=== PATIENT | female | born 1965 | race Caucasian/White ===

== ENCOUNTER 2020-03-16 15:10 | Outpatient (REF) | payer OTHER, SELFPAY ==
--- NOTE | 2020-03-16 | CT_ITS ---
EXAMINATION: CT ABDOMEN AND PELVIS WITH CONTRAST CLINICAL INFORMATION: Lower abdominal pain COMPARISON: 12/16/2018 TECHNIQUE: Multidetector volumetric images were obtained from the superior aspect of the liver through the pubic symphysis following administration 85 mL of Omnipaque 350 intravenous contrast. Sagittal and coronal reformatted images were obtained on the technologist's workstation. Oral contrast: Oral contrast was administered This CT examination was performed using dose optimization techniques as appropriate, variously including the following: *Automated exposure control *Adjustment of mA and/or kV according to patient size (this includes techniques or standardized protocols for targeted exams where dose is matched to indication/reason for exam; i.e. extremities or head) *Use of iterative reconstruction technique DLP: 530 mGy-cm FINDINGS: LUNG BASES: The visualized lung bases are unremarkable. LIVER, GALLBLADDER, AND BILIARY TREE: Diffuse fatty infiltration of the liver. The gallbladder is unremarkable with no evidence of radiopaque gallstones, gallbladder wall thickening, or obvious pericholecystic inflammatory changes. PANCREAS: Unremarkable. SPLEEN: Unremarkable. ADRENAL GLANDS: Unremarkable. KIDNEYS AND URETERS: Redemonstration of the predominantly fatty exophytic mass at the inferior pole of the left kidney likely representing an angiomyolipoma with maximal transverse measurement of 2.4 cm, unchanged. Otherwise unremarkable with no hydronephrosis. Nephrograms are symmetric. BLADDER: Unremarkable. GASTROINTESTINAL TRACT: Small and large bowel loops are unremarkable with no focal inflammatory process or obstruction. ABDOMINAL WALL: No significant hernia is appreciated. LYMPH NODES: Normal. VASCULAR: Unremarkable. PELVIC VISCERA: The uterus is absent. OSSEOUS STRUCTURES: Unremarkable. IMPRESSION: Stable predominantly fatty exophytic lesion at the inferior pole of the left kidney, likely an angiomyolipoma, measuring 2 cm. No focal inflammatory process or obstruction. Diffuse fatty infiltration of the liver.
[2020-03-16] MEDS: iohexoL 350 MG/ML 100 ML INFUS..BTL IV (16:31)
[2020-03-16] MEDS: Barium Sulfate Oral (Berry) 450 ML ORAL.SUSP PO ×2 (16:32→16:33)
== END 2020-03-16 15:11 | disposition home or self-care (01) ==
LOC: HO.CT 15:10
PROVIDERS: PCP Internal Medicine; Visit Provider Nurse Practitioner
DX: R10.30 Lower abdominal pain, unspecified (principal); K70.31 Alcoholic cirrhosis of liver with ascites
CPT/HCPCS: 74177

== ENCOUNTER 2020-03-23 10:48 | Day surgery (SDC) | payer OTHER, SELFPAY ==
[2020-03-23 10:51] VITALS: BP 142/85; PULSE 66; RESP 16; TEMP 36.2; O2SAT 99
--- NOTE | 2020-03-23 10:59 | P.CONAN_ITS ---
[facility] Past Medical History Medical History Dyspepsia Fibromyalgia Normal colonoscopy SVT (supraventricular tachycardia) Tachycardia Vomiting and diarrhea Surgical History Surgical History History of breast biopsy History of esophagogastroduodenoscopy (EGD) History of hysterectomy Tubal ligation status Social History Social History Smoking Status: Never smoker Use of substances other than those prescribed or required for medical reasons: No Advance Directives: No Meds Allergies Allergy/AdvReac Type Severity Reaction Status Date / Time No Known Allergies Allergy Verified 03/19/20 13:06 Home Medications Medication Instructions Recorded Confirmed Type Cymbalta 30 mg PO DAILY 03/19/20 03/19/20 History cyclobenzaprine 10 mg PO PRN 03/19/20 History gabapentin 1 cap PO DAILY 03/19/20 03/19/20 History lubiprostone [Amitiza] 24 mcg PO BID 03/19/20 03/19/20 History metoclopramide HCl [Reglan] 5 mg PO DAILY 03/19/20 03/19/20 History metoprolol succinate 1 tab PO DAILY 03/19/20 03/19/20 History promethazine 25 mg MN Q12H PRN 03/19/20 03/19/20 History tramadol 1 tab PO DAILY PRN 03/19/20 03/19/20 History Exam Exam Date and Time: March 23, 2020 1059 Height,Weight and Vital Signs: Height 5 ft 6 in Weight 84.395 kg Last Vital Signs Temp 97.1 F 03/23/20 10:51 Pulse 66 03/23/20 10:51 Resp 16 03/23/20 10:51 BP 142/85 H 03/23/20 10:51 Pulse Ox 99 03/23/20 10:51 Airway Mallampati Class: I TM Dist: >3cm Neck ROM: Full Heart: RRR Lungs: CTA Assessment and Plan Assessment Anesthesia Assessment: Anesthesia Plan Discussed and Chart Reviewed Final Anesthetic Review NPO: Yes ASA Class: II Patient Risk: Low Procedure Risk: Intermediate Anesthetic Plan Anesthetic Plan: MAC: Disposition: Standard PACU
--- NOTE | 2020-03-23 11:00 | MHC.SHP ---
Pre-Procedural Eval Section A Changes since office visit: No Cold of Flu in the past 2 weeks The History & Physical has been completed within 30 days and I have reviewed it.: No Section B Chief Complaint: Lower Abd pain, Nausea and Vomiting, constipation Details of Present Illness: Nausea and vomiting, epigastric and lower abdominal pain, abdominal bloating. Relevant Family History (Specify if Yes): No Relevant Social History: None Present Medications: see Short Stay Collaborative assessment Medical History: Significant History ( Dyspepsia. Fibromyalgia. Tachycardia. SVT. ) History of Previous Operations: No relevant previous surgery (hyst - ovaries remain tubal ligation right breast biopsy 2005 EGD-[place] 2018 colonoscopy-[place] 2010 ) Allergies: Allergies Allergy/AdvReac Type Severity Reaction Status Date / Time No Known Allergies Allergy Verified 03/19/20 13:06 Review of Systems Sugical H&P ROS: Negative: Constitution, Respiratory and Musculoskeletal and Yes, Specify: Cardiovascular (Palpitations) and Gastrointestinal (abdoiminal pain, constipation) Exam Surgical H&P Exam: Normal: Heart, Normal: Lungs, Normal: Extremities and Normal: Abdomen Plan Diagnosis/Plan: Unchanged Patient has been examined and remains a candidate for the planned procedure
--- NOTE | 2020-03-23 11:21 | P.BOP_ITS ---
Brief Operative Note Date of procedure: 03/23/20 Pre-op diagnosis: nausea and vomiting, abdominal pain and bloating, chronic c onstipation. Post-op diagnosis: other ( Gastritis, colon polyps, diverticulosis, hemorrhoids) Procedure: FLEXIBLE TRANSORAL UPPER GASTROINTESTINAL ENDOSCOPY AND COLONOSCOPY PROCEDURE NOTE UPPER ENDOSCOPY WITH BIOPSIES Consent: Indications for the procedure and potential complications of bleeding, perforation, reaction to medications and missed diagnosis were discussed with the patient with the help of a mixer operator hot metal and informed consent was obtained. Instrument: Olympus GIF H 190 mid size upper endoscope Monitoring: Vital signs and clinical assessment, continuous EKG monitoring, Pulse oximetry, Carbon Dioxide monitoring and blood pressure monitoring were done throughout the procedure. Procedure: The patient was placed in the left lateral decubitis position and pre-procedure medications were administered and a bite block was placed. The endoscope was inserted into the mouth and advanced under direct vision to the third part of duodenum. A careful inspection was made as the upper endoscope was withdrawn including a retroflexed examination of the proximal stomach; Findings and interventions are described below. Findings: Larynx: Normal Esophagus: Tortuous esophagus with increased tertiary contractions without stricture or ring. GE junction at 35 cms. No esophagitis or Barretts. Stomach: Moderate diffuse gastric erythema with nodular appearing gastric mucosa and some scarring along the lesser curvature -suggestive of past PUD. Biopsies were obtained from the antrum and body of the stomach. Grade 2 flap valve on retroflexed examination of the cardia. Duodenum: Normal bulb and descending duodenum. Biopsies were obtained from her part duodenum to check celiac sprue Intervention: Biopsies as noted above COLONOSCOPY TILL CECUM WITH BIOPSIES Consent: Indications for the procedure and potential complications of bleeding, perforation, reaction to medications and missed diagnosis were discussed with the patient and informed consent was obtained. Instrument: Olympus PCF H 190 L variable stiffness pediatric colonoscope Monitoring: Vital signs and clinical assessment, intermittent blood pressure monitoring, continuous EKG monitoring, Pulse oximetry and Carbon Dioxide monitoring were done throughout the procedure. Colon withdrawl time was 28 minutes. Procedure: The patient was placed in the left lateral decubitis position and pre-procedure medications were administered. After a digital rectal examination of the ano-rectum, the video colonoscope was inserted into the rectum and advanced through the colon to the cecum. The colonoscope was slowly withdrawn in a retrograde panoramic fashion and the colon mucosa was carefully examined including a retroflexed view of the rectum. Findings and interventions are described below. Procedure Difficulty: Without difficulty Findings: Terminal Ileum: Distal 2-3 cms was examined and appeared normal - random biopsies were obtained. Cecum: A 4-5 mm sessile polyp overlying the ICV - removed with a cold biopsy. Ascending Colon: Two 4-5 mm sessile polyps removed with cold biopsy. Transverse Colon: Normal Descending Colon: Normal Sigmoid Colon: Moderate diverticulosis Rectum: Normal Ano-rectum: Moderate internal hemorrhoids Colon preparation:Good Impression and Post Procedure Diagnosis: Endoscopy Findings: STOMACH: Moderate diffuse gastric erythema with nodular appearing gastric mucosa.. Biopsies were obtained from the antrum and body of the stomach. DUODENUM: Normal - biopsied to check for celiac sprue. Colonoscopy Findings: Three small polyps removed Random biopsies were obtained from the colon. Moderate diverticulosis seen in the sigmoid colon Moderate hemorrhoids on retroflexed exam - likely source of rectal bleeding Plan: Await pathology results Patient to schedule a FU appointment in the GI Clinic with Marah Pacheco NP. Repeat Colonoscopy interval based on path results - in 3-5 years if polyps are adenomatous and 10 years if polyps are hyperplastic. Above findings were reviewed with the patient and colon polyps, Gastritis and hemorrhoids handouts were given in the discharge area Surgeon: Vicki Mejia MD Anesthesia: MAC (Dr Barragan & Rylee Tatum CRNA) Dev Technical Mgr: Tabitha Smiley Pathology: other (A. small-bowel, B. gastric antrum, C. gastric body, D. ascending colon polyps x 2, E. terminal ileum, F. polyp ileocecal valve, G. random colon biopsies. ) Condition: stable Disposition: PACU
[2020-03-23 12:24] VITALS: BP 128/72; PULSE 69; RESP 18; TEMP 36.1; O2SAT 98
[2020-03-23 12:39] VITALS: BP 145/88; PULSE 62; RESP 18; TEMP 36.1; O2SAT 99
--- NOTE | 2020-03-23 13:07 | HO.POSTANES ---
Post Anesthesia Evaluation Post Anesthesia Evaluation Vital Signs: Vital Signs Temp Pulse Resp BP Pulse Ox 03/23/20 12:39 97 F 62 18 145/88 H 99 03/23/20 12:24 97 F 69 18 128/72 98 03/23/20 10:51 97.1 F 66 16 142/85 H 99 Anesthesia: Monitored Mental Status: Awake Pain Control: Satisfactory Nausea/Vomiting: None Hydration: Adequate Anesthesia-Related Issues: No Anes. Related Issues
--- NOTE | 2020-04-18 15:04 | P.OP_ITS ---
Operative Note Operative Note Narrative: Date of procedure: 03/23/20 Pre-op diagnosis: nausea and vomiting, abdominal pain and bloating, chronic constipation. Post-op diagnosis: other ( Gastritis, colon polyps, diverticulosis, hemorrhoids) Procedure: FLEXIBLE TRANSORAL UPPER GASTROINTESTINAL ENDOSCOPY WITH BIOPSIES AND COLONOSCOPY TO CECUM WITH BIOPSIES UPPER ENDOSCOPY WITH BIOPSIES Consent: Indications for the procedure and potential complications of bleeding, perforation, reaction to medications and missed diagnosis were discussed with the patient with the help of a floor supervisor and informed consent was obtained. Instrument: Olympus GIF H 190 mid size upper endoscope Monitoring: Vital signs and clinical assessment, continuous EKG monitoring, Pulse oximetry, Carbon Dioxide monitoring and blood pressure monitoring were done throughout the procedure. Procedure: The patient was placed in the left lateral decubitis position and pre-procedure medications were administered and a bite block was placed. The endoscope was inserted into the mouth and advanced under direct vision to the third part of duodenum. A careful inspection was made as the upper endoscope was withdrawn including a retroflexed examination of the proximal stomach; Findings and interventions are described below. Findings: Larynx: Normal Esophagus: Tortuous esophagus with increased tertiary contractions without stricture or ring. GE junction at 35 cms. No esophagitis or Barretts. Stomach: Moderate diffuse gastric erythema with nodular appearing gastric mucosa and some scarring along the lesser curvature -suggestive of past PUD. Biopsies were obtained from the antrum and body of the stomach. Grade 2 flap valve on retroflexed examination of the cardia. Duodenum: Normal bulb and descending duodenum. Biopsies were obtained from her part duodenum to check celiac sprue Intervention: Biopsies as noted above COLONOSCOPY TILL CECUM WITH BIOPSIES Consent: Indications for the procedure and potential complications of bleeding, perforation, reaction to medications and missed diagnosis were discussed with the patient and informed consent was obtained. Instrument: Olympus PCF H 190 L variable stiffness pediatric colonoscope Monitoring: Vital signs and clinical assessment, intermittent blood pressure monitoring, continuous EKG monitoring, Pulse oximetry and Carbon Dioxide monitoring were done throughout the procedure. Colon withdrawl time was 28 minutes. Procedure: The patient was placed in the left lateral decubitis position and pre-procedure medications were administered. After a digital rectal examination of the ano-rectum, the video colonoscope was inserted into the rectum and advanced through the colon to the cecum. The colonoscope was slowly withdrawn in a retrograde panoramic fashion and the colon mucosa was carefully examined including a retroflexed view of the rectum. Findings and interventions are described below. Procedure Difficulty: Without difficulty Findings: Terminal Ileum: Distal 2-3 cms was examined and appeared normal - random biopsies were obtained. Cecum: A 4-5 mm sessile polyp overlying the ICV - removed with a cold biopsy. Ascending Colon: Two 4-5 mm sessile polyps removed with cold biopsy. Transverse Colon: Normal Descending Colon: Normal Sigmoid Colon: Moderate diverticulosis Rectum: Normal Ano-rectum: Moderate internal hemorrhoids Colon preparation:Good Impression and Post Procedure Diagnosis: Endoscopy Findings: STOMACH: Moderate diffuse gastric erythema with nodular appearing gastric mucosa.. Biopsies were obtained from the antrum and body of the stomach. DUODENUM: Normal - biopsied to check for celiac sprue. Colonoscopy Findings: Three small polyps removed Random biopsies were obtained from the colon. Moderate diverticulosis seen in the sigmoid colon Moderate hemorrhoids on retroflexed exam - likely source of rectal bleeding Plan: Await pathology results Patient to schedule a FU appointment in the GI Clinic with Marah Pacheco NP. Repeat Colonoscopy interval based on path results - in 3-5 years if polyps are adenomatous and 10 years if polyps are hyperplastic. Above findings were reviewed with the patient and colon polyps, Gastritis and hemorrhoids handouts were given in the discharge area Surgeon: Vicki Mejia MD Anesthesia: MAC (Dr Barragan & Rylee Tatum CRNA) Vending Attendant: Tabitha Smiley Pathology: other (A. small-bowel, B. gastric antrum, C. gastric body, D. ascending colon polyps x 2, E. terminal ileum, F. polyp ileocecal valve, G. random colon biopsies. ) Condition: stable Disposition: PACU
== END 2020-03-23 13:20 | disposition home or self-care (01) ==
PROVIDERS: PCP Internal Medicine; Visit Provider Internal Medicine Gastroenterology
PROC: (CPT 45380; principal; 2020-03-23 13:30)
DX: R10.30 Lower abdominal pain, unspecified (principal); D12.0 Benign neoplasm of cecum; D12.2 Benign neoplasm of ascending colon; K57.30 Diverticulosis of large intestine without perforation or abscess without bleeding; K64.8 Other hemorrhoids; K29.50 Unspecified chronic gastritis without bleeding; B96.81 Helicobacter pylori [H. pylori] as the cause of diseases classified elsewhere; Z79.899 Other long term (current) drug therapy
CPT/HCPCS: 45380; 43239; 88305; 88342

== ENCOUNTER → 2020-03-30 12:55 | Outpatient (BNVA) | payer OTHER, SELFPAY | PROVIDERS: PCP Internal Medicine; Visit Provider Nurse Practitioner | DX: K27.9 Peptic ulcer, site unspecified, unspecified as acute or chronic, without hemorrhage or perforation (principal); B96.81 Helicobacter pylori [H. pylori] as the cause of diseases classified elsewhere; K64.9 Unspecified hemorrhoids; D12.6 Benign neoplasm of colon, unspecified | CPT/HCPCS: 99214 ==

== ENCOUNTER → 2020-05-11 12:43 | Outpatient (BNVA) | payer OTHER, SELFPAY | PROVIDERS: PCP Internal Medicine; Visit Provider Nurse Practitioner | DX: Z76.89 Persons encountering health services in other specified circumstances (principal) ==

== ENCOUNTER 2020-08-13 12:41 | Outpatient (REF) | payer OTHER, SELFPAY ==
--- NOTE | ~2020-08-13 | MM_ITS ---
EXAMINATION: MM SCREENING DIGITAL BREAST TOMOSYNTHESIS, BILATERAL CLINICAL INFORMATION: Screening. Asymptomatic. The lifetime risk of breast cancer based on the Tyrer-Cuzick Model is 12%. COMPARISON: Mammography: 08/06/2019, 10/08/2018, 02/12/2018 TECHNIQUE: Digital breast tomosynthesis is performed in both the craniocaudal and mediolateral oblique views along with computer-aided detection (CAD). Synthesized 2D images are generated from the tomosynthesis. FINDINGS: There are scattered areas of fibroglandular density (ACR BI-RADS breast composition Category b). There are no significant masses, abnormal calcifications, or other abnormalities. Parenchymal pattern is similar to prior studies. No significant change. Again, there is dermal lesion overlying the lower left breast. There are 3 biopsy clip markers again seen on the left upper outer quadrant. MM/MM tomosynthesis screening BI IMPRESSION: No significant changes from prior exams. ASSESSMENT: BI-RADS 2: Benign RECOMMENDATION: Routine annual mammography screening. This patient's information was entered into a reminder system with a target due date for their next mammogram.
== END 2020-08-13 12:42 | disposition home or self-care (01) ==
LOC: HO.MAMMO 12:41
PROVIDERS: PCP Internal Medicine; Visit Provider Internal Medicine
DX: Z12.31 Encounter for screening mammogram for malignant neoplasm of breast (principal)
CPT/HCPCS: 77063; 77067

== ENCOUNTER → 2020-09-02 13:38 | Outpatient (BNVA) | payer OTHER, SELFPAY | PROVIDERS: PCP Internal Medicine; Visit Provider Internal Medicine Cardiovascular Disease | DX: R00.2 Palpitations (principal) | CPT/HCPCS: 93005; 99202 ==

== ENCOUNTER → 2020-10-12 13:38 | Outpatient (BNVA) | payer OTHER, SELFPAY | PROVIDERS: PCP Internal Medicine; Visit Provider Nurse Practitioner ==

== ENCOUNTER → 2020-10-15 09:29 | Outpatient (REF) | payer OTHER, SELFPAY ==
--- NOTE | 2020-10-15 09:32 | CA_ITS ---
Transthoracic Echocardiogram Patient (Last, First, Middle): Melanie Villarreal, Gender: Female Date of : 1965 Age: 55 Procedure Date: 10/15/2020 Procedure Type: Transthoracic Echocardiogram Location: OP Height: 167.64 cm Weight: 83.92 kg BSA: 1.93 m2 Heart Rate: bpm BP: 145 / 89 mmHg [employer] Technician: DSG Referring MD: Lenny Barrientos MD Symptoms: R00.2 - Palpitations Study Quality: Good ECG Rhythm: Sinus Conclusions: - The left ventricular systolic function is normal. The visually estimated ejection fraction is between 65-70%. - No obvious valvular pathology seen on this study. - There is an interatrial septal aneurysm seen bowing to the right. Interatrial shunt cannot be excluded. - Recommend contrast study to evaluate intracardiac shunting (bubble study). Findings Left Ventricle Normal left ventricular cavity size. There is normal left ventricular wall thickness. The left ventricular systolic function is normal. The visually estimated ejection fraction is between 65-70%. There is no evidence of regional wall motion abnormalities. Diastolic function is normal for age. Right Ventricle Normal right ventricular cavity size and systolic function. Atria The left atrium is normal in size. There is an interatrial septal aneurysm seen bowing to the right. Interatrial shunt cannot be excluded. The right atrium is normal in size. Aortic Valve There is a normal trileaflet aortic valve. There is no aortic valve stenosis. There is no aortic valve regurgitation. Mitral Valve The mitral valve appears normal. There is trace mitral valve regurgitation. There is no mitral valve stenosis. Pulmonic Valve The pulmonic valve was not well visualized. Tricuspid Valve Normal tricuspid valve structure. There is mild tricuspid valve regurgitation. The pulmonary artery systolic pressure is normal. Great Vessels The aortic annulus, sinuses of valsalva, asc aorta, and aortic arch are normal in size. Venous The inferior vena cava is normal in size and collapses greater than 50% with inspiration. Pericardium/Pleural There is no evidence of pericardial effusion. Prior Study Comparison No prior study available for comparison. Recommendations, Care & Conclusions No obvious valvular pathology seen on this study. Recommend contrast study to evaluate intracardiac shunting. Measurements 2D Linear Measurements IVSd: 1.02 0.6-0.9/0.6-1.0 cm LVIDd: 4.32 3.9-5.3/4.2-5.9 cm LVIDd Index: 2.24 2.4-3.2/2.2-3.1 cm/m2 LVIDs: 3.11 2.0-3.6 cm LVPWd: 0.95 0.7-1.1 cm Ao Root: 2.80 2.1-3.5 cm LA Diam: 3.80 2.7-3.8/3.0-4.0 cm LAIDs Index: 1.97 1.5-2.3 cm/m2 LV Mass: 174.97 67-162/88-224 g LV Mass Index: 90.66 43-95/49-115 g/m2 LVOT Diam: 1.90 3.0+(-)1.3 cm 2D Systolic Function EF 4C: 68.80 >55% EF 2C: 61.60 >55% EF BiP: 64.80 >55% Mitral Valve MV Pk E: 0.66 MV PK A: 0.83 MV Decel Time: 223.00 E/A: 0.80 E'Lateral: 8.90 E'Medial: 6.19 E/E' Med: 10.70 E/E' Lat: 7.40 PHT: 66.00 MVA PHT: 3.33 Decel Laurel: 3.08 Aortic Valve AoV Pk Maykel: 1.26 AoV Pk Grad: 6.00 LVOT LVOT Pk Maykel: 1.09 LVOT Mn Maykel: 0.71 LVOT VTI: 0.26 LVOT Pk Grad: 5.00 LVOT Mn Grad: 2.00 LVOT Diam: 1.90 LVOT Area: 2.84 Diastolic Function MV Pk E: 0.66 MV Pk A: 0.83 E/A: 0.80 E'Medial: 6.19 E/E' Med: 10.70 E' Laterial: 8.90 E/E' Lat: 7.40 Tricuspid Valve TR Pk Maykel: 1.91 TR Pk Grad: 15.00 RA Press: 3.00 RVSP: 18.00 Great Vessels Aorta Ao Root-2D: 2.80 2.0-3.7 cm Ao Asc: 3.00 2.1-3.4 cm Ao Arch: 2.80 Updated in Other Vendor System with Status of Final Alexander Mas MD electronically signed on 10/16/2020 4:05:38 PM with status of Final
--- NOTE | 2020-10-15 10:00 | ECG_ITS ---
Hook-up date: 2020-10-15 10:40:00 Duration: 47:59:00 Test Indications: PALPITATIONS Medications: [id number] QRS complexes 3 Ventricular ectopics which represent <1 % of total QRS comp. 2 Supraventricular ectopics which represent <1 % of total QRS comp. * Paced QRS complexs which represent % of total QRS comp. VENTRICULAR ECTOPY 3 Isolated 0 Bigeminal Cycles 0 Couplets 0 Runs 0 Beats in Runs * Beats LONGEST at * BPM at :: -- * Beats FASTEST at * BPM at :: -- SUPRAVENTRICULAR ECTOPY 2 Isolated 0 Couplets 0 Runs 0 Beats in Runs * Beats LONGEST at * BPM at :: -- * Beats FASTEST at * BPM at :: -- HEART RATES 52 MIN at 05:15:32 2020-10-17 82 AVG 131 MAX at 12:34:33 2020-10-16 LONGEST RR 1.2320 secs at 02:25:24 2020-10-16 S-T LEVELS Channel 1 - 128 mm at 10:40:00 2020-10-15 - 128 mm at 10:40:00 2020-10-15 Channel 2 - 128 mm at 10:40:00 2020-10-15 - 128 mm at 10:40:00 2020-10-15 Channel 3 - 128 mm at 02:95:91 -- - 128 mm at 02:95:91 Basic rhythm Normal sinus rhythm No long pause or profound bradycardia No dangerous dysrhythm periods Patient did not report any symptoms in the diary Referred By: Lenny Barrientos Overread By: LAKESHA LLAMAS MD
== END ==
LOC: HO.CARD 09:29
PROVIDERS: PCP Internal Medicine; Visit Provider Internal Medicine Cardiovascular Disease
DX: R00.2 Palpitations (principal)
CPT/HCPCS: 93225; 93226; 93306

== ENCOUNTER → 2020-10-26 14:48 | Outpatient (BNVA) | payer OTHER, SELFPAY | PROVIDERS: PCP Internal Medicine; Visit Provider Nurse Practitioner ==

== ENCOUNTER → 2020-11-19 07:37 | Outpatient (REF) | payer OTHER, SELFPAY ==
--- NOTE | 2020-11-19 07:40 | CA_ITS ---
Transthoracic Echocardiogram Patient (Last, First, Middle): Melanie Villarreal, Gender: Female Date of : 1965 Age: 55 Procedure Date: 11/19/2020 Procedure Type: Transthoracic Echocardiogram Location: OP Height: 167.6 cm Weight: 83.92 kg BSA: 1.93 m2 Heart Rate: bpm Maintainer Plant: DEB Mcgee MD: Lenny Barrientos MD Educational Psychology Teacher: Skip Phillips MD Symptoms: I25.3 - Aneurysm of heart Study Quality: Fair ECG Rhythm: Sinus Conclusions: - No evidence of PFO Findings Atria There is no evidence of interatrial shunt by agitated saline. Updated in Other Vendor System with Status of Final Skip Phillips MD electronically signed on 11/20/2020 4:26:39 PM with status of Final
== END ==
LOC: HO.CARD 07:37
PROVIDERS: Visit Provider Internal Medicine Cardiovascular Disease
DX: I25.3 Aneurysm of heart (principal)
CPT/HCPCS: 93308

== ENCOUNTER → 2020-11-23 08:51 | Outpatient (BNVA) | payer OTHER, SELFPAY | PROVIDERS: PCP Internal Medicine; Visit Provider Nurse Practitioner ==

== ENCOUNTER → 2020-12-02 14:17 | Outpatient (BNVA) | payer OTHER, SELFPAY | PROVIDERS: PCP Internal Medicine; Referring Provider Internal Medicine; Visit Provider Internal Medicine Cardiovascular Disease | DX: R00.2 Palpitations (principal) | CPT/HCPCS: 99212 ==

== ENCOUNTER 2020-12-30 15:38 | Outpatient (REF) | payer OTHER, SELFPAY ==
--- NOTE | ~2020-12-30 | US_ITS ---
EXAMINATION: US RETROPERITONEAL LIMITED (RENAL ONLY) CLINICAL INFORMATION: Hypertension. Angiolipoma. COMPARISON: CT abdomen and pelvis 03/16/2020. Ultrasound abdomen 12/24/2019 and 12/11/2018. X-ray abdomen KUB 12/11/2018. TECHNIQUE: Real-time imaging of the kidneys. FINDINGS: RIGHT KIDNEY: 11.2 x 4.3 x 4.2 cm (SAG x AP x TRV). The kidney is normal in size, contour, and echogenicity. Renal cortical thickness is normal. No calculi or focal parenchymal lesions. No hydronephrosis. Incidentally noted is extrarenal kidney pelvis. LEFT KIDNEY: 10.1 x 5.0 x 3.9 cm (SAG x AP x TRV). The kidney is normal in size, contour, and echogenicity. Renal cortical thickness is normal. No renal calculi or hydronephrosis. There is an echogenic lesion with flow measuring 2.4 x 2.0 x 2.[address] it measured 2.4 cm. US/US renal BI IMPRESSION: 1. Echogenic mass, lower pole left kidney, likely angiomyolipoma similar to previous CT abdomen exam 03/16/2020. 2. Extrarenal right kidney pelvis. 3. No echogenic stones or hydronephrosis.
== END 2020-12-30 15:39 | disposition home or self-care (01) ==
LOC: HO.US 15:38
PROVIDERS: Visit Provider Internal Medicine Nephrology
DX: D17.9 Benign lipomatous neoplasm, unspecified (principal)
CPT/HCPCS: 76775

== ENCOUNTER → 2021-01-03 15:05 | Outpatient (BNVA) | payer OTHER, SELFPAY | PROVIDERS: PCP Internal Medicine | DX: R32 Unspecified urinary incontinence (principal); R39.15 Urgency of urination; N20.2 Calculus of kidney with calculus of ureter; M79.7 Fibromyalgia; I47.1 Supraventricular tachycardia; Z90.710 Acquired absence of both cervix and uterus; Z98.51 Tubal ligation status | CPT/HCPCS: 99202 ==

== ENCOUNTER 2021-03-10 13:12 | Outpatient (REF) | payer OTHER, SELFPAY ==
--- NOTE | ~2021-03-10 | MR_ITS ---
MRI OF THE BRAIN WITHOUT IV CONTRAST INDICATION: Headache. COMPARISON: None available. TECHNIQUE: Multiplanar multisequence MR imaging of the brain was obtained without IV contrast. FINDINGS: There is no hydrocephalus, extra-axial surface collection, or herniation. Mild chronic microangiopathy. The major flow voids at the skull base are preserved. There is no acute infarct on diffusion-weighted imaging. There is no intracranial hemorrhage on the gradient recalled echo acquisition. The midline structures are normal. The cerebellar tonsils are normally positioned. The cerebellum and brainstem are normal. The craniocervical junction is normal. Osseous marrow signal intensity is homogenous. The visualized soft tissues are unremarkable. MR/MR head/brain wo con IMPRESSION: - No acute intracranial findings. - Mild chronic microangiopathy.
== END 2021-03-10 13:13 | disposition home or self-care (01) ==
LOC: HO.MRI 13:12
PROVIDERS: Visit Provider Internal Medicine
DX: R51.9 Headache, unspecified (principal)
CPT/HCPCS: 70551

== ENCOUNTER → 2021-04-29 13:40 | Outpatient (BNVA) | payer OTHER, SELFPAY | PROVIDERS: PCP Internal Medicine; Visit Provider Nurse Practitioner Family | DX: M89.49 Other hypertrophic osteoarthropathy, multiple sites (principal) | CPT/HCPCS: 99212 ==

== ENCOUNTER → 2021-05-27 15:35 | Outpatient (BNVA) | payer OTHER, SELFPAY | DX: R33.9 Retention of urine, unspecified (principal) | CPT/HCPCS: 51798; 99212 ==

== ENCOUNTER → 2021-06-08 10:48 | Outpatient (BNVA) | payer OTHER, SELFPAY | PROVIDERS: PCP Internal Medicine; Visit Provider Anesthesiology | DX: M79.7 Fibromyalgia (principal); M25.50 Pain in unspecified joint; M47.816 Spondylosis without myelopathy or radiculopathy, lumbar region; M17.10 Unilateral primary osteoarthritis, unspecified knee | CPT/HCPCS: 99202 ==

== ENCOUNTER 2021-07-20 14:49 | Outpatient (REF) | payer OTHER, SELFPAY ==
--- NOTE | ~2021-07-20 | MR_ITS ---
EXAMINATION: MR LUMBAR SPINE WITHOUT CONTRAST CLINICAL INFORMATION: Lower back and hip pain with bilateral leg pain, weakness, numbness, toe numbness, or weakness. Spondylosis. COMPARISON: Lumbar spine radiographs dated 07/30/2019. TECHNIQUE: MRI of the lumbar spine was obtained using routine sequences without contrast. FINDINGS: VERTEBRAL BODIES AND PARASPINAL STRUCTURES: There are diminutive T12 ribs as seen on the prior radiographs. The lumbar lordosis is maintained. Minimal grade 1 anterolisthesis of L4 on L5, unchanged when compared to the prior radiographs. No acute fracture or subluxation. No loss of vertebral body height. Loss of intervertebral disc height with disc desiccation at L2 through L5. No marrow edema to suggest acute osseous injury. The visualized paraspinal soft tissues are unremarkable. CONUS MEDULLARIS AND CAUDA EQUINA: Normal, terminating at the level of T12. SPINAL LEVELS: T12-L1: No significant disc bulge. No central canal or neural foraminal stenosis. L1-L2: Minimal disc bulge without significant central canal or neural foraminal stenosis. L2-L3: Minimal disc bulge with a shallow left subarticular protrusion which abuts the exiting left L2 nerve root in the extraforaminal space. Bilateral facet arthropathy and thickening of the ligamentum flavum with mild left neural foraminal stenosis. L3-L4: Mild broad-based disc bulge with a superimposed shallow left extraforaminal disc protrusion which abuts the exiting left L3 nerve root. Bilateral facet arthropathy and thickening of the ligamentum flavum with mild left neural foraminal stenosis. L4-L5: Broad-based disc bulge with bilateral facet arthropathy and thickening of the ligamentum flavum causing mild central canal stenosis as well as mild bilateral neural foraminal stenosis. L5-S1: No significant disc bulge. Bilateral facet arthropathy. No central canal or neural foraminal stenosis. MR/MR lumbar spine wo con IMPRESSION: 1. Minimal grade 1 anterolisthesis of L4 on L5, unchanged. There is a broad-based disc bulge with bilateral facet arthropathy and thickening of the ligamentum flavum causing mild central canal and mild bilateral neural foraminal stenosis. 2. Minimal disc bulge at L2-L3 with a shallow left subarticular protrusion abutting the exiting left L2 nerve root. Bilateral facet arthropathy and thickening of the ligamentum flavum causing mild left neural foraminal stenosis. 3. Broad-based disc bulge at L3-L4 with a shallow left extraforaminal disc protrusion abutting the exiting left L3 nerve root. Bilateral facet arthropathy and thickening of the ligamentum flavum with mild left neural foraminal stenosis.
== END 2021-07-20 14:50 | disposition home or self-care (01) ==
LOC: HO.MRI 14:49
PROVIDERS: Visit Provider Anesthesiology
DX: M47.816 Spondylosis without myelopathy or radiculopathy, lumbar region (principal); M51.36 Other intervertebral disc degeneration, lumbar region
CPT/HCPCS: 72148

== ENCOUNTER 2021-08-04 11:13 | Emergency (ER) | payer OTHER, SELFPAY ==
--- NOTE | ~2021-08-04 | CT_ITS ---
EXAMINATION: CT ABDOMEN AND PELVIS WITH CONTRAST CLINICAL INFORMATION: History diarrhea. Question diverticulitis. COMPARISON: March 16, 2020 TECHNIQUE: Multidetector volumetric images were obtained from the superior aspect of the liver through the pubic symphysis following administration 85 mL of Omnipaque 350 intravenous contrast. Sagittal and coronal reformatted images were obtained on the technologist's workstation. Oral contrast: No This CT examination was performed using dose optimization techniques as appropriate, variously including the following: *Automated exposure control *Adjustment of mA and/or kV according to patient size (this includes techniques or standardized protocols for targeted exams where dose is matched to indication/reason for exam; i.e. extremities or head) *Use of iterative reconstruction technique DLP: 932 mGy-cm FINDINGS: LUNG BASES: No pleural or pericardial effusion. No significant parenchymal disease. LIVER, GALLBLADDER, AND BILIARY TREE: There is fatty infiltration of the liver as well as hepatomegaly with vertical span of 21 cm. No focal hepatic mass or intrahepatic bile duct dilatation is seen. The gallbladder is unremarkable with no evidence of radiopaque gallstones, gallbladder wall thickening, or obvious pericholecystic inflammatory changes. PANCREAS: Unremarkable. SPLEEN: Unremarkable. ADRENAL GLANDS: Unremarkable. KIDNEYS AND URETERS: There is no evidence of hydronephrosis or renal calculi. Within the lower pole of the left kidney there is an exophytic fat-containing mass measuring approximately 2.2 x 1.8 x 1.2 cm in size. This has been present since previous study of December 16, 2018. BLADDER: Unremarkable. GASTROINTESTINAL TRACT: No dilated loops of large or small bowel evident. No free air or free fluid. No evidence of acute diverticulitis. No pericolonic inflammatory change to suggest colitis. The appendix is not visualized. ABDOMINAL WALL: No significant hernia is appreciated. LYMPH NODES: No lymphadenopathy appreciated. VASCULAR: Portal vein patent. No abdominal aortic aneurysm. No significant calcified plaque appreciated. PELVIC VISCERA: Unremarkable. OSSEOUS STRUCTURES: No destructive bony lesion identified. CT/CT abdomen pelvis w con IMPRESSION: Hepatomegaly with fatty infiltration of the liver. 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 No evidence of obstructive uropathy. No definite evidence to suggest colitis. Fleischner guidelines were followed.
--- NOTE | ~2021-08-04 | XR_ITS ---
EXAMINATION: XR CHEST CLINICAL INFORMATION: latic acid elevated, sob, abd pain COMPARISON: None TECHNIQUE: Frontal portable view of the chest was obtained. 5:45 PM FINDINGS: No significant abnormality is noted involving the heart, lungs, mediastinum, bony thorax or soft tissues. XR/XR chest 1V IMPRESSION: Unremarkable examination.
[2021-08-04 11:33] VITALS: BP 170/97; PULSE 92; RESP 16; TEMP 36.8; O2SAT 100; BMI 29.5
--- NOTE | 2021-08-04 12:10 | ED_ITS ---
HPI - Abdominal Pain General Chief Complaint: Abdominal Pain Stated Complaint: abd pain rectal bleeding Time Seen by Provider: 08/04/21 11:32 Source: patient Mode of arrival: ambulatory Limitations: language barrier (Albanian-speaking medical detailist utilized) History of Present Illness HPI narrative: Patient is a 56-year-old female with a past medical history of chronic idiopathic constipation, GERD, gastroparesis, fatty liver, hypertension, fibromyalgia, hemorrhoids, H pylori. Patient presents emergency department for evaluation of abdominal pain and diarrhea. Patient reports he has been experiencing constipation over the last few days for which she has taken Colace. Three days ago she had an episode of dizziness associated with straining on the toilet, but no further dizziness since then. Reports that her stools were loose/watery and with mucus. Yesterday she was unable to move her bowels. This morning she woke at 03:00 with severe lower abdominal cramping, and bright red blood from her rectum, no further bowel movements. There is associated nausea but no vomiting. Overall she reports diffuse lower abdominal pain to be constant for the past few days but varying in intensity. She denies any fevers, chills, chest pain, palpitations, shortness of breath, difficulty breathing, dysuria, urinary frequency/urgency/hesitancy, pelvic pain, vaginal discharge, abnormal vaginal bleeding, lower back pain. Patient is followed by GI at [facility] elicited complaint: abdominal pain Pertinent past history: constipation Onset (ago): day(s) Pain Consistency: constant Location: diffuse Pain scale (0-10): 7 Quality: cramping Associated symptoms: nausea and hematochezia Related Data Home Medications Medication Instructions Recorded Confirmed dicyclomine 10 mg capsule 10 mg PO TID 07/29/20 01/26/21 Previous Rx's Medication Instructions Recorded duloxetine 30 mg capsule,delayed 30 mg PO DAILY #90 cap 07/02/20 release metoclopramide HCl 5 mg tablet 5 mg PO DAILY 30 Days #60 tab 10/12/20 (Reglan) omeprazole 20 mg capsule,delayed 20 mg PO BID #30 cap 10/12/20 release cyclobenzaprine 10 mg tablet 10 mg PO BEDTIME PRN 90 Days #90 10/14/20 tab gabapentin 400 mg capsule 400 mg PO DAILY 90 Days #90 cap 10/14/20 trazodone 50 mg tablet 50 mg PO BEDTIME PRN 90 Days #90 11/01/20 tab diclofenac sodium 1 % topical gel 2 g TOPICAL QID #100 g 11/16/20 (Voltaren) Proctosol HC 2.5 % topical cream 1 appl PA BID 30 Days #28.35 g NS 11/23/20 perineal applicator (hydrocortisone) bisacodyl 5 mg tablet,delayed 10 mg PO BEDTIME 30 Days #60 tab 11/23/20 release (Dulcolax (bisacodyl)) docusate sodium 100 mg capsule 100 mg PO .DAILY WITH FOOD 30 Days 11/23/20 (Colace) #30 cap simethicone 180 mg capsule 180 mg PO QID 30 Days #120 cap 11/23/20 linaclotide 145 mcg capsule 145 mcg PO DAILY 30 Days #30 cap 02/28/21 Shower Chair #1 ea 03/15/21 walker #1 ea 03/15/21 disposable gloves (Biobrane Gloves #200 ea 04/18/21 Medium) wipes #200 ea 07/04/21 underpads 30 X 36 (Certainty #40 ea 07/05/21 Underpads) hydrochlorothiazide 12.5 mg tablet 12.5 mg PO DAILY 90 Days #90 tab 07/11/21 metoprolol succinate 25 mg 25 mg PO DAILY #30 tab 08/02/21 tablet,extended release 24 hr tramadol 50 mg tablet 50 mg PO DAILY PRN #30 tab 08/02/21 Allergies Allergy/AdvReac Type Severity Reaction Status Date / Time No Known Allergies Allergy Verified 06/08/21 11:52 Review of Systems Review of Systems Constitutional : No Weight loss, No Fever, No Chills ENT/Mouth :? No sore throat, No Rhinorrhea Eyes: No Swelling, No Redness Cardiovascular : No Chest Pain, No SOB, No Edema Respiratory : No Cough, No Sputum, No Wheezing Gastrointestinal : Positive Nausea, no Vomiting, positive Diarrhea, positive abdominal pain, positive Hematochezia, No Melena Genitourinary : No Dysuria, No Urinary Frequency, No Hematuria, No Urgency? Musculoskeletal : No joint pain, No Myalgias, No Joint Swelling Skin : No Skin Lesions, No rash Neuro : No Weakness, No Numbness, No Dizziness, No Headache Psych : No Anxiety/Panic, No Depression Heme/Lymph: No Bruising, No Lymphadenopathy Endocrine : No Polyuria, No Polydipsia All other systems reviewed and are negative. [facility] Past Medical History Attestation statement: The following information was validated with the patient. Source: old records reviewed Medical History Disc degeneration, lumbar Dyspepsia Essential hypertension Fibromyalgia Headache Knee osteoarthritis Normal colonoscopy Osteoarthritis Physical exam Polyarthralgia Retention of urine Skin lesion Spondylosis of lumbar spine Tachycardia Urinary incontinence Vomiting and diarrhea Surgical History History of breast biopsy (~2005) History of esophagogastroduodenoscopy (EGD) (~2017) History of hysterectomy Hx of colonoscopy (~2010) Tubal ligation status Family History Family History Father No problems noted. Mother Pulmonary hypertension CVD (cardiovascular disease) HTN (hypertension) Maternal Aunt Breast cancer Maternal Aunt Breast cancer Paternal Aunt Lymphoma Paternal Uncle Gastric cancer Other Cancer Diabetes Social History Social History Household Members: Family Housing: Apartment Alcohol intake: never Patient Tobacco Use Status: Never used Tobacco e-Cigarette/Vaping Use: Never Used Second Hand Smoke Exposure: No Advance Directives: No Advance Directives Information Provided: No service: No Current occupational status: unemployed Physical Exam ED Vital Signs: Vital Signs - 24 hr 08/04/21 11:33 08/04/21 14:12 Temperature 98.2 F Pulse Rate 92 75 Respiratory Rate 16 16 Blood Pressure 170/97 H 153/91 H Pulse Oximetry 100 100 BMI result Body Mass Index 29.5 Vital signs have been reviewed and appeared to be correct. Blood pressure initially elevated 170/97. Heart rate normal.? Respiration rate normal. Temperature normal.? Oxygen saturation normal. Appearance: Alert.?Oriented to person, place and time. No acute distress.?Normal affect. Eyes: Pupils equal, round and reactive to light.? ENT: Pharynx normal.?? Neck: Normal inspection.? Neck supple.?? CVS: Heart sounds normal. Normal heart rate and rhythm.? Pulses normal.?? Respiratory: No respiratory distress.? Lung sounds clear to auscultation bilaterally?? Abdomen: Soft with diffuse tenderness in the right lower quadrant, left lower quadrant, in mid lower abdomen. No rebound tenderness. Normoactive bowel sounds. No pulsatile mass.??Rectal examination performed with computer installer Justice, no hematochezia, no active homrrhoidal bleeding, there are external hemorrhoids, no stool in rectum to assess for occult blood. Skin: Skin warm and dry.? Normal skin color.? Normal skin turgor.?? Extremities: No lower extremity edema.? Neuro: Moves all extremities spontaneously. Sensation intact bilaterally. CN II- XII intact. No focal neuro deficits. Ambulates with normal steady gait. Course Course Course Narrative: Patient is a 56-year-old female being evaluated for abdominal pain, diarrhea and rectal bleeding. Will obtain CBC to evaluate for leukocytosis/ anemia, CMP and lipase to evaluate for abnormal electrolytes /abnormal renal function/ abnormal hepatic/biliary function. Urinalysis to evaluate for infection/ microscopic hematuria. Her history and physical exam are not consistent with appendicitis, she has no peritoneal signs, involuntary guarding, or percussive tenderness. She is afebrile with stable vital signs. Will obtain CT of the abdomen to exclude diverticulitis or additional intra-abdominal pathology. Not consistent with AAA, aortic dissection, ACS, hernia, bowel obstruction. Discussed with patient having exam however she declines. Patient will receive IV Zofran for nausea, IV Toradol for abdominal pain, and additional 1 L normal saline. Disposition will be pending results. Reevaluation(s) Reevaluation #1: CBC is unremarkable. CMP and lipase are unremarkable. COVID-19 testing is negative. Occult stool card was sent by nursing staff but no specimen was placed on card, therefore negative result isn't valid. Lactic acid is elevated at 2.7 but I suspect this is due to volume depletion with dehydration, Patient has already received normal saline 1 L IV, currently no concern for bacterial infection. Time: 14:30 Reevaluation #2: Patient reports improvement in pain after receiving medication, currently 0/10. She has not experienced any episodes of diarrhea while in the emergency department or any bright red blood per rectum. Abdominal CT is pending at this time. Will plan for p.o. trial. Time: 15:32 Reevaluation #3: Patient ambulated to the bathroom, provided urine specimen. Patient had a very small bowel movement was clear mucus with bright red blood. CT of the abdomen reveals hepatomegaly with fatty infiltrate which is not a new finding according to patient. No acute intra-abdominal pathology suggestive of patient's prior symptoms. No diverticulitis or colitis. Tolerted PO trial. She has had no further episodes of abdominal pain and cramping, I suspect her pain is most consistent with her chronic constipation. UA is pending at this time. Advised patient of results, discussed that she will need to follow up outpatient with her GI provider. If she develops any new or worsening symptoms such as fevers, chills, severe abdominal pain, nausea persistent vomiting, large amounts of bloody or watery diarrhea she should return back to the emergency department for further evaluation. Patient signed out to Aric Zimmerman pending results of urinalysis and repeat lactic acid. Time: 16:05 [facility] - Abdominal Pain Medical Records Attestation: I reviewed the patient's medical records. Lab Data Attestation: I reviewed the patient's lab results. Result diagrams: 08/04/21 12:37 08/04/21 12:37 Labs: Lab Results 08/04/21 08/04/21 08/04/21 Range/Units 12:37 12:37 13:22 WBC 9.7 (4.8-10.8) X10*3/uL RBC 5.29 (4.20-5.50) X10*6/uL Hgb 14.3 (12.0-16.0) g/dl Hct 44.1 (37.0-47.0) % MCV 83.4 (80.0-98.0) fL MCH 27.0 (27.0-33.0) pg MCHC 32.4 (31.0-35.0) g/dl RDW 13.6 (11.0-16.0) % Plt Count 238 (160-400) X10*3/uL MPV 10.9 (9.4-12.3) fL Immature Gran % (Auto) 0.3 (0.0-0.4) % Neut % (Auto) 62.8 (45-73) % Lymph % (Auto) 31.3 (20-40) % [place] % (Auto) 4.5 (2-11) % Eos % (Auto) 0.8 (0-4) % Baso % (Auto) 0.3 (0-2) % Lymph # (Auto) 3.0 (1.2-4.9) X10*3/uL [place] # (Auto) 0.4 (0.1-1.2) X10*3/uL Eos # (Auto) 0.1 (0.0-0.4) X10*3/uL Baso # (Auto) 0.0 (0.0-0.2) X10*3/uL Abs Immat Gran (auto) 0.03 (0.00-0.03) X10*3/uL Absolute Neuts (auto) 6.1 (2.0-8.3) x10*3/uL Absolute Nucleated RBC 0.000 (0.0-0.012) X10*3/uL Nucleated RBC % (auto) 0.0 (0.0-0.2) /100WBC Sodium 138 (135-145) mmol/L Potassium 4.4 (3.3-5.1) mmol/L Chloride 107 (96-108) mmol/L Carbon Dioxide 20 L (22-29) mmol/L Anion Gap 15 (12-20) BUN 15 (9-16) mg/dL Creatinine 0.79 (0.5-1.4) mg/dL Estim Creat Clear Calc 85.3 Estimated GFR > 60 Random Glucose 97 (60-115) mg/dL Lactic Acid (0.5-2.0) mmol/L Calcium 9.7 (8.4-10.2) mg/dL Magnesium 2.3 (1.6-2.6) mg/dL Total Bilirubin 0.5 (0.0-1.0) mg/dL AST 18 (5-31) U/L ALT 25 (0-31) U/L Alkaline Phosphatase 71 (39-117) U/L Total Protein 7.9 (6.5-8.0) g/dL Albumin 4.5 (3.5-5.0) g/dL Lipase 46 (8-78) U/L Stool Occult Blood (NEGATIVE) COVID-19 (MARKOS) Negative (Negative) COVID-19 Clin Com See Note 08/04/21 08/04/21 Range/Units 14:04 14:15 WBC (4.8-10.8) X10*3/uL RBC (4.20-5.50) X10*6/uL Hgb (12.0-16.0) g/dl Hct (37.0-47.0) % MCV (80.0-98.0) fL MCH (27.0-33.0) pg MCHC (31.0-35.0) g/dl RDW (11.0-16.0) % Plt Count (160-400) X10*3/uL MPV (9.4-12.3) fL Immature Gran % (Auto) (0.0-0.4) % Neut % (Auto) (45-73) % Lymph % (Auto) (20-40) % [place] % (Auto) (2-11) % Eos % (Auto) (0-4) % Baso % (Auto) (0-2) % Lymph # (Auto) (1.2-4.9) X10*3/uL [place] # (Auto) (0.1-1.2) X10*3/uL Eos # (Auto) (0.0-0.4) X10*3/uL Baso # (Auto) (0.0-0.2) X10*3/uL Abs Immat Gran (auto) (0.00-0.03) X10*3/uL Absolute Neuts (auto) (2.0-8.3) x10*3/uL Absolute Nucleated RBC (0.0-0.012) X10*3/uL Nucleated RBC % (auto) (0.0-0.2) /100WBC Sodium (135-145) mmol/L Potassium (3.3-5.1) mmol/L Chloride (96-108) mmol/L Carbon Dioxide (22-29) mmol/L Anion Gap (12-20) BUN (9-16) mg/dL Creatinine (0.5-1.4) mg/dL Estim Creat Clear Calc Estimated GFR Random Glucose (60-115) mg/dL Lactic Acid 2.7 H* (0.5-2.0) mmol/L Calcium (8.4-10.2) mg/dL Magnesium (1.6-2.6) mg/dL Total Bilirubin (0.0-1.0) mg/dL AST (5-31) U/L ALT (0-31) U/L Alkaline Phosphatase (39-117) U/L Total Protein (6.5-8.0) g/dL Albumin (3.5-5.0) g/dL Lipase (8-78) U/L Stool Occult Blood NEGATIVE (NEGATIVE) COVID-19 (MARKOS) (Negative) COVID-19 Clin Com Imaging Data CT scan - abdomen: Radiologist's impression: IMPRESSION: Hepatomegaly with fatty infiltration of the liver. ? 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 ? No evidence of obstructive uropathy. ? No definite evidence to suggest colitis.? Discharge Plan Discharge Clinical Impression: Bright red rectal bleeding, Chronic idiopathic constipation Patient Disposition: Home, Self-Care Additional Instructions: As we discussed your blood results were normal. The CT of your abdomen does not indicate a cause for your abdominal pain or rectal bleeding there is no colitis or diverticulitis. Your pain improved after receiving Toradol. While you were here you had a very small amount of clear mucus was bright red blood in it, there was not enough sample to send for stool studies. You should contact your GI provider to schedule a follow-up visit in 1-3 days as they may require further outpatient testing. Please return to the emergency department with any new or worsening concerns, if you develop fevers, chills, severe abdominal pain, nausea persistent vomiting, large amounts of bloody or watery diarrhea please return back to the emergency department. Prescriptions: No Action duloxetine 30 mg capsule,delayed release(DR/EC) 30 mg PO DAILY Qty: 90 1RF cyclobenzaprine 10 mg tablet 10 mg PO BEDTIME PRN (Reason: muscle spasm) 90 Days Qty: 90 1RF gabapentin 400 mg capsule 400 mg PO DAILY 90 Days Qty: 90 1RF trazodone 50 mg tablet 50 mg PO BEDTIME PRN (Reason: sleep) 90 Days Qty: 90 1RF diclofenac sodium [Voltaren] 1 % gel 2 g topical QID Qty: 100 3RF Rx Instructions: apply 2 gram twice daily as needed to bilateral knees linaclotide 145 mcg capsule 145 mcg PO DAILY 30 Days Qty: 30 3RF (DME) walker Misc See Rx Instructions .Route Qty: 1 0RF Rx Instructions: As directed (DME) Shower Chair Misc See Rx Instructions .Route Qty: 1 0RF Rx Instructions: As directed (DME) disposable gloves [Biobrane Gloves Medium] Misc See Rx Instructions .Route Qty: 200 11RF Rx Instructions: Use 1 pair of gloves as needed (DME) wipes See Rx Instructions .Route .MEDSUPPLY Qty: 200 11RF Rx Instructions: As directed (DME) underpads [Certainty Underpads] 30 X 36 pad See Rx Instructions .Route Qty: 40 11RF Rx Instructions: Use 1 underpad once a day hydrochlorothiazide 12.5 mg tablet 12.5 mg PO DAILY 90 Days Qty: 90 0RF metoprolol succinate 25 mg tablet extended release 24 hr 25 mg PO DAILY Qty: 30 6RF tramadol 50 mg tablet 50 mg PO DAILY PRN (Reason: Breakthrough Pain, Mild) Qty: 30 0RF dicyclomine 10 mg capsule 10 mg PO TID 0RF metoclopramide HCl [Reglan] 5 mg tablet 5 mg PO DAILY 30 Days Qty: 60 6RF Rx Instructions: 1-2 TABLETS BEFORE LARGEST MEAL IN THE EVENING ORALLY DAILY omeprazole 20 mg capsule,delayed release(DR/EC) 20 mg PO BID Qty: 30 6RF bisacodyl [Dulcolax (bisacodyl)] 5 mg tablet,delayed release (DR/EC) 10 mg PO BEDTIME 30 Days Qty: 60 6RF hydrocortisone [Proctosol HC] 2.5 % cream with perineal applicator 1 appl PA BID 30 Days Qty: 28.35 6RF docusate sodium [Colace] 100 mg capsule 100 mg PO .DAILY WITH FOOD 30 Days Qty: 30 6RF simethicone 180 mg capsule 180 mg PO QID 30 Days Qty: 120 3RF Rx Instructions: after meals
[2021-08-04 12:42] LABS: MANUAL DIFF FLAG NO
[2021-08-04 12:44] LABS: Basophils Percent Auto 0.3 % (0-2); Eosinophils Absolute Auto 0.1 X10*3/uL (0.0-0.4); Eosinophils Percent Auto 0.8 % (0-4); Hematocrit 44.1 % (37.0-47.0); Hemoglobin 14.3 g/dl (12.0-16.0); Imm Gran Abs Auto 0.03 X10*3/uL (0.00-0.03); Imm Gran Pct Auto 0.3 % (0.0-0.4); Lymphocytes Percent Auto 31.3 % (20-40); Mean Corpuscular HGB Conc 32.4 g/dl (31.0-35.0); Mean Corpuscular Volume 83.4 fL (80.0-98.0); Mean Platelet Volume 10.9 fL (9.4-12.3); Monocytes Absolute Auto 0.4 X10*3/uL (0.1-1.2); Monocytes Percent Auto 4.5 % (2-11); Neutrophils Absolute Auto 6.1 x10*3/uL (2.0-8.3); Neutrophils Percent Auto 62.8 % (45-73); Platelet Count 238 X10*3/uL (160-400); Red Blood Count 5.29 X10*6/uL (4.20-5.50); Red Cell Distribution Width 13.6 % (11.0-16.0); White Blood Count 9.7 X10*3/uL (4.8-10.8)
[2021-08-04 13:02] LABS: Alanine Aminotransferase 25 U/L (0-31); Albumin Level 4.5 g/dL (3.5-5.0); Alkaline Phosphatase 71 U/L (39-117); Anion Gap 15 (12-20); Aspartate Amino Transferase 18 U/L (5-31); Bilirubin Total 0.5 mg/dL (0.0-1.0); Blood Urea Nitrogen 15 mg/dL (9-16); Calcium 9.7 mg/dL (8.4-10.2); Carbon Dioxide 20 mmol/L (22-29); Chloride 107 mmol/L (96-108); Creatinine Clr Calc Pharmacy 85.3; Estimated Glomerular Filt Rate > 60; Glucose Random 97 mg/dL (60-115); Lipase 46 U/L (8-78); Magnesium 2.3 mg/dL (1.6-2.6); Potassium 4.4 mmol/L (3.3-5.1); Sodium 138 mmol/L (135-145); Total Protein 7.9 g/dL (6.5-8.0)
[2021-08-04] MEDS: Ketorolac Tromethamine 30 MG/ML VIAL IVPUSH (13:33)
[2021-08-04] MEDS: ondansetron HCL 4 MG/2 ML VIAL IVPUSH (13:36)
[2021-08-04] MEDS: 0.9 % Sodium Chloride 1,000 ML 999 ML IV ×3 (13:40→19:55)
[2021-08-04 13:44] LABS: COVID-19 Test Negative (Negative)
[2021-08-04 14:12] VITALS: BP 153/91; PULSE 75; RESP 16; O2SAT 100
[2021-08-04 14:26] LABS: Lactic Acid 2.7 mmol/L (0.5-2.0)
[2021-08-04 14:30] LABS: OBS Int Ctl Valid YES; OBS1 NEGATIVE (NEGATIVE)
[2021-08-04] MEDS: iohexoL 350 MG/ML 100 ML INFUS..BTL IV (14:51)
[2021-08-04 16:09] LABS: Reflex Lactate? Lactic Acid Added
[2021-08-04 16:41] LABS: Appearance Urine CLEAR; Color Urine STRAW; Glucose Urine UA NEG (NEG); Leukocyte Esterase Urine NEG (NEG); Nitrite Urine NEG (NEG); PH 6.5 (5.0-8.0); Specific Gravity - Urine <= 1.005 (1.005-1.025); Urine Blood NEG (NEG); Urine Ketones NEG (NEG); Urine Protein NEG (NEG-TRACE)
[2021-08-04 16:43] LABS: OBS1 POSITIVE (NEGATIVE)
[2021-08-04 16:44] LABS: OBS Int Ctl Valid YES
[2021-08-04 17:27] LABS: Lactic Acid 3.1 mmol/L (0.5-2.0)
[2021-08-04 19:03] LABS: Reflex Lactate? Lactic Acid Added
[2021-08-04 19:56] VITALS: BP 129/84; PULSE 76; RESP 16; TEMP 36.6; O2SAT 97
[2021-08-04 20:54] LABS: ~Lactic Acid-LAB USE ONLY 0.8 mmol/L (0.5-2.0)
== END 2021-08-04 21:14 | disposition home or self-care (01) ==
PROVIDERS: Nurse Practitioner Family; Physician Assistant; Emergency Provider Emergency Medicine; PCP Internal Medicine
DX: K59.04 Chronic idiopathic constipation (principal); K62.5 Hemorrhage of anus and rectum; R10.9 Unspecified abdominal pain; Z20.822 Contact with and (suspected) exposure to COVID-19; I10 Essential (primary) hypertension
CPT/HCPCS: 36415; 71045; 74177; 80053; 81003; 82272; 83605; 83690; 83735; 85025; 87635; 96361; 96374; 96375; 99284; 99285; J1885; J2405; Q9967

== ENCOUNTER → 2021-08-11 09:32 | Outpatient (BNVA) | payer OTHER, SELFPAY | PROVIDERS: PCP Internal Medicine; Visit Provider Nurse Practitioner | DX: K59.04 Chronic idiopathic constipation (principal); K31.84 Gastroparesis; K21.9 Gastro-esophageal reflux disease without esophagitis; K64.9 Unspecified hemorrhoids; K57.92 Diverticulitis of intestine, part unspecified, without perforation or abscess without bleeding; R19.7 Diarrhea, unspecified | CPT/HCPCS: 99212 ==

== ENCOUNTER → 2021-09-02 12:38 | Outpatient (BNVA) | payer OTHER, SELFPAY | PROVIDERS: PCP Internal Medicine; Referring Provider Internal Medicine; Visit Provider Nurse Practitioner | DX: K59.04 Chronic idiopathic constipation (principal); K57.92 Diverticulitis of intestine, part unspecified, without perforation or abscess without bleeding; K21.9 Gastro-esophageal reflux disease without esophagitis; K31.84 Gastroparesis; K64.9 Unspecified hemorrhoids; Z79.899 Other long term (current) drug therapy | CPT/HCPCS: 99212 ==

== ENCOUNTER 2021-10-13 16:04 | Outpatient (REF) | payer OTHER, SELFPAY ==
--- NOTE | ~2021-10-13 | MM_ITS ---
EXAMINATION: MM SCREENING DIGITAL BREAST TOMOSYNTHESIS, BILATERAL CLINICAL INFORMATION: Screening. Asymptomatic. The lifetime risk of breast cancer based on the Tyrer-Cuzick Model is 10.6%. COMPARISON: Mammography: August 13, 2020 and studies dating back to January 28, 2018 TECHNIQUE: Digital breast tomosynthesis is performed in both the craniocaudal and mediolateral oblique views along with computer-aided detection (CAD). Synthesized 2D images are generated from the tomosynthesis. FINDINGS: There are scattered areas of fibroglandular density (ACR BI-RADS breast composition Category b). There are no significant masses, abnormal calcifications, or other abnormalities. MM/MM tomosynthesis screening BI IMPRESSION: There are no significant changes from prior study. ASSESSMENT: BI-RADS 1: Negative RECOMMENDATION: Routine annual mammography screening. This patient's information was entered into a reminder system with a target due date for their next mammogram.
== END 2021-10-13 16:05 | disposition home or self-care (01) ==
LOC: HO.MAMMO 16:04
PROVIDERS: PCP Internal Medicine; Visit Provider Internal Medicine
DX: Z12.31 Encounter for screening mammogram for malignant neoplasm of breast (principal)
CPT/HCPCS: 77063; 77067

== ENCOUNTER → 2021-11-18 16:03 | Outpatient (BNVA) | payer OTHER, SELFPAY | PROVIDERS: PCP Internal Medicine; Visit Provider Nurse Practitioner | DX: K59.04 Chronic idiopathic constipation (principal); K21.9 Gastro-esophageal reflux disease without esophagitis; K31.84 Gastroparesis; K64.9 Unspecified hemorrhoids; K75.81 Nonalcoholic steatohepatitis (NASH); Z79.899 Other long term (current) drug therapy | CPT/HCPCS: 99212 ==

== ENCOUNTER 2021-11-30 07:56 | Outpatient (REF) | payer OTHER, SELFPAY ==
--- NOTE | ~2021-11-30 | US_ITS ---
EXAMINATION: US RETROPERITONEAL LIMITED (RENAL ONLY) CLINICAL INFORMATION: Calculus of kidney with calculus of ureter. COMPARISON: CT abdomen and pelvis 08/04/2021. Renal ultrasound 12/30/2020. Ultrasound abdomen 12/24/2019. X-ray abdomen KUB 12/11/2018. TECHNIQUE: Real-time imaging of the kidneys. FINDINGS: RIGHT KIDNEY: 10.8 x 5.5 x 5.0 cm (SAG x AP x TRV). The kidney is normal in size, contour, and echogenicity. Renal cortical thickness is normal. No calculi or focal parenchymal lesions. No hydronephrosis. There is an extrarenal kidney pelvis. LEFT KIDNEY: 11.0 x 5.1 x 4.9 cm (SAG x AP x TRV). The kidney is normal in size, contour, and echogenicity. Renal cortical thickness is normal. No renal calculi or hydronephrosis. There is an echogenic lesion in lower pole measuring 2.4 x 2.0 x 1.7 cm. US/US renal BI IMPRESSION: Echogenic 2.4 cm lesion lower pole left kidney. Likely extra renal angiomyolipoma. It was visualized on previous CT 08/04/2021 and 12/16/2018. It is benign. Extrarenal right kidney pelvis.
[2021-11-30 09:42] LABS: Alanine Aminotransferase 29 U/L (0-31); Albumin Level 4.6 g/dL (3.5-5.0); Alkaline Phosphatase 65 U/L (39-117); Anion Gap 10 (12-20); Aspartate Amino Transferase 16 U/L (5-31); Bilirubin Direct < 0.2 mg/dL (0.0-0.5); Bilirubin Total 0.3 mg/dL (0.0-1.0); Blood Urea Nitrogen 16 mg/dL (9-16); Calcium 9.8 mg/dL (8.4-10.2); Carbon Dioxide 29 mmol/L (22-29); Chloride 105 mmol/L (96-108); Cholesterol 250 mg/dL; Estimated Glomerular Filt Rate > 60; Glucose Fasting 126 mg/dL (60-99); HDL Cholesterol 51 mg/dL; LDL Cholesterol Calculated 178 mg/dl; Potassium 4.1 mmol/L (3.3-5.1); Sodium 140 mmol/L (135-145); Total Protein 7.8 g/dL (6.5-8.0); Triglycerides 107 mg/dL
[2021-11-30 10:03] LABS: Vitamin D 25-OH Total 30.1 ng/mL (>30)
[2021-12-02 12:25] LABS: Alpha Fetoprotein 4.5 ng/mL
== END 2021-11-30 07:57 | disposition home or self-care (01) ==
LOC: HO.US 07:56
PROVIDERS: Nurse Practitioner; Absent Provider Internal Medicine; PCP Internal Medicine
DX: N20.2 Calculus of kidney with calculus of ureter (principal); K75.81 Nonalcoholic steatohepatitis (NASH); E55.9 Vitamin D deficiency, unspecified; E78.5 Hyperlipidemia, unspecified; I10 Essential (primary) hypertension
CPT/HCPCS: 36415; 76775; 80053; 80061; 80076; 82105; 82248; 82306

== ENCOUNTER → 2021-12-16 14:49 | Outpatient (BNVA) | payer OTHER, SELFPAY | PROVIDERS: PCP Internal Medicine | DX: R32 Unspecified urinary incontinence (principal); D17.71 Benign lipomatous neoplasm of kidney | CPT/HCPCS: 51798; 99212 ==

== ENCOUNTER 2022-01-23 08:48 | Outpatient (REF) | payer OTHER, SELFPAY ==
--- NOTE | ~2022-01-23 | US_ITS ---
EXAMINATION: US ABDOMEN LIMITED CLINICAL INFORMATION: Nonalcoholic steatohepatitis. COMPARISON: Renal ultrasound 11/30/2021. CT abdomen and pelvis 08/04/2021. Ultrasound abdomen 12/24/2019. TECHNIQUE: Real-imaging of the right upper quadrant abdominal viscera. FINDINGS: PANCREAS: Normal. LIVER: The liver is enlarged with increased echogenicity. The liver contour is normal. No focal hepatic lesion. There is no intrahepatic biliary duct dilatation seen. GALLBLADDER: Normal. The gallbladder is physiologically distended without evidence of stones, sludge, polyps, wall thickening or pericholecystic fluid. COMMON BILE DUCT: Normal in caliber measuring 0.7 cm in diameter. RIGHT KIDNEY: There is mild pelvic fullness but no hydronephrosis. No renal calculi or focal parenchymal lesions. The kidney measures 11.0 cm in maximum dimension. FREE FLUID: None. US/US abdomen limited IMPRESSION: Mild hepatomegaly with increased liver echogenicity with no focal lesion seen. Mild pelvic fullness right kidney.
== END 2022-01-23 08:49 | disposition home or self-care (01) ==
LOC: HO.US 08:48
PROVIDERS: Visit Provider Nurse Practitioner
DX: K75.81 Nonalcoholic steatohepatitis (NASH) (principal)
CPT/HCPCS: 76705

== ENCOUNTER → 2022-03-08 12:33 | Outpatient (BNVA) | payer OTHER, SELFPAY | PROVIDERS: PCP Internal Medicine; Visit Provider Nurse Practitioner | DX: K21.9 Gastro-esophageal reflux disease without esophagitis (principal); K31.84 Gastroparesis; K59.04 Chronic idiopathic constipation; K64.9 Unspecified hemorrhoids; K75.81 Nonalcoholic steatohepatitis (NASH); R10.9 Unspecified abdominal pain | CPT/HCPCS: 99212 ==

== ENCOUNTER 2022-05-23 13:01 | Outpatient (REF) | payer OTHER, SELFPAY ==
--- NOTE | ~2022-05-23 | US_ITS ---
EXAMINATION: US RETROPERITONEAL LIMITED (RENAL ONLY) CLINICAL INFORMATION: Benign lipomatous neoplasm of kidney. COMPARISON: Ultrasound abdomen complete 01/23/2022. Ultrasound retroperitoneal limited (renal only) 11/30/2021. CT abdomen and pelvis with contrast 08/04/2021. TECHNIQUE: Real-time imaging of the kidneys. FINDINGS: RIGHT KIDNEY: 10.2 x 4.2 x 5.7 cm (SAG x AP x TRV). The kidney is normal in size, contour, and echogenicity. Renal cortical thickness is normal. No calculi or focal parenchymal lesions. No hydronephrosis. LEFT KIDNEY: 10.5 x 5.1 x 5.4 cm (SAG x AP x TRV). The kidney is normal in size, contour, and echogenicity. Renal cortical thickness is normal. No renal calculi or hydronephrosis. A 2.1 x 2.3 x 2.1 cm echogenic avascular renal mass, previously measured 2.4 x 2.0 x 1.7 cm, possibly slightly increased in one dimension. Partially imaged liver appears echogenic suggesting underlying liver disease similar to prior. US/US renal BI IMPRESSION: A 2.3 cm echogenic avascular left renal mass, possibly slightly increased in size from prior in one dimension, compatible with an angiomyolipoma better characterized on prior CT. Partially imaged liver appears echogenic suggesting underlying liver disease similar to prior.
== END 2022-05-23 13:02 | disposition home or self-care (01) ==
LOC: HO.US 13:01
PROVIDERS: PCP Internal Medicine
DX: D17.71 Benign lipomatous neoplasm of kidney (principal)
CPT/HCPCS: 76775

== ENCOUNTER 2022-05-29 07:13 | Outpatient (REF) | payer OTHER, SELFPAY ==
[2022-05-29 07:19] LABS: MANUAL DIFF FLAG NO
[2022-05-29 08:01] LABS: Basophils Percent Auto 0.5 % (0-2); Eosinophils Absolute Auto 0.1 X10*3/uL (0.0-0.4); Eosinophils Percent Auto 1.3 % (0-4); Hematocrit 42.4 % (37.0-47.0); Hemoglobin 13.7 g/dl (12.0-16.0); Imm Gran Abs Auto 0.03 X10*3/uL (0.00-0.03); Imm Gran Pct Auto 0.4 % (0.0-0.4); Lymphocytes Percent Auto 48.6 % (20-40); Mean Corpuscular HGB Conc 32.3 g/dl (31.0-35.0); Mean Corpuscular Hemoglobin 27.3 pg (27.0-33.0); Mean Corpuscular Volume 84.5 fL (80.0-98.0); Mean Platelet Volume 10.9 fL (9.4-12.3); Monocytes Absolute Auto 0.5 X10*3/uL (0.1-1.2); Neutrophils Absolute Auto 3.6 x10*3/uL (2.0-8.3); Neutrophils Percent Auto 43.2 % (45-73); Platelet Count 340 X10*3/uL (160-400); Red Blood Count 5.02 X10*6/uL (4.20-5.50); Red Cell Distribution Width 14.2 % (11.0-16.0); White Blood Count 8.2 X10*3/uL (4.8-10.8)
[2022-05-29 09:02] LABS: Cholesterol 239 mg/dL; HDL Cholesterol 46 mg/dL; LDL Cholesterol Calculated 165 mg/dl; Triglycerides 141 mg/dL; Vitamin D 25-OH Total 23.6 ng/mL (>30)
== END 2022-05-29 07:14 | disposition home or self-care (01) ==
LOC: HO.LAB 07:13
PROVIDERS: PCP Internal Medicine; Visit Provider Internal Medicine
DX: E78.5 Hyperlipidemia, unspecified (principal); D64.9 Anemia, unspecified; E55.9 Vitamin D deficiency, unspecified
CPT/HCPCS: 36415; 80061; 82306; 85025

== ENCOUNTER → 2022-06-20 09:38 | Outpatient (BNVA) | payer OTHER, SELFPAY | PROVIDERS: PCP Internal Medicine; Visit Provider Nurse Practitioner Family | DX: R32 Unspecified urinary incontinence (principal); D17.71 Benign lipomatous neoplasm of kidney | CPT/HCPCS: 51798; 99212 ==

== ENCOUNTER 2022-07-24 10:12 | Outpatient (REF) | payer OTHER, SELFPAY ==
--- NOTE | ~2022-07-24 | CT_ITS ---
EXAMINATION: CT ABDOMEN WITHOUT CONTRAST CLINICAL INFORMATION: Other specified disorders of kidney and ureter COMPARISON: Previous CT of the abdomen and pelvis July 2021, renal ultrasound May 2022 TECHNIQUE: Contiguous axial thin section helical images of the abdomen were performed without contrast. The data set was reformatted in the coronal and sagittal planes and reviewed on an independent workstation. This CT examination was performed using dose optimization techniques as appropriate, variously including the following: *Automated exposure control *Adjustment of mA and/or kV according to patient size (this includes techniques or standardized protocols for targeted exams where dose is matched to indication/reason for exam; i.e. extremities or head) *Use of iterative reconstruction technique DLP: 460 mGy-cm FINDINGS: LUNG BASES: Normal LIVER, GALLBLADDER, BILIARY TREE: Enlarged fatty liver with fatty infiltration. Normal gallbladder. No biliary duct dilatation. PANCREAS: Normal SPLEEN: Normal ADRENAL GLANDS AND KIDNEYS: Normal adrenal glands. Stable 2 cm fatty lesion exophytic to the lower pole of the left kidney suggestive angiomyolipoma. BOWEL LOOPS: Normal. Small umbilical hernia containing fat. LYMPH NODES: Normal. VASCULAR: Unremarkable. BONES: Degenerative changes of the spine. CT/CT abdomen wo IV con IMPRESSION: Stable 2 cm fatty lesion exophytic to the lower pole of the left kidney suggestive of a benign angiomyolipoma. Enlarged fatty liver. Fleischner guidelines were followed.
== END 2022-07-24 10:13 | disposition home or self-care (01) ==
LOC: HO.CT 10:12
PROVIDERS: PCP Internal Medicine; Visit Provider Internal Medicine
DX: N28.89 Other specified disorders of kidney and ureter (principal)
CPT/HCPCS: 74150

== ENCOUNTER → 2022-09-01 14:06 | Outpatient (BNVA) | payer OTHER, SELFPAY | PROVIDERS: PCP Internal Medicine; Visit Provider Nurse Practitioner | DX: K31.84 Gastroparesis (principal); K21.9 Gastro-esophageal reflux disease without esophagitis; K75.81 Nonalcoholic steatohepatitis (NASH); K59.04 Chronic idiopathic constipation; R10.9 Unspecified abdominal pain; R73.01 Impaired fasting glucose | CPT/HCPCS: 99212 ==

== ENCOUNTER 2022-09-01 14:58 | Outpatient (REF) | payer OTHER, SELFPAY | END 2022-09-01 14:59 | disposition home or self-care (01) | LOC: HO.LAB 14:58 | PROVIDERS: Visit Provider Nurse Practitioner | DX: Z13.89 Encounter for screening for other disorder (principal) ==

== ENCOUNTER 2022-10-02 09:18 | Outpatient (REF) | payer OTHER, SELFPAY ==
[2022-10-02 09:42] LABS: MANUAL DIFF FLAG NO
[2022-10-02 09:58] LABS: Basophils Absolute Auto 0.1 X10*3/uL (0.0-0.2); Basophils Percent Auto 0.6 % (0-2); Eosinophils Absolute Auto 0.1 X10*3/uL (0.0-0.4); Eosinophils Percent Auto 1.7 % (0-4); Hematocrit 42.7 % (37.0-47.0); Hemoglobin 13.8 g/dl (12.0-16.0); Imm Gran Abs Auto 0.03 X10*3/uL (0.00-0.03); Imm Gran Pct Auto 0.4 % (0.0-0.4); Lymphocytes Absolute Auto 3.9 X10*3/uL (1.2-4.9); Lymphocytes Percent Auto 48.4 % (20-40); Mean Corpuscular HGB Conc 32.3 g/dl (31.0-35.0); Mean Corpuscular Hemoglobin 27.3 pg (27.0-33.0); Mean Corpuscular Volume 84.4 fL (80.0-98.0); Mean Platelet Volume 10.6 fL (9.4-12.3); Monocytes Absolute Auto 0.5 X10*3/uL (0.1-1.2); Monocytes Percent Auto 5.6 % (2-11); Neutrophils Absolute Auto 3.5 x10*3/uL (2.0-8.3); Neutrophils Percent Auto 43.3 % (45-73); Platelet Count 338 X10*3/uL (160-400); Red Blood Count 5.06 X10*6/uL (4.20-5.50); Red Cell Distribution Width 14.6 % (11.0-16.0)
[2022-10-02 10:43] LABS: Glucose Fasting 123 mg/dL (60-99)
[2022-10-02 11:04] LABS: Alanine Aminotransferase 37 U/L (0-31); Albumin Level 4.6 g/dL (3.5-5.0); Alkaline Phosphatase 66 U/L (39-117); Anion Gap 11 (12-20); Aspartate Amino Transferase 15 U/L (5-31); Bilirubin Total 0.6 mg/dL (0.0-1.0); Blood Urea Nitrogen 15 mg/dL (9-16); Calcium 9.7 mg/dL (8.4-10.2); Carbon Dioxide 28 mmol/L (22-29); Chloride 106 mmol/L (96-108); Estimated Glomerular Filt Rate > 60; Glucose Random 125 mg/dL (60-115); Potassium 4.2 mmol/L (3.3-5.1); Sodium 141 mmol/L (135-145); Total Protein 7.6 g/dL (6.5-8.0)
[2022-10-02 12:21] LABS: Glucose 1 Hour 239 mg/dL
[2022-10-02 13:09] LABS: Glucose 2 Hour 222 mg/dL
[2022-10-02 14:18] LABS: Glucose 3 Hour 156 mg/dL
[2022-10-03 13:08] LABS: Alpha Fetoprotein 5.2 ng/mL
== END 2022-10-02 09:19 | disposition home or self-care (01) ==
LOC: HO.LAB 09:18
PROVIDERS: PCP Internal Medicine; Visit Provider Nurse Practitioner
DX: K75.81 Nonalcoholic steatohepatitis (NASH) (principal); K59.04 Chronic idiopathic constipation; L65.9 Nonscarring hair loss, unspecified; R73.01 Impaired fasting glucose
CPT/HCPCS: 36415; 80053; 82105; 82951; 84443; 85025

== ENCOUNTER → 2022-10-24 15:54 | Outpatient (BNVA) | payer OTHER, SELFPAY | PROVIDERS: PCP Internal Medicine; Visit Provider Nurse Practitioner | DX: E11.9 Type 2 diabetes mellitus without complications (principal); K31.84 Gastroparesis; K75.81 Nonalcoholic steatohepatitis (NASH); K21.9 Gastro-esophageal reflux disease without esophagitis; K59.04 Chronic idiopathic constipation | CPT/HCPCS: 99212 ==

== ENCOUNTER 2022-10-27 09:10 | Outpatient (REF) | payer OTHER, SELFPAY ==
[2022-10-27 09:53] LABS: Estimated Average Glucose 143 mg/dL; Hemoglobin A1c % 6.6 %
== END 2022-10-27 09:11 | disposition home or self-care (01) ==
LOC: HO.LAB 09:10
PROVIDERS: Absent Provider Internal Medicine; PCP Internal Medicine; Visit Provider Nurse Practitioner
DX: M79.7 Fibromyalgia (principal); M47.816 Spondylosis without myelopathy or radiculopathy, lumbar region; M51.36 Other intervertebral disc degeneration, lumbar region; E11.9 Type 2 diabetes mellitus without complications
CPT/HCPCS: 36415; 83036; 99212

== ENCOUNTER 2022-10-30 13:48 | Outpatient (REF) | payer OTHER, SELFPAY ==
--- NOTE | ~2022-10-30 | MM_ITS ---
EXAMINATION: MM SCREENING DIGITAL BREAST TOMOSYNTHESIS, BILATERAL CLINICAL INFORMATION: Screening. Asymptomatic. The lifetime risk of breast cancer based on the Tyrer-Cuzick Model is 12%. COMPARISON: Mammography: 10/13/2021, 08/13/2020, 08/06/2019, 10/08/2018, 01/28/2018 TECHNIQUE: Digital breast tomosynthesis is performed in both the craniocaudal and mediolateral oblique views along with computer-aided detection (CAD). Synthesized 2D images are generated from the tomosynthesis. FINDINGS: There are scattered areas of fibroglandular density (ACR BI-RADS breast composition Category b). Parenchymal pattern is similar to prior exams. No developing density or architectural abnormality. There are no significant masses, abnormal calcifications, or other abnormalities. There is a dermal lesion again overlying the mid 6:00 left breast. There are 3 biopsy clip markers again noted left breast. The axilla are unremarkable. No significant changes. MM/MM tomosynthesis screening BI IMPRESSION: No mammographic evidence of malignancy. ASSESSMENT: BI-RADS 2: Benign RECOMMENDATION: Routine annual mammography screening. This patient's information was entered into a reminder system with a target due date for their next mammogram.
== END 2022-10-30 13:49 | disposition home or self-care (01) ==
LOC: HO.MAMMO 13:48
PROVIDERS: Visit Provider Internal Medicine
DX: Z12.31 Encounter for screening mammogram for malignant neoplasm of breast (principal)
CPT/HCPCS: 77063; 77067

== ENCOUNTER → 2022-11-09 13:28 | Outpatient (BNVA) | payer OTHER, SELFPAY | PROVIDERS: PCP Internal Medicine; Visit Provider Nurse Practitioner Family | DX: R39.15 Urgency of urination (principal); R33.9 Retention of urine, unspecified; R32 Unspecified urinary incontinence | CPT/HCPCS: 51798; 99212 ==

== ENCOUNTER 2022-12-20 14:33 | Outpatient (AMB) | payer OTHER, SELFPAY ==
--- NOTE | 2022-12-20 14:38 | A.OFFVIS_ITS ---
Intake Vital Signs 12/20/22 14:49 Height 5 ft 6 in Weight 183 lb BMI 29.5 BP 126/60 Blood Pressure Location Lt brachial Position Sitting Pulse 86 Intake Visit Reasons: Follow up 6 Weeks Intake Note: Patient follow up Patient denies any GI issues or concern. Fashion Artist Required: Yes Fashion Artist Name: [facility] Accompanied by: Self / Same As Patient Allergies No Known Allergies Allergy (Verified 12/20/22 14:48) HPI Follow up 6 Weeks HPI Details Assessment & Plan (1) Diabetes: ?Comment: DX via abnormal 3 hour glucose tolerance test ?Code(s): E11.9 - Type 2 diabetes mellitus without complications ?Plan: INDONESIAN #Chitra [id number] Thankfully, she is feeling better with the increased reglan to 10 mg 4 times a day.? This is better controlled her nausea and vomiting.? Her 3 hr GGT test does show diabetes, which explains many things including her worsening paresis, and HILTON. I am referring her to a dietitian/educator first and will get an A1C to get a better idea of her overall control.? I educate her that she will need to discuss medications with her primary care provider if she cannot sufficiently control her glucose via diet and exercise.? I also explained to her that diabetes affects many aspects of her general health including but not limited to diabetic gastroparesis and her fatty liver syndrome. SHe is moving her bowels well on LInzess 145mcg and bisacodyl.? She continues on omeprazole 40 mg once a day with famotidine at bedtime, and has simethicone for gas trapping and bloating.? She utilizes dicyclomine for occasional cramping. ROV 6 weeks. (2) HILTON (nonalcoholic steatohepatitis): ?Comment: BASELINE LABS; 12/2018 alpha fetoprotein 2.5, ultrasound shows fatty replacement with no tumor, negative hepatitis a B and C screen, AST/ALT 17/43 with the rest the liver panel normal, TSH normal, negative autoimmune workup, ferritin 403. CURRENT LABS .10/03/2303/ ?[id number]:[id number]:36 WBC 8.0 Hgb 13.8 Hct 42.7 Plt Count 338 Estimated GFR > 60 Total Bilirubin 0.6 AST 15 ALT 37 H Alkaline Phosphatase 66 Alpha Fetoprotein 5.[address] ABD AND PELVIS? 07/27/22 FINDINGS: LUNG BASES: Normal? LIVER, GALLBLADDER, BILIARY TREE: Enlarged fatty liver with fatty infiltration. Normal gallbladder. No biliary duct dilatation.? PANCREAS: Normal? SPLEEN: Normal? ADRENAL GLANDS AND KIDNEYS: Normal adrenal glands. Stable 2 cm fatty lesion exophytic to the lower pole of the left kidney suggestive angiomyolipoma.? BOWEL LOOPS: Normal. Small umbilical hernia containing fat. LYMPH NODES: Normal. VASCULAR: Unremarkable. BONES: Degenerative changes of the spine.? CT/CT abdomen wo IV con IMPRESSION: Stable 2 cm fatty lesion exophytic to the lower pole of the left kidney suggestive of a benign angiomyolipoma. Enlarged fatty liver. ?Code(s): K75.81 - Nonalcoholic steatohepatitis (HILTON) (3) Gastroparesis: ?Code(s): K31.84 - Gastroparesis (4) GERD (gastroesophageal reflux disease): ?Code(s): K21.9 - Gastro-esophageal reflux disease without esophagitis ?Qualifiers: ?Esophagitis presence:?esophagitis presence not specified? Qualified Code(s):?K21.9 - Gastro-esophageal reflux disease without esophagitis (5) Chronic idiopathic constipation: ?Code(s): K59.04 - Chronic idiopathic constipation ? ? ? Orders: Orders Hemoglobin A1c 10/24/22 E11.9 - Type 2 huyen betes mellitus wit hout complications ? Referrals Diabetes Education Referral ? E11.9 - Type 2 huyen betes mellitus wit hout complications ? Medications: New linaclotid(Linzess ) 145 mcg? PO QAM 30 caps 6RF K59.04 - Chronic i diopathic constipa tion ? LABS: Laboratory Tests 10/02/22 10/27/22 09:36 09:26 Plt Count 338 Hemoglobin A1c % 6.6 TODAY'S VISIT INDONESIAN #Vandana Live I reviewed the results of her tests and with an A1c of 6.6 she is likely prediabetic.. She could also have out right diabetes which could explain why she has the delayed gastric emptying but she sort of in a pollack zone. The good news is that she is feeling extremely well since we increase the Reglan and got her bowels moving. At this point she is very happy with her GI regimen and feels that she is stable. She continues on omeprazole in the morning and famotidine at night, Reglan 10 mg 4 times a day, Linzess and bisacodyl, dicyclomine and simethicone. Return office visit in 6 months. [facility] Medical History Androgenic alopecia Angiomyolipoma of kidney Disc degeneration, lumbar Dyspepsia Essential hypertension Fibromyalgia Hair loss Headache Knee osteoarthritis Normal colonoscopy Osteoarthritis Physical exam Physical exam Polyarthralgia Retention of urine Skin change Skin lesion Spondylosis of lumbar spine Tachycardia Urinary incontinence Vomiting and diarrhea Surgical History History of breast biopsy (~2005) History of esophagogastroduodenoscopy (EGD) (~2017) History of hysterectomy Hx of colonoscopy (~2010) Tubal ligation status Family History Father No problems noted. Mother Pulmonary hypertension CVD (cardiovascular disease) HTN (hypertension) Maternal Aunt Breast cancer Maternal Aunt Breast cancer Paternal Aunt Lymphoma Paternal Uncle Gastric cancer Other Cancer Diabetes Urinary incontinence Social History Household Members: Family Housing: Apartment Alcohol intake: never Patient Tobacco Use Status: Never used Tobacco e-Cigarette/Vaping Use: Never Used Second Hand Smoke Exposure: No service: No Current occupational status: unemployed Cognitive needs: Yes Hearing needs: No Vision needs: Yes Review of Systems Const Denies fatigue, Denies fever(s), Denies night sweats, Denies poor appetite and Denies weight loss ENT Reports Normal hearing present, Denies dysphagia, Denies odynophagia, Denies throat swelling and Denies tongue swelling Card Reports no additional complaints Resp Reports no additional complaints GI Denies abdominal pain, Denies melena, Reports bloating, Denies hematochezia, Reports constipation, Denies GI cramping, Denies dysphagia, Denies excessive flatus, Reports early satiety, Reports heartburn, Denies diarrhea, Reports nausea, Denies odynophagia, Denies vomiting and Denies hematemesis Musc Reports back pain and Reports myalgias Skin/Breast Denies pruritus, Denies lesions, Denies rash and Denies jaundice Neuro Reports Normal hearing present and Denies Abnormal speech present Endo Denies fatigue Aller/Immun Denies throat swelling and Denies tongue swelling Physical Exam Vital Signs: Last Vital Signs Pulse 86 12/20/22 14:49 BP 126/60 12/20/22 14:49 BMI result Body Mass Index 29.5 Const General: cooperative, no acute distress, well developed and well groomed Nutritional Appearance: well nourished and overweight Orientation/consciousness: oriented to person, oriented to place and oriented to time Limitations: language barrier and ambulation with cane HEENT Head: Yes normocephalic and Yes atraumatic Eyes General: appearance normal, both eyes and all related structures Pupils: Equal, round and reactive pupils present Neck Neck: Yes normal visual inspection and Yes no lymphadenopathy Thyroid: Thyroid normal Resp Effort & Inspection: normal respiratory effort and able to speak in complete sentences Auscultation: clear to auscultation bilaterally Cardio Rate: regular rate Rhythm: regular rhythm Heart sounds: Normal, physiologic split S2 sound present Peripheral pulses: radial pulses present and posterior tibial pulses present GI Inspection: No distended, No Abdominal panniculus present and Yes obesity Palpation (GI): Soft to palpation, nontender, no guarding, not rigid and No hepatosplenomegaly present Percussion: Yes normal to percussion Auscultation: normal bowel sounds Rectal Exam - Female: deferred Skin General skin exam: no rashes or lesions noted, turgor normal, skin not dry, no jaundice, No spider nevi and no striae Rashes: no rashes Nails: normal Neuro General: oriented to person, oriented to place and oriented to time Cranial nerves: Yes Equal, round and reactive pupils present and Yes Normal hearing present Speech: No Abnormal speech present Extrem General: Yes normal to inspection, No clubbing, No cyanosis and No edema Psych Appearance: grossly normal and well kempt Mental Status: mental status grossly normal Speech and movement: Normal speech and movement present Affect: normal affect Attitude: cooperative Thought process: Normal thought process present and not confabulating Thought content: Normal thought content present Insight: Limited insight present (Psych) Judgement: Limited judgement present (Psych) Assessment & Plan Assessment & Plan (1) Gastroparesis: Code(s): K31.84 - Gastroparesis Plan: INDONESIAN #Vandana Live I reviewed the results of her tests and with an A1c of 6.6 she is likely prediabetic.. She could also have out right diabetes which could explain why she has the delayed gastric emptying but she sort of in a pollack zone. The good news is that she is feeling extremely well since we increase the Reglan and got her bowels moving. At this point she is very happy with her GI regimen and feels that she is stable. She continues on omeprazole in the morning and famotidine at night, Reglan 10 mg 4 times a day, Linzess and bisacodyl, dicyclomine and simethicone. I think will wait until the next 6 month interval to check her liver enzymes and do an ultrasound for her HILTON. To Return office visit in 6 months. (2) GERD (gastroesophageal reflux disease): Code(s): K21.9 - Gastro-esophageal reflux disease without esophagitis Qualifiers: Esophagitis presence: esophagitis presence not specified Qualified Code(s): K21.9 - Gastro-esophageal reflux disease without esophagitis (3) Chronic idiopathic constipation: Code(s): K59.04 - Chronic idiopathic constipation (4) HILTON (nonalcoholic steatohepatitis): Comment: BASELINE LABS; 12/2018 alpha fetoprotein 2.5, ultrasound shows fatty replacement with no tumor, negative hepatitis a B and C screen, AST/ALT 17/43 with the rest the liver panel normal, TSH normal, negative autoimmune workup, ferritin 403. CURRENT LABS .10/03/2303/ 09:3609:[id number] WBC 8.0 Hgb 13.8 Hct 42.7 Plt Count 338 Estimated GFR > 60 Total Bilirubin 0.6 AST 15 ALT 37 H Alkaline Phosphatase 66 Alpha Fetoprotein 5.[address] ABD AND PELVIS 07/27/22 FINDINGS: LUNG BASES: Normal? LIVER, GALLBLADDER, BILIARY TREE: Enlarged fatty liver with fatty infiltration. Normal gallbladder. No biliary duct dilatation.? PANCREAS: Normal? SPLEEN: Normal? ADRENAL GLANDS AND KIDNEYS: Normal adrenal glands. Stable 2 cm fatty lesion exophytic to the lower pole of the left kidney suggestive angiomyolipoma.? BOWEL LOOPS: Normal. Small umbilical hernia containing fat. LYMPH NODES: Normal. VASCULAR: Unremarkable. BONES: Degenerative changes of the spine.? CT/CT abdomen wo IV con IMPRESSION: Stable 2 cm fatty lesion exophytic to the lower pole of the left kidney suggestive of a benign angiomyolipoma. Enlarged fatty liver. Code(s): K75.81 - Nonalcoholic steatohepatitis (HILTON) (5) Diabetes: Comment: DX via abnormal 3 hour glucose tolerance test Code(s): E11.9 - Type 2 diabetes mellitus without complications Medications: Refilled famotidine (Pepcid) 40 mg PO BEDTIME 30 tabs 6RF docusate sodium (Colace) 100 mg PO .DAILY WITH FOOD 30 days 30 caps 6RF K59.04 - Chronic idiopathic constipation dicyclomine 20 mg (2 x 10 mg) PO QID 120 caps 6RF R10.9 - Unspecified abdominal pain bisacodyl (Dulcolax (bisacodyl)) 10 mg (2 x 5 mg) PO BEDTIME 30 days 60 tabs 6RF K59.04 - Chronic idiopathic constipation hydrocortisone 2.5% (Proctosol HC) 1 appl [place] BID 30 grams 6RF hemorrhoids K64.9 - Unspecified hemorrhoids linaclotide (Linzess) 145 mcg PO QAM 30 caps 6RF K59.04 - Chronic idiopathic constipation metoclopramide HCl (Reglan) 10 mg PO QIDACHS 120 tabs 6RF K31.84 - Gastroparesis omeprazole 40 mg PO DAILY 30 days 30 caps 6RF simethicone after meals 180 mg PO QID 30 days 120 caps 3RF Discontinued Proctosol HC 2.5% (hydrocortisone) Discontinued Reason: Doctor's Order 1 appl VA BID 30 days 28.35 grams 6RF hemorrhoids NS K64.9 - Unspecified hemorrhoids Coding Level of Care Code Est Pt Level 3 (02133) Diagnoses Gastroparesis K31.84 GERD (gastroesophageal reflux disease) K21.9 Esophagitis presence: esophagitis presence not specified Chronic idiopathic constipation K59.04 HILTON (nonalcoholic steatohepatitis) K75.81 Diabetes E11.9
[2022-12-20 14:49] VITALS: BP 126/60; PULSE 86; BMI 29.5
== END 2022-12-20 15:15 | disposition home or self-care (01) ==
PROVIDERS: PCP Internal Medicine; Visit Provider Nurse Practitioner
DX: K31.84 Gastroparesis (principal); K21.9 Gastro-esophageal reflux disease without esophagitis; K59.04 Chronic idiopathic constipation; K75.81 Nonalcoholic steatohepatitis (NASH); E11.9 Type 2 diabetes mellitus without complications
CPT/HCPCS: 99213

== ENCOUNTER → 2022-12-20 14:33 | Outpatient (BNVA) | payer OTHER, SELFPAY | PROVIDERS: PCP Internal Medicine; Visit Provider Nurse Practitioner | DX: K31.84 Gastroparesis (principal); K21.9 Gastro-esophageal reflux disease without esophagitis; K59.04 Chronic idiopathic constipation; K75.81 Nonalcoholic steatohepatitis (NASH); E11.9 Type 2 diabetes mellitus without complications | CPT/HCPCS: 99212 ==

== ENCOUNTER 2023-04-16 15:00 | Outpatient (AMB) | payer OTHER, SELFPAY ==
[2023-04-16 15:02] VITALS: BP 120/90; PULSE 75; O2SAT 99; BMI 28.8
--- NOTE | 2023-04-16 15:02 | A.OFFPC_ITS ---
Vital Signs 04/16/23 15:02 Height 5 ft 6 in Weight 178 lb 8 oz BMI 28.8 BP 120/90 H Blood Pressure Location Lt brachial Position Sitting Pulse 75 Pulse Source Pulse Oximeter Pulse Oximetry (%) 99 Oxygen Delivery Method Room Air Intake Visit Reasons: bp Rn Field Required: No Accompanied by: Daughter Allergies No Known Allergies Allergy (Verified 04/16/23 15:24) Medication List - Last Reconciled 04/16/23 by Mara Lorenzo MD bisacodyl (Dulcolax (bisacodyl)) 10 mg (2 x 5 mg) PO BEDTIME 30 days diclofenac sodium 1% 2 grams topical BID dicyclomine 20 mg (2 x 10 mg) PO QID disposable gloves (Biobrane Gloves Medium) Use 1 pair of gloves as needed docusate sodium (Colace) 100 mg PO .DAILY WITH FOOD 30 days famotidine (Pepcid) 40 mg PO BEDTIME gabapentin 600 mg PO BEDTIME 90 days hydrochlorothiazide 25 mg PO DAILY 90 days hydrocortisone 2.5% (Proctosol HC) 1 appl OR BID incontinence pad, liner, disp As directed [lift chair As directed] linaclotide (Linzess) 145 mcg PO QAM metoclopramide HCl (Reglan) 10 mg PO QIDACHS metoprolol succinate ER 25 mg PO DAILY omeprazole 40 mg PO DAILY 30 days Shower Chair As directed simethicone 180 mg PO QID 30 days tramadol 50 mg PO DAILY PRN 30 days trazodone 50 mg PO BEDTIME PRN 90 days underpads (Certainty Underpads) Use 1 underpad once a day walker As directed [wipes As directed] Tobacco use date assessed: 07/04/22 Dental Screening Dental Screen Date: 04/16/23 Did you have a dental visit in the last 12 months?: Yes Did you have a dental problem in the last 6 months where you did not have access to dental care?: No Was dental information given to patient?: Patient has dentist HPI HPI Comments History of Present Illness Details This is a 58-year-old female with diabetes mellitus type 2, hypertension, moderate major depression and anxiety that comes today accompanied by daughter for follow-up on her conditions. A1c within goal and was advised to do a low-carbohydrate diet. Blood pressure stable. Depression and anxiety in remission. No chest pain or shortness of breath. Complains of diffuse abdominal pain follow by Gastroenterology. [facility] Medical History Androgenic alopecia Angiomyolipoma of kidney Urinary incontinence Hair loss Skin change Physical exam Disc degeneration, lumbar Knee osteoarthritis Spondylosis of lumbar spine Retention of urine Essential hypertension Headache Polyarthralgia Skin lesion Physical exam Osteoarthritis Vomiting and diarrhea Normal colonoscopy Tachycardia Fibromyalgia Dyspepsia Surgical History Hx of colonoscopy (~2010) History of esophagogastroduodenoscopy (EGD) (~2017) History of breast biopsy (~2005) Tubal ligation status History of hysterectomy Family History Father No problems noted. Mother Pulmonary hypertension CVD (cardiovascular disease) HTN (hypertension) Maternal Aunt Breast cancer Maternal Aunt Breast cancer Paternal Aunt Lymphoma Paternal Uncle Gastric cancer Other Cancer Diabetes Urinary incontinence Social History Household Members: Family Housing: Apartment Alcohol intake: never Patient Tobacco Use Status: Never used Tobacco e-Cigarette/Vaping Use: Never Used Second Hand Smoke Exposure: No service: No Current occupational status: unemployed Cognitive needs: Yes Hearing needs: No Vision needs: Yes Questionnaire Thrive Questionnaire Date Thrive assessed: 07/04/22 AUDIT C Alcohol Use Questionnaire (AUDIT-C) 1. How often do you have a drink containing alcohol?: Never 3. How often do you have six or more drinks on one occasion?: Never Total Score: 0 KAYLA-7 AMB Questionnaire KAYLA-7 Date KAYLA - 7 assessed: 07/04/22 Source: Developed by Drs. Peter Moreno, Yanna Madrigal, Christopher Lee and colleagues, with an educational ruslan from [employer]. Review of Systems Const All systems reviewed & are unremarkable except as noted in HPI and below Eyes Reports no additional complaints, Denies change in vision and Denies other visual disturbances Card Denies chest pain at rest, Denies chest pain with activity, Denies edema, Denies irregular heart rhythm, Denies claudication, Denies dyspnea, Denies dyspnea on exertion, Denies orthopnea, Denies paroxysmal nocturnal dyspnea and Denies slow heart rate Resp Denies cough, Denies dyspnea and Denies dyspnea on exertion GI Denies abdominal pain, Denies change in bowel habits, Denies excessive flatus, Denies nausea and Denies vomiting Denies urinary incontinence, Denies urinary hesitancy and Denies urinary urgency Musc Denies abnormal gait, Denies atrophy, Denies deformity and Denies limited range of motion Skin/Breast Denies bleeding lesions, Denies changing lesions and Denies rash Neuro Denies abnormal gait, Denies behavioral changes and Denies lack of coordination Psych Denies behavioral changes Physical exam (Primary Care) Vital Signs: Last Vital Signs Pulse 75 04/16/23 15:02 BP 120/90 H 04/16/23 15:02 Pulse Ox 99 04/16/23 15:02 Oxygen Delivery Method Room Air 04/16/23 15:02 BMI result Body Mass Index 28.8 Tobacco/Smoking Status: Tobacco use Status Tobacco use date assessed 07/04/22 04/16/23 15:05 Patient Tobacco Use Status Never used Tobacco 04/16/23 15:05 e-Cigarette/Vaping Use Never Used 04/16/23 15:05 Thrive Assessment: Date of Thrive Assessment Date Thrive assessed 07/04/22 04/16/23 15:05 Eyes General: appearance normal, both eyes and all related structures Eyelids: Yes eyelids normal Conjunctivae: conjunctivae normal Neck Neck: Yes normal visual inspection and Yes supple Resp Effort & Inspection: normal respiratory effort Auscultation: clear to auscultation bilaterally Cardio Jugular venous distension: no JVD Rate: regular rate Rhythm: regular rhythm Heart sounds: S1 normal heart sound present and S2 normal heart sound present Extrem General: Yes full ROM Results AMB Hemoglobin A1c AMB Hemoglobin A1c 6.5 % Last Edit by AGUILAR Tang on 04/16/23 15:23 Results Reviewed Results Reviewed: Laboratory Last Values Hgb A1c (Clinic) 6.5 % (4.0-6.0) H 04/16/23 15:22 Assessment and Plan Assessment & Plan (1) Diabetes: Comment: DX via abnormal 3 hour glucose tolerance test Code(s): E11.9 - Type 2 diabetes mellitus without complications Plan: Start low-carbohydrate diet. A1c goal is equal or less than 7%. (2) Moderate recurrent major depression: Code(s): F33.1 - Major depressive disorder, recurrent, moderate Plan: Continue trazodone. In remission (3) KAYLA (generalized anxiety disorder): Code(s): F41.1 - Generalized anxiety disorder Plan: Continue trazodone. In remission (4) Essential hypertension: Code(s): I10 - Essential (primary) hypertension Plan: Continue hydrochlorothiazide. Blood pressure goal is equal or less than 130/80. Orders: Orders AMB Hemoglobin A1c Today E11.9 - Type 2 diabetes mellitus without complications Lipid Panel Today E78.5 - Hyperlipidemia, unspecified Vitamin D 25-OH Total Today E55.9 - Vitamin D deficiency, unspecified Comprehensive [place]. Panel Fast Today E11.9 - Type 2 diabetes mellitus without complications Medications: Refilled gabapentin 600 mg PO BEDTIME 90 days 90 tabs 0RF Coding Level of Care Code Est Pt Level 4 (54773) Diagnoses Diabetes E11.9 Moderate recurrent major depression F33.1 KAYLA (generalized anxiety disorder) F41.1 Essential hypertension I10 Time Spent (min) 22
== END 2023-04-16 15:36 | disposition home or self-care (01) ==
PROVIDERS: Visit Provider Internal Medicine
DX: E11.9 Type 2 diabetes mellitus without complications (principal); F33.1 Major depressive disorder, recurrent, moderate; F41.1 Generalized anxiety disorder; I10 Essential (primary) hypertension
CPT/HCPCS: 83036; 99214

== ENCOUNTER 2023-05-09 08:53 | Outpatient (AMB) | payer OTHER, SELFPAY ==
--- NOTE | 2023-05-09 08:56 | MHC.OFFVIS ---
Intake Vital Signs 05/09/23 08:57 Height 5 ft 6 in Weight 184 lb 4.903 oz BMI 29.7 BP 149/80 H Blood Pressure Location Lt brachial Position Sitting Pulse 64 Intake Visit Reasons: abd pain Intake Note: Patient returns to in office follow up of abdominal pain. CC: Patient c/o abdominal pain, bloating, epigastric pain, weakness, poor appetite, weird taste when eating, constipation, nausea and vomiting. She also c/o rectal pain and inflammation from rectum, hemorrhoids, very thin stools, and dizziness. Onset of symptoms 2 weeks ago. Saddle Maker Required: Yes Accompanied by: Daughter Allergies No Known Allergies Allergy (Verified 05/09/23 09:03) HPI abd pain HPI Details Assessment & Plan (1) Gastroparesis: Code(s): K31.84 - Gastroparesis Plan: MALAGASY #Vandana Live I reviewed the results of her tests and with an A1c of 6.6 she is likely prediabetic.. She could also have out right diabetes which could explain why she has the delayed gastric emptying but she sort of in a pollack zone. The good news is that she is feeling extremely well since we increase the Reglan and got her bowels moving. At this point she is very happy with her GI regimen and feels that she is stable. She continues on omeprazole in the morning and famotidine at night, Reglan 10 mg 4 times a day, Linzess and bisacodyl, dicyclomine and simethicone. I think will wait until the next 6 month interval to check her liver enzymes and do an ultrasound for her HILTON. To Return office visit in 6 months. (2) GERD (gastroesophageal reflux disease): Code(s): K21.9 - Gastro-esophageal reflux disease without esophagitis Qualifiers: Esophagitis presence: esophagitis presence not specified Qualified Code(s): K21.9 - Gastro-esophageal reflux disease without esophagitis (3) Chronic idiopathic constipation: Code(s): K59.04 - Chronic idiopathic constipation (4) HILTON (nonalcoholic steatohepatitis): Comment: BASELINE LABS; 12/2018 alpha fetoprotein 2.5, ultrasound shows fatty replacement with no tumor, negative hepatitis a B and C screen, AST/ALT 17/43 with the rest the liver panel normal, TSH normal, negative autoimmune workup, ferritin 403. CURRENT LABS .10/03/2303 [id number] WBC 8.0 Hgb 13.8 Hct 42.7 Plt Count 338 Estimated GFR > 60 Total Bilirubin 0.6 AST 15 ALT 37 H Alkaline Phosphatase 66 Alpha Fetoprotein 5.[address] ABD AND PELVIS 07/27/22 FINDINGS: LUNG BASES: Normal? LIVER, GALLBLADDER, BILIARY TREE: Enlarged fatty liver with fatty infiltration. Normal gallbladder. No biliary duct dilatation.? PANCREAS: Normal? SPLEEN: Normal? ADRENAL GLANDS AND KIDNEYS: Normal adrenal glands. Stable 2 cm fatty lesion exophytic to the lower pole of the left kidney suggestive angiomyolipoma.? BOWEL LOOPS: Normal. Small umbilical hernia containing fat. LYMPH NODES: Normal. VASCULAR: Unremarkable. BONES: Degenerative changes of the spine.? CT/CT abdomen wo IV con IMPRESSION: Stable 2 cm fatty lesion exophytic to the lower pole of the left kidney suggestive of a benign angiomyolipoma. Enlarged fatty liver. Code(s): K75.81 - Nonalcoholic steatohepatitis (HILTON) (5) Diabetes: Comment: DX via abnormal 3 hour glucose tolerance test Code(s): E11.9 - Type 2 diabetes mellitus without complications Medications: Refilled famotidine (Pepcid ) 40 mg PO BEDTIME 30 tabs 6RF docusate sodium (C olace) 100 mg PO .DAILY WITH FOOD 30 days 30 caps 6RF K59.04 - Chronic i diopathic constipa tion dicyclomine 20 mg (2 x 10 mg) PO QID 120 caps 6R F R10.9 - Unspecifie d abdominal pain bisacodyl (Dulcola x (bisacodyl)) 10 mg (2 x 5 mg) P O BEDTIME 30 days 60 tabs 6RF K59.04 - Chronic i diopathic constipa tion hydrocortisone 2.5 % (Proctosol HC) 1 appl NV BID 30 grams 6RF hemorrho ids K64.9 - Unspecifie d hemorrhoids linaclotide (Linze ss) 145 mcg PO QAM 30 caps 6RF K59.04 - Chronic i diopathic constipa tion metoclopramide HCl (Reglan) 10 mg PO QIDACHS 120 tabs 6RF K31.84 - Gastropar esis omeprazole 40 mg PO DAILY 30 days 30 caps 6RF simethicone aft er meals 180 mg PO QID 30 days 120 caps 3RF Discontinued Proctosol HC 2.5% (hydrocortisone) Discontinued Diane son: Doctor's Ord er 1 appl NV BID 30 days 28.35 grams 6 RF hemorrhoids NS K64.9 - Unspecifie d hemorrhoids CORRESPONDENCE On 05/08/23 @ 12:52 Shiraz Arce Wrote To JuniorSeptember Added tomorrow at 9AM On 05/07/23 @ 15:53 Shiraz Arce Wrote To Shiraz Arce LVM requesting call back to add for tomorrow 05/08/23 as we have some cancellations. On 05/01/23 @ 16:21 Marah Pacheco Wrote To Shiraz Arce V, do not know if I have anything? On 05/01/23 @ 15:52 Anabell Saxena Wrote To JuniorSeptember (2) patient called and stated that she is not feeling well and hasn't been feeling good for the last two weeks. she is asking for a sooner appointment . TODAY'S VISIT MALAGASY #Liza She continues on omeprazole in the morning and famotidine at night, Reglan 10 mg 4 times a day, Linzess and bisacodyl, dicyclomine and simethicone. She needs her liver functions and reordered today for HILTON. She is having pain in the pit of her stomach that radiates to the right and she feels bloated in the RUQ. Her rectum is also uncomfortable. She has not been moving her bowels well and she has been vomiting - this despite taking the Linzess 145mcg. She feels like she needs to pass gas but she is unable to. She is pushing to move the gas adn bowels but this makes it feel like my head will explode. This was of sudden onset about 2 weeks ago. No fevers/chills, no known sick contacts with similar sx, no changes in her medicines. Were going to get some basic labs because she is due for HILTON monitoring anyway but will also add a thyroid and urinalysis to be complete since she is having new onset abdominal pain. I want to get an x-ray to make sure she is not having some sort of ileus or bowel obstruction. For now can increase her Linzess to 290 micro g. She is taking the Reglan 2 tabs before her largest meal because if she takes it throughout the day it causes her sleepiness. For now I would like her to add 1 more dose just at bedtime to see if we can get her bowels moving better. In the past she has had nausea that has been related to the constipation so I am hoping the getting her bowels moving will relieve this symptom. For also getting an ultrasound for general HILTON monitoring it is probably not about idea to check and make sure her gallbladder looks okay. ROV late next week to eval her response. [facility] Medical History Androgenic alopecia Angiomyolipoma of kidney Urinary incontinence Hair loss Skin change Physical exam Disc degeneration, lumbar Knee osteoarthritis Spondylosis of lumbar spine Retention of urine Essential hypertension Headache Polyarthralgia Skin lesion Physical exam Osteoarthritis Vomiting and diarrhea Normal colonoscopy Tachycardia Fibromyalgia Dyspepsia Surgical History Hx of colonoscopy (~2010) History of esophagogastroduodenoscopy (EGD) (~2017) History of breast biopsy (~2005) Tubal ligation status History of hysterectomy Family History Father No problems noted. Mother Pulmonary hypertension CVD (cardiovascular disease) HTN (hypertension) Maternal Aunt Breast cancer Maternal Aunt Breast cancer Paternal Aunt Lymphoma Paternal Uncle Gastric cancer Other Cancer Diabetes Urinary incontinence Social History Household Members: Family Housing: Apartment Alcohol intake: never Patient Tobacco Use Status: Never used Tobacco e-Cigarette/Vaping Use: Never Used Second Hand Smoke Exposure: No service: No Current occupational status: unemployed Cognitive needs: Yes Hearing needs: No Vision needs: Yes Review of Systems Const Denies fatigue, Denies fever(s), Denies night sweats, Reports poor appetite and Denies weight loss ENT Reports Normal hearing present, Denies dental pain, Denies dysphagia, Reports vertigo, Denies hearing loss, Denies mouth pain, Denies odynophagia, Denies throat swelling, Denies tongue swelling and Reports other (Dentition adequate) Card Reports syncope Resp Reports no additional complaints GI Reports abdominal pain, Denies melena, Reports bloating, Denies hematochezia, Reports constipation, Denies GI cramping, Denies dysphagia, Denies excessive flatus, Reports early satiety, Reports heartburn, Denies diarrhea, Reports nausea, Denies odynophagia, Reports vomiting and Denies hematemesis Details: dark yellow urine Musc Reports myalgias and Reports arthralgias Skin/Breast Denies pruritus, Denies lesions, Denies rash and Denies jaundice Neuro Reports Normal hearing present, Denies Abnormal speech present, Reports vertigo and Reports syncope Endo Denies fatigue Aller/Immun Denies throat swelling and Denies tongue swelling Physical Exam Vital Signs: Last Vital Signs Pulse 64 05/09/23 08:57 BP 149/80 H 05/09/23 08:57 BMI result Body Mass Index 29.7 Const General: cooperative, no acute distress, well developed and well groomed Nutritional Appearance: well nourished and overweight Orientation/consciousness: oriented to person, oriented to place and oriented to time Limitations: language barrier and ambulation with cane HEENT Head: Yes normocephalic and Yes atraumatic Eyes General: appearance normal, both eyes and all related structures Pupils: Equal, round and reactive pupils present Neck Neck: Yes normal visual inspection and Yes no lymphadenopathy Thyroid: Thyroid normal Resp Effort & Inspection: normal respiratory effort and able to speak in complete sentences Auscultation: clear to auscultation bilaterally Cardio Rate: regular rate Rhythm: regular rhythm Heart sounds: Normal, physiologic split S2 sound present Peripheral pulses: radial pulses present and posterior tibial pulses present GI Inspection: No distended and No Abdominal panniculus present Palpation (GI): Soft to palpation, Tenderness to palpation present (GI) in the epigastrum, no guarding, not rigid and No hepatosplenomegaly present Percussion: Yes normal to percussion Auscultation: normal bowel sounds Rectal Exam - Female: deferred Skin General skin exam: no rashes or lesions noted, turgor normal, skin not dry, no jaundice, No spider nevi and no striae Rashes: no rashes Nails: normal Neuro General: oriented to person, oriented to place and oriented to time Cranial nerves: Yes Equal, round and reactive pupils present and Yes Normal hearing present Speech: No Abnormal speech present Extrem General: Yes normal to inspection, No clubbing, No cyanosis and No edema Psych Appearance: grossly normal and well kempt Mental Status: mental status grossly normal Speech and movement: Normal speech and movement present Affect: normal affect Attitude: cooperative Thought process: Normal thought process present and not confabulating Thought content: Normal thought content present Insight: Limited insight present (Psych) Judgement: Limited judgement present (Psych) Assessment & Plan Assessment & Plan (1) Abdominal pain: Code(s): R10.9 - Unspecified abdominal pain Plan: MALAGASY #Liza She continues on omeprazole in the morning and famotidine at night, Reglan 10 mg 4 times a day, Linzess and bisacodyl, dicyclomine and simethicone. She needs her liver functions and reordered today for HILTON. She is having pain in the pit of her stomach that radiates to the right and she feels bloated in the RUQ. Her rectum is also uncomfortable. She has not been moving her bowels well and she has been vomiting - this despite taking the Linzess 145mcg. She feels like she needs to pass gas but she is unable to. She is pushing to move the gas adn bowels but this makes it feel like my head will explode. This was of sudden onset about 2 weeks ago. No fevers/chills, no known sick contacts with similar sx, no changes in her medicines. Were going to get some basic labs because she is due for HILTON monitoring anyway but will also add a thyroid and urinalysis to be complete since she is having new onset abdominal pain. I want to get an x-ray to make sure she is not having some sort of ileus or bowel obstruction. For now can increase her Linzess to 290 micro g. She is taking the Reglan 2 tabs before her largest meal because if she takes it throughout the day it causes her sleepiness. For now I would like her to add 1 more dose just at bedtime to see if we can get her bowels moving better. In the past she has had nausea that has been related to the constipation so I am hoping the getting her bowels moving will relieve this symptom. For also getting an ultrasound for general HILTON monitoring it is probably not about idea to check and make sure her gallbladder looks okay. ROV late next week to eval her response. (2) Nausea and vomiting: Code(s): R11.2 - Nausea with vomiting, unspecified (3) Gastroparesis: Code(s): K31.84 - Gastroparesis (4) GERD (gastroesophageal reflux disease): Code(s): K21.9 - Gastro-esophageal reflux disease without esophagitis Qualifiers: Esophagitis presence: esophagitis presence not specified Qualified Code(s): K21.9 - Gastro-esophageal reflux disease without esophagitis (5) Chronic idiopathic constipation: Code(s): K59.04 - Chronic idiopathic constipation (6) H pylori ulcer: Comment: Stool antigen negative 09/2020 performed at [facility] Code(s): K27.9 - Peptic ulcer, site unspecified, unspecified as acute or chronic, without hemorrhage or perforation; B96.81 - Helicobacter pylori [H. pylori] as the cause of diseases classified elsewhere (7) HILTON (nonalcoholic steatohepatitis): Comment: BASELINE LABS; 12/2018 alpha fetoprotein 2.5, ultrasound shows fatty replacement with no tumor, negative hepatitis a B and C screen, AST/ALT 17/43 with the rest the liver panel normal, TSH normal, negative autoimmune workup, ferritin 403. CURRENT LABS .10/03/2303 09:[id number] WBC 8.0 Hgb 13.8 Hct 42.7 Plt Count 338 Estimated GFR > 60 Total Bilirubin 0.6 AST 15 ALT 37 H Alkaline Phosphatase 66 Alpha Fetoprotein 5.[address] ABD AND PELVIS 07/27/22 FINDINGS: LUNG BASES: Normal? LIVER, GALLBLADDER, BILIARY TREE: Enlarged fatty liver with fatty infiltration. Normal gallbladder. No biliary duct dilatation.? PANCREAS: Normal? SPLEEN: Normal? ADRENAL GLANDS AND KIDNEYS: Normal adrenal glands. Stable 2 cm fatty lesion exophytic to the lower pole of the left kidney suggestive angiomyolipoma.? BOWEL LOOPS: Normal. Small umbilical hernia containing fat. LYMPH NODES: Normal. VASCULAR: Unremarkable. BONES: Degenerative changes of the spine.? CT/CT abdomen wo IV con IMPRESSION: Stable 2 cm fatty lesion exophytic to the lower pole of the left kidney suggestive of a benign angiomyolipoma. Enlarged fatty liver. Code(s): K75.81 - Nonalcoholic steatohepatitis (HILTON) Orders: Orders XR abdomen w decubitus Today R10.9 - Unspecified abdominal pain US abdomen complete Today K75.81 - Nonalcoholic steatohepatitis (HILTON), R10.9 - Unspecified abdominal pain Comprehensive Met. Panel Today K75.81 - Nonalcoholic steatohepatitis (HILTON), R10.9 - Unspecified abdominal pain Complete Blood Count Auto Diff Today K75.81 - Nonalcoholic steatohepatitis (HILTON), R10.9 - Unspecified abdominal pain UA CC w/rflx Micro + Cult Today K75.81 - Nonalcoholic steatohepatitis (HILTON), R10.9 - Unspecified abdominal pain Alpha Fetoprotein Today K75.81 - Nonalcoholic steatohepatitis (HILTON), R10.9 - Unspecified abdominal pain Medications: New linaclotide (Linzess) 290 mcg PO QAM 30 days 30 caps 6RF K59.04 - Chronic idiopathic constipation Refilled hydrocortisone 2.5% (Proctosol HC) 1 appl NV BID 30 grams 6RF hemorrhoids K64.9 - Unspecified hemorrhoids On Hold linaclotide (Linzess) Hold Comment: Doctor's Order 145 mcg PO QAM 30 caps 6RF K59.04 - Chronic idiopathic constipation Coding Level of Care Code Est Pt Level 4 (30577) Diagnoses Abdominal pain R10.9 Nausea and vomiting R11.2 Gastroparesis K31.84 Gastroesophageal reflux disease, unspecified whether esophagitis present K21.9 Esophagitis presence: esophagitis presence not specified Chronic idiopathic constipation K59.04 H pylori ulcer K27.9; B96.81 HILTON (nonalcoholic steatohepatitis) K75.81
[2023-05-09 08:57] VITALS: BP 149/80; PULSE 64; BMI 29.7
== END 2023-05-09 09:42 | disposition home or self-care (01) ==
PROVIDERS: PCP Internal Medicine; Visit Provider Nurse Practitioner
DX: R10.9 Unspecified abdominal pain (principal); R11.2 Nausea with vomiting, unspecified; K31.84 Gastroparesis; K21.9 Gastro-esophageal reflux disease without esophagitis; K59.04 Chronic idiopathic constipation; K27.9 Peptic ulcer, site unspecified, unspecified as acute or chronic, without hemorrhage or perforation; B96.81 Helicobacter pylori [H. pylori] as the cause of diseases classified elsewhere; K75.81 Nonalcoholic steatohepatitis (NASH)
CPT/HCPCS: 99214

== ENCOUNTER 2023-05-09 08:53 | Outpatient (REF) | payer OTHER, SELFPAY ==
--- NOTE | ~2023-05-09 | XR_ITS ---
EXAMINATION: XR ABDOMEN WITH DECUBITUS VIEWS CLINICAL INDICATION: Abdominal pain. COMPARISON: CT abdomen dated 07/24/2022. TECHNIQUE: 4 supine and upright views of the abdomen and pelvis are submitted. FINDINGS: The bowel gas pattern is normal with no evidence of ileus or obstruction. There is gas identified to the level of the rectum. No unusual soft tissue calcifications are noted. There are multiple pelvic phleboliths. The bones are unremarkable. XR/XR abdomen w decubitus IMPRESSION: Unremarkable examination.
== END 2023-05-09 08:54 | disposition home or self-care (01) ==
LOC: HO.XRAY 08:53
PROVIDERS: PCP Internal Medicine; Visit Provider Nurse Practitioner
DX: R10.9 Unspecified abdominal pain (principal); R11.2 Nausea with vomiting, unspecified; K31.84 Gastroparesis; K21.9 Gastro-esophageal reflux disease without esophagitis; K59.04 Chronic idiopathic constipation; K75.81 Nonalcoholic steatohepatitis (NASH)
CPT/HCPCS: 74021; 99212

== ENCOUNTER 2023-05-11 06:58 | Outpatient (REF) | payer OTHER, SELFPAY ==
[2023-05-11 07:18] LABS: MANUAL DIFF FLAG NO
[2023-05-11 07:44] LABS: Basophils Percent Auto 0.5 % (0-2); Eosinophils Absolute Auto 0.1 X10*3/uL (0.0-0.4); Eosinophils Percent Auto 1.4 % (0-4); Hematocrit 42.7 % (37.0-47.0); Imm Gran Abs Auto 0.02 X10*3/uL (0.00-0.03); Imm Gran Pct Auto 0.3 % (0.0-0.4); Lymphocytes Absolute Auto 3.8 X10*3/uL (1.2-4.9); Lymphocytes Percent Auto 47.1 % (20-40); Mean Corpuscular HGB Conc 32.8 g/dl (31.0-35.0); Mean Corpuscular Hemoglobin 27.6 pg (27.0-33.0); Mean Corpuscular Volume 84.1 fL (80.0-98.0); Mean Platelet Volume 10.8 fL (9.4-12.3); Monocytes Absolute Auto 0.5 X10*3/uL (0.1-1.2); Monocytes Percent Auto 5.9 % (2-11); Neutrophils Absolute Auto 3.6 x10*3/uL (2.0-8.3); Neutrophils Percent Auto 44.8 % (45-73); Platelet Count 372 X10*3/uL (160-400); Red Blood Count 5.08 X10*6/uL (4.20-5.50); Red Cell Distribution Width 14.6 % (11.0-16.0)
[2023-05-11 08:17] LABS: Alanine Aminotransferase 19 U/L (0-31); Albumin Level 4.4 g/dL (3.5-5.0); Alkaline Phosphatase 64 U/L (39-117); Anion Gap 12 (12-20); Aspartate Amino Transferase 10 U/L (5-31); Bilirubin Total 0.3 mg/dL (0.0-1.0); Blood Urea Nitrogen 14 mg/dL (9-16); Calcium 9.9 mg/dL (8.4-10.2); Carbon Dioxide 29 mmol/L (22-29); Chloride 105 mmol/L (96-108); Cholesterol 310 mg/dL (<200); Estimated Glomerular Filt Rate > 60; Glucose Random 124 mg/dL (60-115); HDL Cholesterol 48 mg/dL (>40); LDL Cholesterol Calculated 226 mg/dL (<100); Sodium 142 mmol/L (135-145); Total Protein 7.9 g/dL (6.5-8.0); Triglycerides 182 mg/dL (<150)
[2023-05-11 08:24] LABS: Appearance Urine Cloudy; Color Urine Yellow; Glucose Urine UA Negative (Negative); Leukocyte Esterase Urine Negative (Negative); Nitrite Urine Negative (Negative); PH 5.5 (5.0-9.0); Urine Blood Negative (Negative); Urine Ketones Negative (Negative); Urine Protein Negative (Neg-Trace)
[2023-05-11 08:31] LABS: Vitamin D 25-OH Total 32.5 ng/mL (>30)
[2023-05-15 12:19] LABS: Alpha Fetoprotein 5.1 ng/mL
== END 2023-05-11 06:59 | disposition home or self-care (01) ==
LOC: HO.LAB 06:58
PROVIDERS: Absent Provider Internal Medicine; PCP Internal Medicine; Visit Provider Nurse Practitioner
DX: R10.9 Unspecified abdominal pain (principal); K75.81 Nonalcoholic steatohepatitis (NASH); E55.9 Vitamin D deficiency, unspecified; E78.5 Hyperlipidemia, unspecified
CPT/HCPCS: 36415; 80053; 80061; 81003; 82105; 82306; 85025

== ENCOUNTER 2023-05-18 10:17 | Outpatient (AMB) | payer OTHER, SELFPAY ==
--- NOTE | 2023-05-18 10:21 | A.OFFVIS_ITS ---
Intake Vital Signs 05/18/23 10:23 Height 5 ft 6 in Weight 181 lb 10.574 oz BMI 29.3 BP 134/76 Blood Pressure Location Lt brachial Position Sitting Pulse 81 Intake Visit Reasons: 1 week follow up Intake Note: Patient returns to in office follow up of labs and xray. CC: Patient reports she has been doing better form abdominal pain but Linzess did not help her a lot. Per patient she took a magnesium citrate bottle and was able to have a BM. Per patient she has occasional nausea and poor appetite. 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 She needs her liver functions and reordered today for HILTON. She is having pain in the pit of her stomach that radiates to the right and she feels bloated in the RUQ. Her rectum is also uncomfortable. She has not been moving her bowels well and she has been vomiting - this despite taking the Linzess 145mcg. She feels like she needs to pass gas but she is unable to. She is pushing to move the gas and bowels but this makes it feel like my head will explode. This was of sudden onset about 2 weeks ago. No fevers/chills, no known sick contacts with similar sx, no changes in her medicines. Were going to get some basic labs because she is due for HILTON monitoring anyway but will also add a thyroid and urinalysis to be complete since she is having new onset abdominal pain. I want to get an x-ray to make sure she is not having some sort of ileus or bowel obstruction. For now can increase her Linzess to 290 micro g. She is taking the Reglan 2 tabs before her largest meal because if she takes it throughout the day it causes her sleepiness. For now I would like her to add 1 more dose just at bedtime to see if we can get her bowels moving better. In the past she has had nausea that has been related to the constipation so I am hoping the getting her bowels moving will relieve this symptom. For also getting an ultrasound for general HILTON monitoring it is probably not about idea to check and make sure her gallbladder looks okay. ROV late next week to eval her response. (2) Nausea and vomiting: Code(s): R11.2 - Nausea with vomiting, unspecified (3) Gastroparesis: Code(s): K31.84 - Gastroparesis (4) GERD (gastroesophageal reflux diseas e): Code(s): K21.9 - Gastro-esophageal reflux disease without esophagitis Qualifiers: Esophagitis presence: esophagitis presence not specified Qualified Code(s): K21.9 - Gastro-esophageal reflux disease without esophagitis (5) Chronic idiopathic constipation: Code(s): K59.04 - Chronic idiopathic constipation (6) H pylori ulcer: Comment: Stool antigen negative 09/2020 performed at [facility] Code(s): K27.9 - Peptic ulcer, site unspecified, unspecified as acute or chronic, without hemorrhage or perforation; B96.81 - Helicobacter pylori [H. pylori] as the cause of diseases classified elsewhere (7) HILTON (nonalcoholic steatohepatitis): Comment: BASELINE LABS; 12/2018 alpha fetoprotein 2.5, ultrasound shows fatty replacement with no tumor, negative hepatitis a B and C screen, AST/ALT 17/43 with the rest the liver panel normal, TSH normal, negative autoimmune workup, ferritin 403. CURRENT LABS .10/03/2303/ [id number] WBC 8.0 Hgb 13.8 Hct 42.7 Plt Count 338 Estimated GFR > 60 Total Bilirubin 0.6 AST 15 ALT 37 H Alkaline Phosphatase 66 Alpha Fetoprotein 5.[address] ABD AND PELVIS 07/27/22 FINDINGS: LUNG BASES: Normal? LIVER, GALLBLADDER, BILIARY TREE: Enlarged fatty liver with fatty infiltration. Normal gallbladder. No biliary duct dilatation.? PANCREAS: Normal? SPLEEN: Normal? ADRENAL GLANDS AND KIDNEYS: Normal adrenal glands. Stable 2 cm fatty lesion exophytic to the lower pole of the left kidney suggestive angiomyolipoma.? BOWEL LOOPS: Normal. Small umbilical hernia containing fat. LYMPH NODES: Normal. VASCULAR: Unremarkable. BONES: Degenerative changes of the spine.? CT/CT abdomen wo IV con IMPRESSION: Stable 2 cm fatty lesion exophytic to the lower pole of the left kidney suggestive of a benign angiomyolipoma. Enlarged fatty liver. Code(s): K75.81 - Nonalcoholic steatohepatitis (HILTON) Orders: Orders XR abdomen w decub itus Today R10.9 - Unspecifie d abdominal pain US abdomen complet e Today K75.81 - Nonalcoho lic steatohepatiti s (HILTON), R10.9 - Unspecified abdomi nal pain Comprehensive Met. Panel Today K75.81 - Nonalcoho lic steatohepatiti s (HILTON), R10.9 - Unspecified abdomi nal pain Complete Blood Cou nt Auto Diff Today K75.81 - Nonalcoho lic steatohepatiti s (HILTON), R10.9 - Unspecified abdomi nal pain UA CC w/rflx Micro + Cult Today K75.81 - Nonalcoho lic steatohepatiti s (HILTON), R10.9 - Unspecified abdomi nal pain Alpha Fetoprotein Today K75.81 - Nonalcoho lic steatohepatiti s (HILTON), R10.9 - Unspecified abdomi nal pain Medications: New linaclotide (Linze ss) 290 mcg PO QAM 30 days 30 caps 6RF K59.04 - Chronic i diopathic constipa tion Refilled hydrocortisone 2.5 % (Proctosol HC) 1 appl MN BID 30 grams 6RF hemorrho ids K64.9 - Unspecifie d hemorrhoids On Hold linaclotide (Linze ss) Hold Commen t: Doctor's Order 145 mcg PO QAM 30 caps 6RF K59.04 - Chronic i diopathic constipa tion LABS: Laboratory Tests 04/16/23 05/11/23 05/11/23 15:22 07:16 07:16 WBC 8.0 Hgb 14.0 Hct 42.7 Plt Count 372 Estimated GFR > 60 Hgb A1c (Clinic) 6.5 H Total Bilirubin 0.3 AST 10 ALT 19 Alkaline Phosphata se 64 Alpha Fetoprotein 5.1 Collection Date: 05/11/23 Collection Time : 706 Source: Urine , Clean Catch Test Result Flag Refere nce Si te Ur Color Yellow Ur Appear C loudy P H 5. 5 5.0-9.0 Ur Glu Negati ve Negative mg/d L Urine Blood Negative Negative Spec Gr avity Ur 1.020 1.005-1.025 Urine Pro tein Negative N eg-Trace mg/dL Urine K[place] es Negative Neg ative mg/dL Ur Nitrite Negative Negat joana Ur Raymond Esterase Negative Negativ e ULTRASOUND OF THE ABDOMEN Scheduled in June X-RAY OF THE ABDOMEN WITH DECUBITUS 05/14/23 FINDINGS: The bowel gas pattern is normal with no evidence of ileus or obstruction. There is gas identified to the level of the rectum. No unusual soft tissue calcifications are noted. There are multiple pelvic phleboliths. The bones are unremarkable. XR/XR abdomen w decubitus IMPRESSION: Unremarkable examination. TODAY'S VISIT [employer] #Sarah and Lauri Live She has the stronger LInzess 290 but only moved her bowelsd twice the first day, then had thin soft BMs, but then hit a period w/o BM and had to buy OTC mag citrate and had an explosion. When she takes bisacodyl 2 tabs prn it causes her a lot of cramping and nausea. This makes her fearful of taking it. I suggest that she try 1 bisacodyl every night and continue the LInzess. She is agreeable to this She continues on omeprazole in the morning and famotidine at night, Reglan 10 mg 4 times a day, dicyclomine and simethicone. We review all of the labs and the results and since her liver functions are normal I think we can turn this over to her primary care provider for further monitoring from now on and she can return to our service if the transaminases rise greater than twice the normal upper limit. Keep 06/22 appt. 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 Mother Pulmonary hypertension CVD (cardiovascular disease) HTN (hypertension) Maternal Aunt Breast cancer Maternal Aunt Breast cancer Paternal Aunt Lymphoma Paternal Uncle Gastric cancer Other Cancer Diabetes Urinary incontinence Social History Household Members: Family Housing: Apartment Alcohol intake: never Patient Tobacco Use Status: Never used Tobacco e-Cigarette/Vaping Use: Never Used Second Hand Smoke Exposure: No service: No Current occupational status: unemployed Cognitive needs: Yes Hearing needs: No Vision needs: Yes Review of Systems Const Denies fatigue, Denies fever(s), Denies night sweats, Denies poor appetite and Denies weight loss ENT Reports Normal hearing present, Denies dental pain, Denies dysphagia, Denies hearing loss, Denies mouth pain, Denies odynophagia, Denies throat swelling, Denies tongue swelling and Reports other (Dentition adequate) Card Reports no additional complaints Resp Reports no additional complaints GI Denies abdominal pain, Denies melena, Reports bloating, Denies hematochezia, Reports constipation, Denies GI cramping, Denies dysphagia, Denies excessive flatus, Reports early satiety, Reports heartburn, Denies diarrhea, Denies nausea, Denies odynophagia, Denies vomiting and Denies hematemesis Skin/Breast Denies pruritus, Denies lesions, Denies rash and Denies jaundice Neuro Reports Normal hearing present and Denies Abnormal speech present Endo Denies fatigue Aller/Immun Denies throat swelling and Denies tongue swelling Physical Exam Vital Signs: Last Vital Signs Pulse 81 05/18/23 10:23 BP 134/76 05/18/23 10:23 BMI result Body Mass Index 29.3 Const General: cooperative, no acute distress, well developed and well groomed Nutritional Appearance: well nourished and obese Orientation/consciousness: oriented to person, oriented to place and oriented to time Limitations: language barrier HEENT Head: Yes normocephalic and Yes atraumatic Eyes General: appearance normal, both eyes and all related structures Pupils: Equal, round and reactive pupils present Neck Neck: Yes normal visual inspection and Yes no lymphadenopathy Thyroid: Thyroid normal Resp Effort & Inspection: normal respiratory effort and able to speak in complete sentences Auscultation: clear to auscultation bilaterally Cardio Rate: regular rate Rhythm: regular rhythm Heart sounds: Normal, physiologic split S2 sound present Peripheral pulses: radial pulses present and posterior tibial pulses present GI Inspection: No distended, No Abdominal panniculus present and Yes obesity Palpation (GI): Soft to palpation, nontender, no guarding, not rigid and No hepatosplenomegaly present Percussion: Yes normal to percussion Auscultation: normal bowel sounds Rectal Exam - Female: deferred Skin General skin exam: no rashes or lesions noted, turgor normal, skin not dry, no jaundice, No spider nevi and no striae Rashes: no rashes Nails: normal Neuro General: oriented to person, oriented to place and oriented to time Cranial nerves: Yes Equal, round and reactive pupils present and Yes Normal hearing present Speech: No Abnormal speech present Extrem General: Yes normal to inspection, No clubbing, No cyanosis and No edema Psych Appearance: grossly normal and well kempt Mental Status: mental status grossly normal Speech and movement: Normal speech and movement present Affect: normal affect Attitude: cooperative Thought process: Normal thought process present and not confabulating Thought content: Normal thought content present Insight: Limited insight present (Psych) Judgement: Limited judgement present (Psych) Results Reviewed Results Reviewed: Laboratory Tests 04/16/23 05/11/23 05/11/23 15:22 07:16 07:16 WBC 8.0 Hgb 14.0 Hct 42.7 Plt Count 372 Estimated GFR > 60 Hgb A1c (Clinic) 6.5 H Total Bilirubin 0.3 AST 10 ALT 19 Alkaline Phosphatase 64 Alpha Fetoprotein 5.1 Collection Date: 05/11/23 Collection Time: 0707 Source: Urine, Clean Catch Test Result Flag Reference Site Ur Color Yellow Ur Appear Cloudy PH 5.5 5.0-9.0 Ur Glu Negative Negative mg/dL Urine Blood Negative Negative Spec Coral Ur 1.020 1.005-1.025 Urine Protein Negative Neg-Trace mg/dL Urine Ketones Negative Negative mg/dL Ur Nitrite Negative Negative Ur Raymond Esterase Negative Negative ULTRASOUND OF THE ABDOMEN Scheduled in June X-RAY OF THE ABDOMEN WITH DECUBITUS 05/14/23 FINDINGS: The bowel gas pattern is normal with no evidence of ileus or obstruction. There is gas identified to the level of the rectum. No unusual soft tissue calcifications are noted. There are multiple pelvic phleboliths. The bones are unremarkable. XR/XR abdomen w decubitus IMPRESSION: Unremarkable examination. . Assessment & Plan Assessment & Plan (1) Chronic idiopathic constipation: Code(s): K59.04 - Chronic idiopathic constipation (2) Nausea and vomiting: Code(s): R11.2 - Nausea with vomiting, unspecified (3) Abdominal pain: Code(s): R10.9 - Unspecified abdominal pain (4) HILTON (nonalcoholic steatohepatitis): Comment: BASELINE LABS; 12/2018 alpha fetoprotein 2.5, ultrasound shows fatty replacement with no tumor, negative hepatitis a B and C screen, AST/ALT 17/43 with the rest the liver panel normal, TSH normal, negative autoimmune workup, ferritin 403. CURRENT LABS 04/16/23 the WBC 8.0 Hgb 14.0 Hct 42.7 Plt Count 372 Estimated GFR > 60 Hgb A1c (Clinic) 6.5 H Total Bilirubin 0.3 AST 10 ALT 19 Alkaline Phosphatase [address] ABD AND PELVIS 07/27/22 FINDINGS: LUNG BASES: Normal? LIVER, GALLBLADDER, BILIARY TREE: Enlarged fatty liver with fatty infiltration. Normal gallbladder. No biliary duct dilatation.? PANCREAS: Normal? SPLEEN: Normal? ADRENAL GLANDS AND KIDNEYS: Normal adrenal glands. Stable 2 cm fatty lesion exophytic to the lower pole of the left kidney suggestive angiomyolipoma.? BOWEL LOOPS: Normal. Small umbilical hernia containing fat. LYMPH NODES: Normal. VASCULAR: Unremarkable. BONES: Degenerative changes of the spine.? CT/CT abdomen wo IV con IMPRESSION: Stable 2 cm fatty lesion exophytic to the lower pole of the left kidney suggestive of a benign angiomyolipoma. Enlarged fatty liver. Code(s): K75.81 - Nonalcoholic steatohepatitis (HILTON) (5) GERD (gastroesophageal reflux disease): Code(s): K21.9 - Gastro-esophageal reflux disease without esophagitis Qualifiers: Esophagitis presence: esophagitis presence not specified Qualified Code(s): K21.9 - Gastro-esophageal reflux disease without esophagitis (6) Gastroparesis: Code(s): K31.84 - Gastroparesis Plan [employer] #Sarah and Lauri Live She has the stronger LInzess 290 but only moved her bowelsd twice the first day, then had thin soft BMs, but then hit a period w/o BM and had to buy OTC mag citrate and had an explosion. When she takes bisacodyl 2 tabs prn it causes her a lot of cramping and nausea. This makes her fearful of taking it. I suggest that she try 1 bisacodyl every night and continue the LInzess. She is agreeable to this She continues on omeprazole in the morning and famotidine at night, Reglan 10 mg 4 times a day, dicyclomine and simethicone. We review all of the labs and the results and since her liver functions are normal I think we can turn this over to her primary care provider for further monitoring from now on and she can return to our service if the transaminases rise greater than twice the normal upper limit. Keep 06/22 appt. Coding Level of Care Code Est Pt Level 3 (28870) Diagnoses Chronic idiopathic constipation K59.04 Nausea and vomiting R11.2 Abdominal pain R10.9 HILTON (nonalcoholic steatohepatitis) K75.81 Gastroesophageal reflux disease, unspecified whether esophagitis present K21.9 Esophagitis presence: esophagitis presence not specified Gastroparesis K31.84
[2023-05-18 10:23] VITALS: BP 134/76; PULSE 81; BMI 29.3
== END 2023-05-18 11:19 | disposition home or self-care (01) ==
PROVIDERS: PCP Internal Medicine; Visit Provider Nurse Practitioner
DX: K59.04 Chronic idiopathic constipation (principal); R11.2 Nausea with vomiting, unspecified; R10.9 Unspecified abdominal pain; K75.81 Nonalcoholic steatohepatitis (NASH); K21.9 Gastro-esophageal reflux disease without esophagitis; K31.84 Gastroparesis
CPT/HCPCS: 99213

== ENCOUNTER → 2023-05-18 10:17 | Outpatient (BNVA) | payer OTHER, SELFPAY | PROVIDERS: PCP Internal Medicine; Visit Provider Nurse Practitioner | DX: K59.04 Chronic idiopathic constipation (principal); K75.81 Nonalcoholic steatohepatitis (NASH); K21.9 Gastro-esophageal reflux disease without esophagitis; K31.84 Gastroparesis; R11.2 Nausea with vomiting, unspecified; R10.9 Unspecified abdominal pain | CPT/HCPCS: 99212 ==

== ENCOUNTER 2023-06-12 07:23 | Outpatient (REF) | payer OTHER, SELFPAY ==
--- NOTE | ~2023-06-12 | US_ITS ---
EXAMINATION: US ABDOMEN COMPLETE CLINICAL INFORMATION: Unspecified abdominal pain. COMPARISON: X-ray abdomen 05/09/2023. CT abdomen 07/24/2022. Renal ultrasound 05/23/2022. Ultrasound abdomen limited 01/23/2022. X-ray KUB 12/11/2018. TECHNIQUE: Real-time imaging of the abdominal viscera. Limited visualization due to bowel gas. FINDINGS: PANCREAS: Limited visualization of pancreatic tail and head. Imaged portion of pancreatic body is unremarkable. ABDOMINAL AORTA: Nonaneurysmal. INFERIOR VENA CAVA: Visualized portions are normal. LIVER: Increased hepatic parenchymal heterogeneity and echogenicity could be associated with hepatocellular disease/hepatic steatosis and substantially limits visualization. Correlation with liver function tests and clinical exam recommended to determine further management. GALLBLADDER: No gallstones. No gallbladder wall thickening. COMMON BILE DUCT: Normal in caliber measuring 0.61 cm in diameter. RIGHT KIDNEY: No hydronephrosis. No renal calculi. Limited visualization. The kidney measures 10.4 cm in maximum dimension. LEFT KIDNEY: Redemonstration of a 2.3 x 2.4 x 2.1 cm echogenic mass lower pole left kidney previously 2 cm with fatty characteristics of an angiomyolipoma on CT scan of 07/27/2022. No hydronephrosis. No renal calculi. Limited visualization. The kidney measures 10.7 cm in maximum dimension. SPLEEN: Normal. The spleen measures 10.0 cm in maximum dimension. FREE FLUID: None. US/US abdomen complete IMPRESSION: 1. Increased hepatic parenchymal heterogeneity and echogenicity could be associated with hepatocellular disease/hepatic steatosis and substantially limits visualization. Correlation with liver function tests and clinical exam recommended to determine further management. 2. Redemonstration of a 2.3 x 2.4 x 2.1 cm echogenic mass lower pole left kidney previously 2 cm with fatty characteristics of a angiomyolipoma on CT scan of 07/27/2022, and 2.1 x 2.3 x 2.1 cm on ultrasound of 05/23/2022.
== END 2023-06-12 07:24 | disposition home or self-care (01) ==
LOC: HO.US 07:23
PROVIDERS: PCP Internal Medicine; Visit Provider Nurse Practitioner
DX: R10.9 Unspecified abdominal pain (principal); K75.81 Nonalcoholic steatohepatitis (NASH)
CPT/HCPCS: 76700

== ENCOUNTER 2023-07-25 13:36 | Outpatient (AMB) | payer OTHER, SELFPAY ==
[2023-07-25 13:38] VITALS: BP 110/80; PULSE 80; O2SAT 96; BMI 29.3
--- NOTE | 2023-07-25 13:38 | HO.NEPHOV ---
HPI HPI Comments History of Present Illness Details I had the privilege of seeing Melanie in 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 She had an ultrasound done in June which did not show any significant increase in the size of angiolipoma. She does not have any flank pain or hematuria. Her blood pressure has been well controlled on the current medications. She has no weight loss or night sweats. She denies any chest pain, shortness of breath, hemoptysis, paroxysmal nocturnal dyspnea, orthopnea or pedal edema. Her renal functions have been stable. [facility] Medical History Androgenic alopecia Angiomyolipoma of kidney Urinary incontinence Hair loss Skin change Physical exam Disc degeneration, lumbar Knee osteoarthritis Spondylosis of lumbar spine Retention of urine Essential hypertension Headache Polyarthralgia Skin lesion Physical exam Osteoarthritis Vomiting and diarrhea Normal colonoscopy Tachycardia Fibromyalgia Dyspepsia Surgical History Hx of colonoscopy (~2010) History of esophagogastroduodenoscopy (EGD) (~2017) History of breast biopsy (~2005) Tubal ligation status History of hysterectomy Family History Father No problems noted. Mother Pulmonary hypertension CVD (cardiovascular disease) HTN (hypertension) Maternal Aunt Breast cancer Maternal Aunt Breast cancer Paternal Aunt Lymphoma Paternal Uncle Gastric cancer Other Cancer Diabetes Urinary incontinence Social History Household Members: Family Housing: Apartment Alcohol intake: never Patient Tobacco Use Status: Never used Tobacco e-Cigarette/Vaping Use: Never Used Second Hand Smoke Exposure: No service: No Current occupational status: unemployed Cognitive needs: Yes Hearing needs: No Vision needs: Yes Vital Signs 07/25/23 13:38 Height 5 ft 6 in Weight 181 lb 8 oz BMI 29.3 BP 110/80 Blood Pressure Location Rt brachial Position Sitting Pulse 80 Pulse Source Pulse Oximeter Pulse Oximetry (%) 96 Oxygen Delivery Method Room Air Physical Exam Vital Signs: Last Vital Signs Pulse 80 07/25/23 13:38 BP 110/80 07/25/23 13:38 Pulse Ox 96 07/25/23 13:38 Oxygen Delivery Method Room Air 07/25/23 13:38 BMI result Body Mass Index 29.3 Const General: comfortable and no acute distress Orientation/consciousness: patient oriented x3 HEENT Head: Yes normocephalic Mouth: Normal oral and palatal mucosa present Eyes EOM: EOMs intact bilaterally Neck Neck: Yes supple Resp Auscultation: clear to auscultation bilaterally Cardio Jugular venous distension: no JVD Rate: regular rate GI Palpation (GI): Soft to palpation Auscultation: normal bowel sounds General: Yes no CVA tenderness Back/Spine/Pelvis Back: no CVA tenderness Skin General skin exam: no rashes or lesions noted Neuro General: patient oriented x3 and moves all extremities Extrem General: Yes no pedal edema Assessment & Plan Assessment & Plan (1) Angiomyolipoma of kidney: Code(s): D17.71 - Benign lipomatous neoplasm of kidney (2) Essential hypertension: Code(s): I10 - Essential (primary) hypertension Plan Melanie had an incidental finding of angiomyolipoma in the kidney when CT scan was done for abdominal pain and vomiting. She has no history of renal dysfunction, hematuria, flank pain, weight loss or night sweats. She had an ultrasound done this June which did not show any increase in size of the angiomyolipoma. If the angiomyolipoma is increasing in size, I plan to send her to Dr. Tin Espinoza in the future if it needs to be embolized. Her blood pressure is at goal. I did not make any medication changes today. All questions answered. Follow-up given. Orders: Orders Electrolytes Today D17.9 - Benign lipomatous neoplasm, unspecified Protein Creatinine Ratio, Ur Today D17.9 - Benign lipomatous neoplasm, unspecified Blood Urea Nitrogen Today D17.9 - Benign lipomatous neoplasm, unspecified Creatinine Today D17.9 - Benign lipomatous neoplasm, unspecified Coding Level of Care Code Est Pt Level 4 (81159) Diagnoses Angiomyolipoma of kidney D17.71 Essential hypertension I10 Results Reviewed Nephrology Results: Hgb 14.0 g/dl (12.0-16.0) 05/11/23 WBC 8.0 X10*3/uL (4.8-10.8) 05/11/23 Plt Count 372 X10*3/uL (160-400) 05/11/23 Sodium 142 mmol/L (135-145) 05/11/23 Potassium 4.0 mmol/L (3.3-5.1) 05/11/23 Chloride 105 mmol/L (96-108) 05/11/23 Carbon Dioxide 29 mmol/L (22-29) 05/11/23 BUN 14 mg/dL (9-16) 05/11/23 Creatinine 0.78 mg/dL (0.5-1.4) 05/11/23 Calcium 9.9 mg/dL (8.4-10.2) 05/11/23 Urine Protein Negative mg/dL (Neg-Trace) 05/11/23
== END 2023-07-25 13:56 | disposition home or self-care (01) ==
PROVIDERS: PCP Internal Medicine; Visit Provider Internal Medicine Nephrology
DX: D17.71 Benign lipomatous neoplasm of kidney (principal); I10 Essential (primary) hypertension
CPT/HCPCS: 99214

== ENCOUNTER → 2023-07-25 13:36 | Outpatient (BNVA) | payer OTHER, SELFPAY | PROVIDERS: PCP Internal Medicine; Visit Provider Internal Medicine Nephrology | DX: D17.71 Benign lipomatous neoplasm of kidney (principal); I10 Essential (primary) hypertension | CPT/HCPCS: 99212 ==

== ENCOUNTER 2023-10-15 15:21 | Outpatient (AMB) | payer OTHER, SELFPAY ==
[2023-10-15 15:26] VITALS: BP 132/80; BMI 30.5
--- NOTE | 2023-10-15 15:26 | MHC.PC.OV ---
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 Accompanied by: Daughter Allergies No Known Allergies Allergy (Verified 10/15/23 15:49) Medication List - Last Reconciled 10/15/23 by Mara Lorenzo MD bisacodyl (Dulcolax (bisacodyl)) 10 mg (2 x 5 mg) PO BEDTIME 30 days cyclobenzaprine 10 mg PO BEDTIME PRN 30 days diclofenac sodium 1% 2 grams topical BID PRN dicyclomine 20 mg PO QID PRN disposable gloves (Biobrane Gloves Medium) Use 1 pair of gloves as needed docusate sodium (Colace) 100 mg PO .DAILY WITH FOOD PRN famotidine (Pepcid) 40 mg PO BEDTIME gabapentin 600 mg PO BEDTIME 90 days hydrochlorothiazide 25 mg PO DAILY 90 days hydrocortisone 2.5% (Proctosol HC) 1 appl [place] BID incontinence pad, liner, disp As directed [lift chair As directed] linaclotide (Linzess) 290 mcg PO QAM 30 days metoclopramide HCl (Reglan) 10 mg PO QIDACHS metoprolol succinate ER 25 mg PO DAILY omeprazole 40 mg PO DAILY Shower Chair As directed simethicone 180 mg PO QID 30 days tramadol 50 mg PO DAILY PRN 30 days trazodone 50 mg PO BEDTIME PRN 90 days underpads (Certainty Underpads) Use 1 underpad once a day walker As directed [wipes As directed] Tobacco use date assessed: 10/15/23 Dental Screening Dental Screen Date: 10/15/23 Did you have a dental visit in the last 12 months?: Yes Did you have a dental problem in the last 6 months where you did not have access to dental care?: No Was dental information given to patient?: Patient has dentist HPI HPI Comments History of Present Illness Details This is a 58-year-old female with moderate major depression that comes accompanied by daughter for her physical exam. Depression still present with trazodone and I will change the medication. Mammograms are up-to-date. No need for Pap smear due to hysterectomy. Last colonoscopy was 2019 showing tubular adenoma next colonoscopy should be 2024. Complains of occasional chest pain that happens at rest. Complains of diffuse joint pain and walks with a cane for gait stability. [facility] Medical History (Updated 10/15/23 @ 16:51 by Mara Lorenzo MD) Diabetes Androgenic alopecia Angiomyolipoma of kidney Urinary incontinence Hair loss Skin change Physical exam Disc degeneration, lumbar Knee osteoarthritis Spondylosis of lumbar spine Retention of urine Essential hypertension Headache Polyarthralgia Skin lesion Physical exam Osteoarthritis Vomiting and diarrhea Normal colonoscopy Tachycardia Fibromyalgia Dyspepsia Surgical History Hx of colonoscopy (~2010) History of esophagogastroduodenoscopy (EGD) (~2017) History of breast biopsy (~2005) Tubal ligation status History of hysterectomy Family History Father No problems noted. Mother Pulmonary hypertension CVD (cardiovascular disease) HTN (hypertension) Maternal Aunt Breast cancer Maternal Aunt Breast cancer Paternal Aunt Lymphoma Paternal Uncle Gastric cancer Other Cancer Diabetes Urinary incontinence Social History Household Members: Family Housing: Apartment Alcohol intake: never Patient Tobacco Use Status: Never used Tobacco e-Cigarette/Vaping Use: Never Used Second Hand Smoke Exposure: No service: No Current occupational status: unemployed Cognitive needs: Yes Hearing needs: No Vision needs: Yes Questionnaire PHQ-9 Over the last 2 weeks, how often have you been bothered by any of the following problems? 1. Little interest or pleasure in doing things: more than half the days 2. Feeling down, depressed, or hopeless: more than half the days 3. Trouble falling or staying asleep, or sleeping too much: more than half the days 4. Feeling tired or having little energy: nearly every day 5. Poor appetite or overeating: not at all 6. Feeling bad about yourself - or that you are a failure or have let yourself or your family down: several days 7. Trouble concentrating on things, such as reading the newspaper or watching television: more than half the days 8. Moving or speaking so slowly that other people could have noticed. Or the opposite - being so fidgety or restless that you have been moving around a lot more than usual: several days 9. Thoughts that you would be better off or of hurting yourself in some way: not at all Total score: 13 Depression Screening Interpretation: Positive Depression Screening Follow-up: Existing condition, In treatment and Follow-up Visit Requested Depression Screening Done: Yes 36373 - PHQ-9 Billing: Yes Source: Developed by Drs. Peter Moreno, Yanna Madrigal, Christopher Lee and colleagues, with an educational ruslan from [employer]. Thrive Questionnaire Date Thrive assessed: 10/15/23 I am a: Patient What is your living situation today?: I have a steady place to live Within the past 12 months, did the food you bought not last and you didn't have the money to get more?: Never true Within the past 12 months, did you worry whether your food would run out before you got money to buy more?: Never true Do you have trouble paying for medicines?: No Do you have trouble getting transportation to medical appointments?: No Do you have trouble paying your heating and electricity bill?: No Do you have trouble taking care of your child, family member or friend?: No Do you have trouble with day-to-day activities such as bathing, preparing meals, shopping, managing finances, etc.?: No Are you currently unemployed and looking for a job?: No Are you interested in more education?: No Please select the resources that you would like help with: None Currently or been in a relationship where the following occur: no concerns reported THRIVE Score: 0 AUDIT C Alcohol Use Questionnaire (AUDIT-C) 1. How often do you have a drink containing alcohol?: Never Total Score: 0 Score Reviewed/Action Taken: No KAYLA-7 AMB Questionnaire KAYLA-7 Date KAYLA - 7 assessed: 10/15/23 Feeling nervous, anxious, or on edge: 1 = Several days Not being able to stop or control worryin = Not at all Worrying too much about different things: 1 = Several days Trouble relaxin = Not at all Being so restless that it is hard to sit still: 0 = Not at all Becoming easily annoyed or irritable: 1 = Several days Feeling afraid as if something awful might happen: 1 = Several days Total KAYLA-7 score (0-4 normal; 5-9 mild; 10-14 moderate; 15-21 severe): 4 Source: Developed by Drs. Peter Moreno, Yanna Madrigal, Christopher Lee and colleagues, with an educational ruslan from [employer]. KAYLA-7 Assessment Billing KAYLA-7 Assessment Tool: KAYLA-7 Assessment 38043 Review of Systems Const All systems reviewed & are unremarkable except as noted in HPI and below Eyes Reports no additional complaints, Denies change in vision and Denies other visual disturbances Card Denies chest pain at rest, Denies chest pain with activity, Denies edema, Denies irregular heart rhythm, Denies claudication, Denies dyspnea, Denies dyspnea on exertion, Denies orthopnea, Denies paroxysmal nocturnal dyspnea and Denies slow heart rate Resp Denies cough, Denies dyspnea and Denies dyspnea on exertion Musc Reports arthralgias Physical exam (Primary Care) Vital Signs: Last Vital Signs BP 132/80 10/15/23 15:26 BMI result Body Mass Index 30.5 Tobacco/Smoking Status: Tobacco use Status Tobacco use date assessed 10/15/23 10/15/23 15:31 Patient Tobacco Use Status Never used Tobacco 10/15/23 15:31 e-Cigarette/Vaping Use Never Used 10/15/23 15:31 PHQ-9: PHQ-9 Score PHQ-9: Total score 13 10/15/23 15:53 Depression Screening Interpretation: Positive Depression Screening Follow-up: Existing condition, In treatment and Follow-up Visit Requested Thrive Assessment: Date of Thrive Assessment Date Thrive assessed 10/15/23 10/15/23 15:35 Currently or been in a relationship where the following occur: no concerns reported Const Orientation/consciousness: patient oriented x3 Limitations: ambulation with cane HENMT Head: Yes normal to inspection, Yes normocephalic and Yes atraumatic Ears: external ears normal Eyes General: appearance normal, both eyes and all related structures Eyelids: Yes eyelids normal Conjunctivae: conjunctivae normal Neck Neck: Yes normal visual inspection and Yes supple Resp Effort & Inspection: normal respiratory effort Auscultation: clear to auscultation bilaterally Cardio Jugular venous distension: no JVD Rate: regular rate Rhythm: regular rhythm Heart sounds: S1 normal heart sound present and S2 normal heart sound present GI Inspection: Yes normal to inspection Palpation (GI): Soft to palpation and nontender Auscultation: normal bowel sounds Skin General skin exam: no rashes or lesions noted Neuro General: patient oriented x3 and no focal motor deficits Extrem General: Yes full ROM Assessment and Plan Assessment & Plan (1) Physical exam: Code(s): Z00.00 - Encounter for general adult medical examination without abnormal findings Plan: Repeat in a year (2) Moderate recurrent major depression: Code(s): F33.1 - Major depressive disorder, recurrent, moderate Plan: Discontinue trazodone. Start mirtazapine at bedtime. Orders: Orders US venous duplex LE LT Today M79.605 - Pain in left leg XR tibia fibula LT 2V Today M79.605 - Pain in left leg Comprehensive [place]. Panel Fast Today R73.01 - Impaired fasting glucose XR DEXA axial skeleton Today N95.9 - Unspecified menopausal and perimenopausal disorder Lipid Panel Today E78.5 - Hyperlipidemia, unspecified XR knee LT 2V Today M25.562 - Pain in left knee Medications: New gabapentin 400 mg PO BEDTIME 90 days 90 caps 0RF gabapentin 400 mg PO BID 90 days 180 caps 0RF mirtazapine 15 mg PO BEDTIME 30 days 30 tabs 3RF Changed From cyclobenzaprine 10 mg PO BEDTIME 30 days PRN 30 tabs 1RF muscle spasm To cyclobenzaprine 10 mg PO BID 30 days PRN 30 tabs 1RF muscle spasm Discontinued gabapentin Discontinued Reason: Patient Completed Course 600 mg PO BEDTIME 90 days 90 tabs 0RF Coding Level of Care Code Est Pt Prev Care 40-64y(77287) Diagnoses Physical exam Z00.00 Moderate recurrent major depression F33.1 Additional Codes KAYLA-7 Assessment Billing - KAYLA-7 Assessment Tool: KAYLA-7 Assessment 78512 ([id number]) Time Spent (min) 34
== END 2023-10-15 16:12 | disposition home or self-care (01) ==
PROVIDERS: Visit Provider Internal Medicine
DX: Z00.00 Encounter for general adult medical examination without abnormal findings (principal); F33.1 Major depressive disorder, recurrent, moderate
CPT/HCPCS: 99396

== ENCOUNTER 2023-10-15 16:33 | Outpatient (REF) | payer OTHER, SELFPAY ==
--- NOTE | ~2023-10-15 | XR_ITS ---
EXAMINATION: XR KNEE, LEFT CLINICAL INFORMATION: Pain in left knee COMPARISON: Same-day left tibia and fibula, left knee 07/30/2019 TECHNIQUE: AP and lateral views of the left knee. FINDINGS: No fracture or joint effusion. Alignment is anatomic. Joint spaces are maintained. Small peripheral osteophyte the lateral joint compartment. There is a 1.1 x 1.3 cm well-corticated ossific or calcific density inferior to the lower pole of the patella. This is consistent with a accessory ossification center. Unchanged compared to the prior study of 2019. This could be related to an old fracture. Quadriceps enthesophyte is noted. There is mild thickening of the infrapatellar tendon, as evident previously. XR/XR knee LT 2V IMPRESSION: 1. No acute bony abnormality. 2. 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
--- NOTE | ~2023-10-15 | US_ITS ---
EXAMINATION: US VENOUS ULTRASOUND WITH DOPPLER LOWER EXTREMITY, LEFT CLINICAL INFORMATION: Pain COMPARISON: None available. TECHNIQUE: Ultrasound of the deep veins is performed from the hip to the calf with compression sonography and color and pulse Doppler assessment. Spectral analysis with color-flow imaging is performed. FINDINGS: There is normal venous compression and respiratory variation. The visualized common femoral vein, superficial femoral vein, profunda femoral vein, popliteal vein, and the posterior tibial and peroneal veins show no evidence of deep venous thrombosis. There is normal respiratory variation in the right common femoral vein. US/US venous duplex LE LT IMPRESSION: No DVT demonstrated in the left lower extremity.
--- NOTE | ~2023-10-15 | XR_ITS ---
EXAMINATION: XR TIBIA AND FIBULA, LEFT CLINICAL INFORMATION: Pain in left leg COMPARISON: None available. TECHNIQUE: AP and lateral views of the left tibia and fibula were obtained. FINDINGS: The bones are intact. No fracture. No osseous lesions. Small ossific or calcific density seen posterior to the knee joint on the lateral view could represent a loose body within the joint. There is mild soft tissue swelling anterior to the upper tibial shaft on the lateral view. XR/XR tibia fibula LT 2V IMPRESSION: 1. No acute bony abnormality. 2. Question of loose body within the knee joint. 3. Mild soft tissue swelling anterior to the upper tibial shaft.
== END 2023-10-15 16:34 | disposition home or self-care (01) ==
LOC: HO.US 16:33
PROVIDERS: PCP Internal Medicine; Visit Provider Internal Medicine
DX: M79.605 Pain in left leg (principal); M25.562 Pain in left knee
CPT/HCPCS: 73560; 73590; 93971

== ENCOUNTER 2023-10-18 14:29 | Outpatient (AMB) | payer OTHER, SELFPAY ==
--- NOTE | 2023-10-18 14:45 | A.OFFVIS_ITS ---
Intake Visit Reasons: follow up/PVR Intake Note: Patient is Present for PVR/ Urology Med: None Antibiotic Allergy:None Blood Thinner: None Last PVR: 124ml's Todays PVR:0mls Agency Cashier Required: Yes Agency Cashier Name: FRANCOISE [facility] Allergies No Known Allergies Allergy (Verified 10/18/23 15:08) Medication List - Last Reconciled 10/18/23 by SRAVAN Pitts- bisacodyl (Dulcolax (bisacodyl)) 10 mg (2 x 5 mg) PO BEDTIME 30 days cyclobenzaprine 10 mg PO BID PRN 30 days diclofenac sodium 1% 2 grams topical BID PRN dicyclomine 20 mg PO QID PRN disposable gloves (Biobrane Gloves Medium) Use 1 pair of gloves as needed docusate sodium (Colace) 100 mg PO .DAILY WITH FOOD PRN famotidine (Pepcid) 40 mg PO BEDTIME gabapentin 400 mg PO BID 90 days hydrochlorothiazide 25 mg PO DAILY 90 days hydrocortisone 2.5% (Proctosol HC) 1 appl [place] BID incontinence pad, liner, disp As directed [lift chair As directed] linaclotide (Linzess) 290 mcg PO QAM 30 days metoclopramide HCl (Reglan) 10 mg PO QIDACHS metoprolol succinate ER 25 mg PO DAILY mirtazapine 15 mg PO BEDTIME 30 days omeprazole 40 mg PO DAILY Shower Chair As directed simethicone 180 mg PO QID 30 days tramadol 50 mg PO DAILY PRN 30 days trazodone 50 mg PO BEDTIME PRN 90 days underpads (Certainty Underpads) Use 1 underpad once a day walker As directed [wipes As directed] HPI Comments Details: Melanie is a pleasant 57-year-old Setswana-speaking female patient of Dr. Valle who was accompanied by her daughter at today's office visit. She has a past medical history of diabetes, angiolipoma of kidney, urinary incontinence, osteoarthritis, spondylosis of lumbar spine, incomplete bladder emptying, hypertension, headaches, polyarthralgia, fibromyalgia and dyspepsia. She presents to the office today for follow-up of her incomplete bladder emptying, stress incontinence, urinary frequency, and urinary urgency. In discussion with the patient today she reports since her last office visit here she continues with pelvic floor exercises at home and feels this has been helpful. Her postvoid residual has significantly decreased from previous office visit at 124 mL to today's office visit 0 mL. In office urinalysis results reviewed with the patient today. She does continue to report lower urinary tract symptoms of stress incontinence, urinary urgency, and urinary frequency however feels they are manageable. She also discusses feeling symptoms are improving with pelvic floor exercises at home. Discussed at length further treatment options with urodynamics for further assessment evaluation, medications, and or PT/pelvic floor therapy. She otherwise denies hematuria, dysuria, foul smelling urine, changes to urinary stream, flank pain, fever, and or chills. She is happy with her current voiding parameters. She otherwise offers no other issues or concerns at this time. [facility] Medical History Diabetes Androgenic alopecia Angiomyolipoma of kidney Urinary incontinence Hair loss Skin change Physical exam Disc degeneration, lumbar Knee osteoarthritis Spondylosis of lumbar spine Retention of urine Essential hypertension Headache Polyarthralgia Skin lesion Physical exam Osteoarthritis Vomiting and diarrhea Normal colonoscopy Tachycardia Fibromyalgia Dyspepsia Surgical History Hx of colonoscopy (~2010) History of esophagogastroduodenoscopy (EGD) (~2017) History of breast biopsy (~2005) Tubal ligation status History of hysterectomy Family History Father No problems noted. Mother Pulmonary hypertension CVD (cardiovascular disease) HTN (hypertension) Maternal Aunt Breast cancer Maternal Aunt Breast cancer Paternal Aunt Lymphoma Paternal Uncle Gastric cancer Other Cancer Diabetes Urinary incontinence Social History Household Members: Family Housing: Apartment Alcohol intake: never Patient Tobacco Use Status: Never used Tobacco e-Cigarette/Vaping Use: Never Used Second Hand Smoke Exposure: No service: No Current occupational status: unemployed Cognitive needs: Yes Hearing needs: No Vision needs: Yes Review of Systems Const Reports no additional complaints Eyes Reports no additional complaints ENT Reports no additional complaints Card Reports as per HPI Resp Reports no additional complaints GI Reports as per HPI Reports as per HPI Musc Reports as per HPI Neuro Reports as per HPI Psych Reports as per HPI Endo Reports as per HPI Daniel/Lymph Reports no additional complaints Aller/Immun Reports no additional complaints Physical Exam Const General: cooperative, healthy appearing, comfortable, no acute distress, well developed, alert and awake Nutritional Appearance: overweight Orientation/consciousness: patient oriented x3 Limitations: ambulation with cane HEENT Head: Yes normal to inspection, Yes normocephalic and Yes atraumatic Ears: hearing grossly normal bilaterally Eyes General: appearance normal, both eyes and all related structures Neck Neck: Yes normal visual inspection and Yes trachea midline Chest Chest palpation & inspection: normal inspection of the chest Resp Effort & Inspection: normal respiratory effort and able to speak in complete sentences Cardio Rate: regular rate GI Inspection: Yes normal to inspection General: Yes no CVA tenderness Back/Spine/Pelvis Back: no CVA tenderness Neuro General: patient oriented x3 Extrem General: Yes normal to inspection Psych Appearance: grossly normal and well kempt Mental Status: mental status grossly normal Speech and movement: Normal speech and movement present and Clear speech present Affect: normal affect Attitude: cooperative Thought process: Normal thought process present Thought content: Normal thought content present Insight: Fair insight present (Psych) Judgement: Fair judgement present (Psych) Office Procedures Post Void Residual Post Residual Void Post Void Residual (PVR): 0 [id number] Void Residual by ultrasound Results AMB Urinalysis, Automated UA Leukoctes 0 Raymond/uL Last Edit by CARLEEN Rollins on 10/18/23 14:56 UA Nitrite Negative Last Edit by CARLEEN Rlolins on 10/18/23 14:56 UA Urobilinogen 0.2 mg/dL Last Edit by CARLEEN Rollins on 10/18/23 14:5 6 UA Protein 0 mg/dL Last Edit by CARLEEN Rollins on 10/18/23 14:56 UA pH 6.0 Last Edit by CARLEEN Rollins on 10/18/23 14:56 UA Blood 0 Angel/uL Last Edit by CARLEEN Rollins on 10/18/23 14:56 UA Specific [place] 1.010 Last Edit by CARLEEN Rollins on 10/18/23 14: 56 UA Ketone Negative Last Edit by CARLEEN Rollins on 10/18/23 14:56 UA Bilirubin 0 mg/dL Last Edit by CARLEEN Rollins on 10/18/23 14:56 UA Glucose 0 mg/dL Last Edit by CARLEEN Rollins on 10/18/23 14:56 Results Reviewed Results Reviewed: Laboratory Last Values Urine pH (Auto) 6.0 10/18/23 14:48 Specific [place] (Auto) 1.010 10/18/23 14:48 Urine Protein (Auto) 0 mg/dL 10/18/23 14:48 Glucose (UA)(Auto) 0 mg/dL 10/18/23 14:48 Urine Ketones (Auto) Negative 10/18/23 14:48 Urine Blood (Auto) 0 Angel/uL 10/18/23 14:48 Urine Nitrite (Auto) Negative 10/18/23 14:48 Urine Bilirubin (Auto) 0 mg/dL 10/18/23 14:48 Urine Urobilinogen (Auto) 0.2 mg/dL 10/18/23 14:48 Leukocyte Esterase (Auto) 0 Raymond/uL 10/18/23 14:48 Assessment & Plan Assessment & Plan (1) Urinary incontinence: Code(s): R32 - Unspecified urinary incontinence Category: Medical (2) Urinary urgency: Code(s): R39.15 - Urgency of urination Category: Medical (3) Incomplete bladder emptying: Code(s): R33.9 - Retention of urine, unspecified Category: Medical Plan In office urinalysis results reviewed with the patient today. PVR 0 mLs Continue with pelvic floor exercises at home. Will continue with surveillance monitoring of lower urinary tract symptoms. Continue with double voiding. Discussed further treatment options at length. Discussed bladder triggers/irritants. Discussed importance of managing diabetes for improvement in urinary symptoms as well as overall health and well-being. Follow-up in 6 months with PVR; or sooner with any issues, concerns, and or questions. Orders: Orders AMB Post Void Residual by ultrasound Today R32 - Unspecified urinary incontinence AMB Urinalysis Automated Today Z13.9 - Encounter for screening, unspecified Patient Instructions: The patient had an opportunity to ask questions regarding the treatment plan. All questions were answered. Physical exam, labs, and imaging were discussed and reviewed in detail. As well as risks, benefits, and discussion of treatment choices. No major barriers to understanding were identified. The patient expressed understanding and agreement with the above treatment plan. The patient was made aware they should contact our office by phone for worsening of their current condition, the appearance of new symptoms, or with any questions or concerns. Compliance is encouraged with any medications and follow up testing that is ordered. It is a privilege to be allowed the opportunity to participate in? your urological care.? Again, if you have any questions or concerns If you have any questions or concerns please do not hesitate to contact me. The office is [phone]. This note is constructed using voice recognition software. While every effort has been made to ensure accuracy wildlife control operator errors may have been included. Yours sincerely, CLAUDIA Pitts Coding Level of Care Code Est Pt Level 3 (50254) Diagnoses Urinary incontinence R32 Urinary urgency R39.15 Incomplete bladder emptying R33.9 CPT Codes Post Residual Void - PVR CPT Code: 89635-Unjc Void Residual by ultrasound ([id number])
== END 2023-10-18 15:09 | disposition home or self-care (01) ==
PROVIDERS: PCP Internal Medicine; Visit Provider Nurse Practitioner Family
DX: R32 Unspecified urinary incontinence (principal); R39.15 Urgency of urination; R33.9 Retention of urine, unspecified; Z13.9 Encounter for screening, unspecified
CPT/HCPCS: 99213

== ENCOUNTER → 2023-10-18 14:29 | Outpatient (BNVA) | payer OTHER, SELFPAY | PROVIDERS: PCP Internal Medicine; Visit Provider Nurse Practitioner Family | DX: R32 Unspecified urinary incontinence (principal); R39.15 Urgency of urination; R33.9 Retention of urine, unspecified | CPT/HCPCS: 51798; 81003; 99212 ==

== ENCOUNTER 2023-11-02 14:12 | Outpatient (REF) | payer OTHER, SELFPAY ==
--- NOTE | ~2023-11-02 | MM_ITS ---
EXAMINATION: MM SCREENING DIGITAL BREAST TOMOSYNTHESIS, BILATERAL CLINICAL INFORMATION: Screening. Asymptomatic. COMPARISON: Mammography: This study is compared with prior exams dating back to 2020. TECHNIQUE: Digital breast tomosynthesis is performed in both the craniocaudal and mediolateral oblique views along with computer-aided detection (CAD). Synthesized 2D images are generated from the tomosynthesis. FINDINGS: There are scattered areas of fibroglandular density (ACR BI-RADS breast composition Category b). There are no significant masses, abnormal calcifications, or other abnormalities. There are 3 tissue markers in the left breast from prior benign percutaneous biopsies. MM/MM tomosynthesis screening BI IMPRESSION: No mammographic evidence of malignancy. ASSESSMENT: BI-RADS BI-RADS 2 - Benign Findings RECOMMENDATION: Routine annual mammography screening. 1 year F/U This examination should not preclude the clinical evaluation of a suspicious palpable abnormality. This patient's information was entered into a reminder system with a target due date for their next mammogram.
== END 2023-11-02 14:13 | disposition home or self-care (01) ==
LOC: HO.MAMMO 14:12
PROVIDERS: PCP Internal Medicine; Visit Provider Internal Medicine
DX: Z12.31 Encounter for screening mammogram for malignant neoplasm of breast (principal)
CPT/HCPCS: 77063; 77067

== ENCOUNTER → 2023-11-02 14:30 | Outpatient (BNV) | payer OTHER, SELFPAY | PROVIDERS: PCP Internal Medicine; Visit Provider Radiology Diagnostic Radiology | DX: Z12.31 Encounter for screening mammogram for malignant neoplasm of breast (principal) | CPT/HCPCS: 77063; 77067 ==

== ENCOUNTER 2023-11-16 07:39 | Outpatient (REF) | payer OTHER, SELFPAY ==
--- NOTE | ~2023-11-16 | XR_ITS ---
EXAMINATION: XR KNEE, RIGHT CLINICAL INFORMATION: Right knee pain COMPARISON: None available. TECHNIQUE: Single standing view of the knee AP FINDINGS: There is mild spurring along the medial femoral condyle and mild spurring of the tibial spines. No fracture or destructive lesion. A lateral view was not obtained. On this single view the joint spaces appear preserved. XR/XR knee RT 2V IMPRESSION: Degenerative spurring noted.
--- NOTE | ~2023-11-16 | XR_ITS ---
EXAMINATION: XR KNEE, LEFT CLINICAL INFORMATION: Pain COMPARISON: None TECHNIQUE: Two views of the left knee. FINDINGS: Spurring along the medial and lateral patellar facets noted. The AP view, demonstrates normal joint space preservation with mild spurring along the tibial spines, and medial tibial plateau. No fracture or destructive lesion. XR/XR knee LT 1V IMPRESSION: Generative change noted.
== END 2023-11-16 07:40 | disposition home or self-care (01) ==
LOC: HO.HOSX 07:39
PROVIDERS: Visit Provider Physician Assistant
DX: M17.12 Unilateral primary osteoarthritis, left knee (principal); M25.561 Pain in right knee
CPT/HCPCS: 73560; 99202

== ENCOUNTER 2023-11-16 08:42 | Outpatient (AMB) | payer OTHER, SELFPAY ==
--- NOTE | 2023-11-16 08:49 | MHC.OFFVIS ---
Intake Visit Reasons: N/P left knee pain Intake Note: Melanie a 58 year old female who presents today as a new patient for an evaluation of left knee pain. Patient reports pain has been present for a few years and is located on her whole knee. Seen by rheumatology for bilateral knees, she has tried and failed PT. Her knees frequently give out with her left knee being the worse. She states she feels like she is going to fall when she walks. Hx of fibromyalgia. Allergies No Known Allergies Allergy (Verified 11/16/23 08:50) Medication List - Last Reconciled 11/16/23 by Flaco Felder PA-C bisacodyl (Dulcolax (bisacodyl)) 10 mg (2 x 5 mg) PO BEDTIME 30 days cyclobenzaprine 10 mg PO BID PRN 30 days diclofenac sodium 1% 2 grams topical BID PRN dicyclomine 20 mg PO QID PRN disposable gloves (Biobrane Gloves Medium) Use 1 pair of gloves as needed docusate sodium (Colace) 100 mg PO .DAILY WITH FOOD PRN famotidine (Pepcid) 40 mg PO BEDTIME gabapentin 400 mg PO BID 90 days hydrochlorothiazide 25 mg PO DAILY 90 days hydrocortisone 2.5% (Proctosol HC) 1 appl [place] BID incontinence pad, liner, disp As directed [lift chair As directed] linaclotide (Linzess) 290 mcg PO QAM 30 days metoclopramide HCl (Reglan) 10 mg PO QIDACHS metoprolol succinate ER 25 mg PO DAILY mirtazapine 15 mg PO BEDTIME 30 days omeprazole 40 mg PO DAILY Shower Chair As directed simethicone 180 mg PO QID 30 days tramadol 50 mg PO DAILY PRN 30 days underpads (Certainty Underpads) Use 1 underpad once a day walker As directed [wipes As directed] HPI HPI N/P left knee pain : Details: 58-year-old female who presents to the office today with an educational interpreter for an evaluation of left knee pain. She was seen by rheumatology for her bilateral knees where she was referred to physical therapy that provided no relief. She states pain, locking and weakness and in her whole knee that comes with standing and ambulation. She also reports instability and her knee frequently gives out that is worse on her left knee. She has a history of diabetes. Her sugar levels are well controlled. [facility] Medical History Diabetes Androgenic alopecia Angiomyolipoma of kidney Urinary incontinence Hair loss Skin change Physical exam Disc degeneration, lumbar Knee osteoarthritis Spondylosis of lumbar spine Retention of urine Essential hypertension Headache Polyarthralgia Skin lesion Physical exam Osteoarthritis Vomiting and diarrhea Normal colonoscopy Tachycardia Fibromyalgia Dyspepsia Surgical History Hx of colonoscopy (~2010) History of esophagogastroduodenoscopy (EGD) (~2017) History of breast biopsy (~2005) Tubal ligation status History of hysterectomy Family History Father No problems noted. Mother Pulmonary hypertension CVD (cardiovascular disease) HTN (hypertension) Maternal Aunt Breast cancer Maternal Aunt Breast cancer Paternal Aunt Lymphoma Paternal Uncle Gastric cancer Other Cancer Diabetes Urinary incontinence Social History Household Members: Family Housing: Apartment Alcohol intake: never Patient Tobacco Use Status: Never used Tobacco e-Cigarette/Vaping Use: Never Used Second Hand Smoke Exposure: No service: No Current occupational status: unemployed Cognitive needs: Yes Hearing needs: No Vision needs: Yes Review of Systems Const All systems reviewed & are unremarkable except as noted in HPI and below Physical Exam Const General: cooperative, healthy appearing, comfortable, no acute distress, well developed and alert Orientation/consciousness: patient oriented x3 HEENT Head: Yes normal to inspection, Yes normocephalic and Yes atraumatic Eyes General: appearance normal, both eyes and all related structures Resp Effort & Inspection: normal respiratory effort and able to speak in complete sentences Cardio Rate: regular rate Peripheral pulses: Peripheral pulses 2+ throughout GI Palpation (GI): Soft to palpation Skin Lesions: no lesions Rashes: no rashes Neuro General: patient oriented x3 Extrem Other: Left knee: Skin intact, no erythema or joint effusion. Tenderness along the medial joint line. Full ROM with crepitus. Positive Yifan?s. No ligamentous laxity. NVI. ? Results Reviewed Results Reviewed: Xrays were obtained in the office today and personally reviewed by me of the left knee show mild medial compartment oa Assessment & Plan Assessment & Plan (1) Osteoarthritis of left knee: Code(s): M17.12 - Unilateral primary osteoarthritis, left knee Category: Medical Qualifiers: Osteoarthritis type: primary Qualified Code(s): M17.12 - Unilateral primary osteoarthritis, left knee (2) Patellofemoral arthritis of left knee: Code(s): M17.12 - Unilateral primary osteoarthritis, left knee Category: Medical Plan We discussed options which include PT, NSAIDs and injections. The patient will defer on the injection today and proceed with PT and NSAIDs. He was also given a prescription of Celebrex which was sent to his pharmacy. If symptoms persist or worsen, patient will call back to discuss a cortisone injection, otherwise follow-up as needed. Orders: Orders XR knee RT 2V Today M25.569 - Pain in unspecified knee PT Evaluation and Treatment Today M17.12 - Unilateral primary osteoarthritis, left knee XR knee LT 1V Today M25.562 - Pain in left knee Medications: New celecoxib (Celebrex) 200 mg PO BID 60 caps 3RF 30 days Patient Instructions: Scribed for Flaco Felder PA-C, by Rahul Packer medical numerical control operator, on 11/16/2023 at 9:00 AM EST.? I, Flaco Felder PA-C, have personally reviewed and agree with the information entered by the scribe. Coding Level of Care Code New Pt Level 3 (44182) Diagnoses Primary osteoarthritis of left knee M17.12 Osteoarthritis type: primary Patellofemoral arthritis of left knee M17.12
== END 2023-11-16 10:00 | disposition home or self-care (01) ==
PROVIDERS: PCP Internal Medicine; Visit Provider Physician Assistant
DX: M17.12 Unilateral primary osteoarthritis, left knee (principal)
CPT/HCPCS: 99203

== ENCOUNTER 2023-11-20 08:00 | Outpatient (REF) | payer OTHER, SELFPAY ==
--- NOTE | ~2023-11-20 | MM_ITS ---
EXAMINATION: BONE DENSITOMETRY CLINICAL INDICATION: Unspecified menopausal and perimenopausal disorder. COMPARISON: This is the patient's baseline examination. TECHNIQUE: Using a [employer] DXA System (software version: 13.1) manufactured by [employer], dual-energy x-ray absorptiometry was performed of the lumbar spine and left hip. The images are of good technical quality. Summary results are attached. FINDINGS: LEFT FEMUR, NECK: BMD 1.019 g/cm2, Z-score 0.7, T-score -0.1, normal. LEFT FEMUR, TOTAL: BMD 0.978 g/cm2, Z-score 0.2, T-score -0.2, normal. AP SPINE L1-L4: BMD 1.293 g/cm2, Z-score 1.5, T-score 0.9, normal. IDENTIFIED RISK FACTORS: Menopause, hysterectomy. HISTORY OF FRACTURE: None listed. MEDICATIONS: None listed. MM/XR DEXA axial skeleton IMPRESSION: 1. DIAGNOSIS: Normal bone density based on the lowest T-score value of -0.2 in the total femur applying World Health Organization criteria. 2. 10-YEAR FRACTURE RISK PREDICTION, FRAX: According to the guidelines, FRAX calculation should only be performed on patients in the osteopenia bone density category. Therefore, FRAX was not performed on this patient. 3. Treatment Recommendations: NOF guidelines recommend consideration for treatment in postmenopausal women and men age 50 and older presenting with the following: -A hip or vertebral (clinical or morphometric) fracture. -T-score less than or equal to -2.5 at the femoral neck or spine after appropriate evaluation to exclude secondary causes. -Low bone mass at the hip or spine and a 10-year fracture probability by FRAX of greater than or equal to 3% for hip fracture or greater than or equal to 20% for major osteoporotic fracture based on the [place] adapted WHO algorithm. 4. Other Recommendations: All treatment decisions require clinical judgment and consideration of individual patient factors, including patient preferences, comorbidities, previous drug use, risk factors not captured in the FRAX model (e.g. frailty, falls, vitamin D deficiency, increased bone turnover, interval significant decline in bone density) and possible under or overestimation of fracture risk by FRAX. FUTURE SCAN RECOMMENDATION: People with diagnosed cases of osteoporosis or at high risk for fracture should have regular bone mineral density tests. For patients eligible for Medicare, routine testing is allowed once every 2 years. The testing frequency can be increased to one year for patients who have rapidly progressing disease, those who are receiving or discontinuing medical therapy to restore bone mass, or have additional risk factors.
== END 2023-11-20 08:01 | disposition home or self-care (01) ==
LOC: HO.MAMMO 08:00
PROVIDERS: PCP Internal Medicine; Visit Provider Internal Medicine
DX: Z13.820 Encounter for screening for osteoporosis (principal); Z78.0 Asymptomatic menopausal state
CPT/HCPCS: 77080

== ENCOUNTER 2023-12-20 14:02 | Outpatient (AMB) | payer OTHER, SELFPAY ==
--- NOTE | 2023-12-20 14:25 | A.OFFVIS_ITS ---
Vital Signs 12/20/23 14:29 Height 5 ft 6 in Weight 195 lb 8.8 oz BMI 31.6 BP 130/80 Blood Pressure Location Rt brachial Position Sitting Pulse 68 Pulse Source Pulse Oximeter Pulse Oximetry (%) 97 Oxygen Delivery Method Room Air Intake Visit Reasons: OA/Fibromyalgia/lm Intake Note: Patient presents for OA/Fibromyalgia. Wort Extractor Required: Yes Wort Extractor Services: Wort Extractor Present Wort Extractor Name: Liane [id number] Allergies No Known Allergies Allergy (Verified 11/16/23 08:50) Medication List - Last Reconciled 12/20/23 by Eileen Womack MD bisacodyl (Dulcolax (bisacodyl)) 10 mg (2 x 5 mg) PO BEDTIME 30 days celecoxib (Celebrex) 200 mg PO BID 30 days cyclobenzaprine 10 mg PO BID PRN 30 days diclofenac sodium 1% 2 grams topical BID PRN dicyclomine 20 mg PO QID PRN disposable gloves (Biobrane Gloves Medium) Use 1 pair of gloves as needed docusate sodium (Colace) 100 mg PO .DAILY WITH FOOD PRN famotidine (Pepcid) 40 mg PO BEDTIME gabapentin 400 mg PO BID 90 days hydrochlorothiazide 25 mg PO DAILY 90 days hydrocortisone 2.5% (Proctosol HC) 1 appl [place] BID incontinence pad, liner, disp As directed [lift chair As directed] linaclotide (Linzess) 290 mcg PO QAM 30 days metoclopramide HCl (Reglan) 10 mg PO QIDACHS metoprolol succinate ER 25 mg PO DAILY mirtazapine 15 mg PO BEDTIME 30 days omeprazole 40 mg PO DAILY Shower Chair As directed simethicone 180 mg PO QID 30 days tramadol 50 mg PO DAILY PRN 30 days underpads (Certainty Underpads) Use 1 underpad once a day walker As directed [wipes As directed] HPI Comments Details: This is a 58-year-old female with fibromyalgia who presents for follow-up. She was last seen by Laura Ferrera about a year ago. She continues to have diffuse pain, body aches. She stated that she had a sleep study about 5 years ago and it was unremarkable. Takes gabapentin nightly. She has done PT for her fibromyalgia and it provided little relief PFSH Medical History Diabetes Androgenic alopecia Angiomyolipoma of kidney Urinary incontinence Hair loss Skin change Physical exam Disc degeneration, lumbar Knee osteoarthritis Spondylosis of lumbar spine Retention of urine Essential hypertension Headache Polyarthralgia Skin lesion Physical exam Osteoarthritis Vomiting and diarrhea Normal colonoscopy Tachycardia Fibromyalgia Dyspepsia Surgical History Hx of colonoscopy (~2010) History of esophagogastroduodenoscopy (EGD) (~2017) History of breast biopsy (~2005) Tubal ligation status History of hysterectomy Family History Father No problems noted. Mother Pulmonary hypertension CVD (cardiovascular disease) HTN (hypertension) Maternal Aunt Breast cancer Maternal Aunt Breast cancer Paternal Aunt Lymphoma Paternal Uncle Gastric cancer Other Cancer Diabetes Urinary incontinence Social History Household Members: Family Housing: Apartment Alcohol intake: never Patient Tobacco Use Status: Never used Tobacco e-Cigarette/Vaping Use: Never Used Second Hand Smoke Exposure: No service: No Current occupational status: unemployed Cognitive needs: Yes Hearing needs: No Vision needs: Yes Review of Systems ENT Reports neck pain Musc Reports back pain, Reports myalgias, Reports arthralgias, Reports neck pain and Reports stiffness Physical Exam Vital Signs: Last Vital Signs Pulse 68 12/20/23 14:29 BP 130/80 12/20/23 14:29 Pulse Ox 97 12/20/23 14:29 Oxygen Delivery Method Room Air 12/20/23 14:29 BMI result Body Mass Index 31.6 Const General: cooperative, healthy appearing and comfortable Nutritional Appearance: obese Orientation/consciousness: patient oriented x3 Limitations: no limitations HEENT Head: Yes normocephalic and Yes atraumatic Mouth: moist mucous membranes Resp Effort & Inspection: normal respiratory effort and able to speak in complete sentences Auscultation: clear to auscultation bilaterally Cardio Rate: regular rate Neuro General: patient oriented x3 Extrem Other: Multiple fibromyalgia tender points No active synovitis Normal nailfold capillaroscopy Assessment & Plan Assessment & Plan (1) Fibromyalgia: Code(s): M79.7 - Fibromyalgia Category: Medical Plan: This is a 58-year-old female with fibromyalgia who presents for follow-up. I do not see any signs suggestive of an autoimmune rheumatic disease upon my evaluation Previous serologies were negative Discussed management of fibromyalgia with patient. Is a noninflammatory, non- autoimmune central afferent processing disorder leading to a diffuse pain syndrome. Try to follow sleep hygiene practices. Patient would benefit from increased physical activity, either through formal physical therapy or by joining a gym. Advised patient that she should start activity slowly and increase as tolerated. Consider low-impact exercises such as walking, swimming, aqua therapy stretching, yoga. She is on gabapentin prescribed by her PCP with some relief. Follow-up with PCP Plan I spent 18 minutes reviewing patient's chart, evaluating patient, counseling patient and documenting in the chart Coding Level of Care Code Est Pt Level 3 (27166) Diagnoses Fibromyalgia M79.7
[2023-12-20 14:29] VITALS: BP 130/80; PULSE 68; O2SAT 97; BMI 31.6
== END 2023-12-20 14:58 | disposition home or self-care (01) ==
PROVIDERS: PCP Internal Medicine; Visit Provider Student in an Organized Health Care Education/Training Program
DX: M79.7 Fibromyalgia (principal)
CPT/HCPCS: 99213

== ENCOUNTER → 2023-12-20 14:02 | Outpatient (BNVA) | payer OTHER, SELFPAY | PROVIDERS: PCP Internal Medicine; Visit Provider Student in an Organized Health Care Education/Training Program | DX: M79.7 Fibromyalgia (principal) | CPT/HCPCS: 99212 ==

== ENCOUNTER 2024-02-20 07:37 | Outpatient (REF) | payer OTHER, SELFPAY ==
[2024-02-20 08:31] LABS: Alanine Aminotransferase 13 U/L (0-31); Albumin Level 4.3 g/dL (3.5-5.0); Alkaline Phosphatase 58 U/L (39-117); Anion Gap 14 (12-20); Aspartate Amino Transferase 9 U/L (5-31); Bilirubin Total 0.3 mg/dL (0.0-1.0); Blood Urea Nitrogen 15 mg/dL (9-16); Carbon Dioxide 27 mmol/L (22-29); Chloride 109 mmol/L (96-108); Cholesterol 271 mg/dL (<200); Estimated Glomerular Filt Rate > 60; Glucose Fasting 128 mg/dL (60-99); HDL Cholesterol 48 mg/dL (>40); LDL Cholesterol Calculated 193 mg/dL (<100); Potassium 4.6 mmol/L (3.3-5.1); Sodium 145 mmol/L (135-145); Total Protein 7.5 g/dL (6.5-8.0); Triglycerides 152 mg/dL (<150)
== END 2024-02-20 07:38 | disposition home or self-care (01) ==
LOC: HO.LAB 07:37
PROVIDERS: PCP Internal Medicine; Visit Provider Internal Medicine
DX: R73.01 Impaired fasting glucose (principal); E78.5 Hyperlipidemia, unspecified
CPT/HCPCS: 36415; 80053; 80061

== ENCOUNTER 2024-02-27 15:24 | Outpatient (AMB) | payer OTHER, SELFPAY ==
--- NOTE | 2024-02-27 15:34 | A.OFFPC_ITS ---
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 Mail Processing Equipment Mechanic Required: No Accompanied by: Self / Same As Patient Allergies No Known Allergies Allergy (Verified 02/27/24 15:53) Medication List - Last Reconciled 02/27/24 by Mara Lorenzo MD atorvastatin 40 mg PO BEDTIME 90 days bisacodyl (Dulcolax (bisacodyl)) 10 mg (2 x 5 mg) PO BEDTIME 30 days celecoxib (Celebrex) 200 mg PO BID 30 days cyclobenzaprine 10 mg PO BID PRN 30 days diclofenac sodium 1% 2 grams topical BID PRN dicyclomine 20 mg PO QID PRN disposable gloves (Biobrane Gloves Medium) Use 1 pair of gloves as needed docusate sodium (Colace) 100 mg PO .DAILY WITH FOOD PRN famotidine (Pepcid) 40 mg PO BEDTIME gabapentin 400 mg PO BID 90 days hydrochlorothiazide 25 mg PO DAILY 90 days hydrocortisone 2.5% (Proctosol HC) 1 appl [place] BID incontinence pad, liner, disp As directed [lift chair As directed] linaclotide (Linzess) 290 mcg PO QAM 30 days metoclopramide HCl (Reglan) 10 mg PO QIDACHS metoprolol succinate ER 25 mg PO DAILY mirtazapine 15 mg PO BEDTIME 30 days omeprazole 40 mg PO DAILY Shower Chair As directed simethicone 180 mg PO QID 30 days tramadol 50 mg PO DAILY PRN 30 days underpads (Certainty Underpads) Use 1 underpad once a day walker As directed [wipes As directed] Tobacco use date assessed: 10/15/23 Dental Screening Dental Screen Date: 10/15/23 HPI HPI Comments History of Present Illness Details This is a 58 year old female with hypertension, fibromyalgia, impaired fasting glucose, mild major depression and obesity that comes today for follow up on her conditions. BP stable. She also has dyslipidemia and I will start her on statin. A1c shows prediabetes and labs will be repeated in 4 months. Denies any polyuria, polydipsia or unintentional weight loss. Depression still present and joint pain also still present. She has cardiovascular risk by having hypertension and dyslipidemia dn this is why I will start her on Wegovy. Side effects were advised. [facility] Medical History (Updated 02/27/24 @ 16:02 by Mara Lorenzo MD) Diabetes Androgenic alopecia Angiomyolipoma of kidney Urinary incontinence Hair loss Skin change Physical exam Disc degeneration, lumbar Knee osteoarthritis Spondylosis of lumbar spine Retention of urine Essential hypertension Headache Polyarthralgia Skin lesion Physical exam Osteoarthritis Vomiting and diarrhea Normal colonoscopy Tachycardia Fibromyalgia Dyspepsia Surgical History Hx of colonoscopy (~2010) History of esophagogastroduodenoscopy (EGD) (~2017) History of breast biopsy (~2005) Tubal ligation status History of hysterectomy Family History Father No problems noted. Mother Pulmonary hypertension CVD (cardiovascular disease) HTN (hypertension) Maternal Aunt Breast cancer Maternal Aunt Breast cancer Paternal Aunt Lymphoma Paternal Uncle Gastric cancer Other Cancer Diabetes Urinary incontinence Social History Household Members: Family Housing: Apartment Alcohol intake: never Patient Tobacco Use Status: Never used Tobacco e-Cigarette/Vaping Use: Never Used Second Hand Smoke Exposure: No service: No Current occupational status: unemployed Cognitive needs: Yes Hearing needs: No Vision needs: Yes Questionnaire Thrive Questionnaire Date Thrive assessed: 10/15/23 Are you currently unemployed and looking for a job?: No KAYLA-7 AMB Questionnaire KAYLA-7 Date KAYLA - 7 assessed: 10/15/23 Source: Developed by Drs. Peter Moreno, Yanna Madrigal, Christopher Lee and colleagues, with an educational ruslan from [employer]. Review of Systems Const All systems reviewed & are unremarkable except as noted in HPI and below Card Denies chest pain at rest, Denies chest pain with activity, Denies edema, Denies irregular heart rhythm, Denies claudication, Denies dyspnea, Denies dyspnea on exertion, Denies orthopnea, Denies paroxysmal nocturnal dyspnea and Denies slow heart rate Resp Denies cough, Denies dyspnea and Denies dyspnea on exertion GI Denies abdominal pain, Denies change in bowel habits, Denies excessive flatus, Denies nausea and Denies vomiting Denies urinary incontinence, Denies urinary hesitancy and Denies urinary urgency Musc Denies atrophy, Denies deformity and Denies limited range of motion Physical exam (Primary Care) Vital Signs: Last Vital Signs BP 126/80 02/27/24 15:36 BMI result Body Mass Index 30.2 BMI Assessment/Plan discussion: High BMI High, discussed plan: lifestyle, weight reduction, dietary and physical activity Tobacco/Smoking Status: Tobacco use Status Tobacco use date assessed 10/15/23 02/27/24 15:34 Patient Tobacco Use Status Never used Tobacco 02/27/24 15:34 e-Cigarette/Vaping Use Never Used 02/27/24 15:34 Thrive Assessment: Date of Thrive Assessment Date Thrive assessed 10/15/23 02/27/24 15:34 Resp Effort & Inspection: normal respiratory effort Auscultation: clear to auscultation bilaterally Cardio Jugular venous distension: no JVD Rate: regular rate Rhythm: regular rhythm Heart sounds: S1 normal heart sound present and S2 normal heart sound present Extrem General: Yes full ROM Results AMB Hemoglobin A1c AMB Hemoglobin A1c 6.3 % Last Edit by CARLEEN Bello on 02/27/24 15:5 0 Results Reviewed Results Reviewed: Laboratory Last Values Hgb A1c (Clinic) 6.3 % (4.0-6.0) H 02/27/24 15:33 Assessment and Plan Assessment & Plan (1) Moderate recurrent major depression: Code(s): F33.1 - Major depressive disorder, recurrent, moderate Plan: Continue mirtazapine. (2) Essential hypertension: Code(s): I10 - Essential (primary) hypertension Plan: Continue HCTZ. BP goal is equal or less than 130/80. (3) Fibromyalgia: Code(s): M79.7 - Fibromyalgia Plan: Continue gabapentin. (4) Impaired fasting glucose: Code(s): R73.01 - Impaired fasting glucose Plan: Continue low carbohydrate diet. Repeat fasting blood glucose in 4 months. (5) Obesity (BMI 30-39.9): Code(s): E66.9 - Obesity, unspecified Plan: Start Wegovy. BMI goal is less than 30. Orders: Orders AMB Hemoglobin A1c Today R73.01 - Impaired fasting glucose Comprehensive [place]. Panel Fast 4 Months M17.12 - Unilateral primary osteoarthritis, left knee Lipid Panel 4 Months E78.5 - Hyperlipidemia, unspecified Medications: New semaglutide (weight loss) (Sarah) administer weeks 1 through 4 of therapy 0.25 mg (0.5 mL) subcut QWEEK 2 mL 0RF 4 weeks E66.9 - Obesity, unspecified Refilled atorvastatin 40 mg PO BEDTIME 90 tabs 1RF 90 days Coding Level of Care Code Est Pt Level 4 (86847) Complex EM visit Add On G2211 Diagnoses Moderate recurrent major depression F33.1 Essential hypertension I10 Fibromyalgia M79.7 Impaired fasting glucose R73.01 Obesity (BMI 30-39.9) E66.9 Time Spent (min) 23
[2024-02-27 15:36] VITALS: BP 126/80; BMI 30.2
== END 2024-02-27 16:06 | disposition home or self-care (01) ==
PROVIDERS: PCP Internal Medicine; Visit Provider Internal Medicine
DX: F33.1 Major depressive disorder, recurrent, moderate (principal); I10 Essential (primary) hypertension; M79.7 Fibromyalgia; R73.01 Impaired fasting glucose; E66.9 Obesity, unspecified

== ENCOUNTER → 2024-02-27 15:24 | Outpatient (BNVA) | payer OTHER, SELFPAY | PROVIDERS: PCP Internal Medicine; Visit Provider Internal Medicine | DX: R73.01 Impaired fasting glucose (principal); F33.1 Major depressive disorder, recurrent, moderate; I10 Essential (primary) hypertension; M79.7 Fibromyalgia; E66.9 Obesity, unspecified | CPT/HCPCS: 83036; 99212 ==

== ENCOUNTER 2024-03-10 15:32 | Outpatient (AMB) | payer OTHER, SELFPAY ==
--- NOTE | 2024-03-10 15:56 | HO.NEPHOV_ITS ---
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 She had an ultrasound done which did not show any significant increase in the size of angiolipoma. She does not have any flank pain or hematuria. Her blood pressure has been labile but better controlled on the current medications. She has no weight loss or night sweats. She denies any chest pain, shortness of breath, hemoptysis, paroxysmal nocturnal dyspnea, orthopnea or pedal edema but gets intermittent palpitations. Her renal functions have been stable. [facility] Medical History Diabetes Androgenic alopecia Angiomyolipoma of kidney Urinary incontinence Hair loss Skin change Physical exam Disc degeneration, lumbar Knee osteoarthritis Spondylosis of lumbar spine Retention of urine Essential hypertension Headache Polyarthralgia Skin lesion Physical exam Osteoarthritis Vomiting and diarrhea Normal colonoscopy Tachycardia Fibromyalgia Dyspepsia Surgical History Hx of colonoscopy (~2010) History of esophagogastroduodenoscopy (EGD) (~2017) History of breast biopsy (~2005) Tubal ligation status History of hysterectomy Family History Father No problems noted. Mother Pulmonary hypertension CVD (cardiovascular disease) HTN (hypertension) Maternal Aunt Breast cancer Maternal Aunt Breast cancer Paternal Aunt Lymphoma Paternal Uncle Gastric cancer Other Cancer Diabetes Urinary incontinence Social History Household Members: Family Housing: Apartment Alcohol intake: never Patient Tobacco Use Status: Never used Tobacco e-Cigarette/Vaping Use: Never Used Second Hand Smoke Exposure: No service: No Current occupational status: unemployed Cognitive needs: Yes Hearing needs: No Vision needs: Yes Review of Systems Const All systems reviewed & are unremarkable except as noted in HPI and below Physical Exam Vital Signs: Last Vital Signs Pulse 82 03/10/24 15:57 BP 138/88 03/10/24 15:57 Pulse Ox 96 03/10/24 15:57 Oxygen Delivery Method Room Air 03/10/24 15:57 BMI result Body Mass Index 30.3 Const General: comfortable and no acute distress Orientation/consciousness: patient oriented x3 HEENT Head: Yes normocephalic Mouth: Normal oral and palatal mucosa present Eyes EOM: EOMs intact bilaterally Neck Neck: Yes supple Resp Auscultation: clear to auscultation bilaterally Cardio Jugular venous distension: no JVD Rate: regular rate GI Palpation (GI): Soft to palpation Auscultation: normal bowel sounds General: Yes no CVA tenderness Back/Spine/Pelvis Back: no CVA tenderness Skin General skin exam: no rashes or lesions noted Neuro General: patient oriented x3 and moves all extremities Extrem General: Yes no pedal edema Results Reviewed Nephrology Results: Sodium 145 mmol/L (135-145) 02/20/24 Potassium 4.6 mmol/L (3.3-5.1) 02/20/24 Chloride 109 mmol/L (96-108) H 02/20/24 Carbon Dioxide 27 mmol/L (22-29) 02/20/24 BUN 15 mg/dL (9-16) 02/20/24 Creatinine 0.88 mg/dL (0.5-1.4) 02/20/24 Calcium 10.0 mg/dL (8.4-10.2) 02/20/24 Assessment & Plan Assessment & Plan (1) Essential hypertension: Code(s): I10 - Essential (primary) hypertension Category: Medical (2) Angiolipoma: Code(s): D17.9 - Benign lipomatous neoplasm, unspecified Category: Medical Plan Melanie had an incidental finding of angiomyolipoma in the kidney when CT scan was done for abdominal pain and vomiting. She has no history of renal dysfunction, hematuria, flank pain, weight loss or night sweats. She had an ultrasound done which did not show any increase in size of the angiomyolipoma. If the angiomyolipoma is increasing in size, I plan to send her to Dr. Tin Espinoza in the future if it needs to be embolized. Her blood pressure is labile. I increased her metoprolol to 50 mg daily. I did not make any other medication changes today. All questions answered. Follow-up given Orders: Orders Creatinine Today I10 - Essential (primary) hypertension Blood Urea Nitrogen Today I10 - Essential (primary) hypertension Electrolytes Today I10 - Essential (primary) hypertension Medications: Changed From metoprolol succinate ER 25 mg PO DAILY 30 tabs 6RF To metoprolol succinate ER 50 mg PO DAILY 30 days 30 tabs 6RF Coding Level of Care Code Est Pt Level 4 (95355) Diagnoses Essential hypertension I10 Angiolipoma D17.9
[2024-03-10 15:57] VITALS: BP 138/88; PULSE 82; O2SAT 96; BMI 30.3
== END 2024-03-10 16:22 | disposition home or self-care (01) ==
PROVIDERS: PCP Internal Medicine; Visit Provider Internal Medicine Nephrology
DX: I10 Essential (primary) hypertension (principal); D17.9 Benign lipomatous neoplasm, unspecified
CPT/HCPCS: 99214

== ENCOUNTER → 2024-03-10 15:32 | Outpatient (BNVA) | payer OTHER, SELFPAY | PROVIDERS: PCP Internal Medicine; Visit Provider Internal Medicine Nephrology | DX: I10 Essential (primary) hypertension (principal); D17.71 Benign lipomatous neoplasm of kidney | CPT/HCPCS: 99212 ==

== ENCOUNTER 2024-04-04 12:33 | Outpatient (AMB) | payer OTHER, SELFPAY ==
[2024-04-04 12:34] VITALS: BP 126/65; PULSE 67; BMI 29.9
--- NOTE | 2024-04-04 12:34 | A.OFFVIS_ITS ---
Vital Signs 04/04/24 12:34 Height 5 ft 6 in Weight 185 lb 3.013 oz BMI 29.9 BP 126/65 Blood Pressure Location Lt brachial Position Sitting Pulse 67 Intake Visit Reasons: Follow up Abdominal pain Intake Note: Melanie presents in the office as a follow up for abdominal pains. CC: She states that she is not having concerns and that this is just a follow up today. Clinical Rehabilitation Coordinator Required: Yes Allergies No Known Allergies Allergy (Verified 04/04/24 12:37) HPI HPI Follow up Abdominal pain: Details: Assessment & Plan (1) Chronic idiopathic constipation: Code(s): K59.04 - Chronic idiopathic constipation (2) Nausea and vomiting: Code(s): R11.2 - Nausea with vomiting, unspecified (3) Abdominal pain: Code(s): R10.9 - Unspecified abdominal pain (4) HILTON (nonalcoholic steatohepatitis): Comment: BASELINE LABS; 12/2018 alpha fetoprotein 2.5, ultrasound shows fatty replacement with no tumor, negative hepatitis a B and C screen, AST/ALT 17/43 with the rest the liver panel normal, TSH normal, negative autoimmune workup, ferritin 403. CURRENT LABS 04/16/23 the WBC 8.0 Hgb 14.0 Hct 42.7 Plt Count 372 Estimated GFR > 60 Hgb A1c (Clinic) 6.5 H Total Bilirubin 0.3 AST 10 ALT 19 Alkaline Phosphatase [address] ABD AND PELVIS 07/27/22 FINDINGS: LUNG BASES: Normal? LIVER, GALLBLADDER, BILIARY TREE: Enlarged fatty liver with fatty infiltration. Normal gallbladder. No biliary duct dilatation.? PANCREAS: Normal? SPLEEN: Normal? ADRENAL GLANDS AND KIDNEYS: Normal adrenal glands. Stable 2 cm fatty lesion exophytic to the lower pole of the left kidney suggestive angiomyolipoma.? BOWEL LOOPS: Normal. Small umbilical hernia containing fat. LYMPH NODES: Normal. VASCULAR: Unremarkable. BONES: Degenerative changes of the spine.? CT/CT abdomen wo IV con IMPRESSION: Stable 2 cm fatty lesion exophytic to the lower pole of the left kidney suggestive of a benign angiomyolipoma. Enlarged fatty liver. Code(s): K75.81 - Nonalcoholic steatohepatitis (HILTON) (5) GERD (gastroesophageal reflux disease): Code(s): K21.9 - Gastro-esophageal reflux disease without esophagitis Qualifiers: Esophagitis presence: esophagitis presence not specified Qualified Code(s): K21.9 - Gastro-esophageal reflux disease without esophagitis (6) Gastroparesis: Code(s): K31.84 - Gastroparesis Plan BAHRAINI #Cindy Gaitan She has the stronger LInzess 290 but only moved her bowels twice the first day, then had thin soft BMs, but then hit a period w/o BM and had to buy OTC mag citrate and had an explosion. When she takes bisacodyl 2 tabs prn it causes her a lot of cramping and nausea. This makes her fearful of taking it. I suggest that she try 1 bisacodyl every night and continue the LInzess. She is agreeable to this She continues on omeprazole in the morning and famotidine at night, Reglan 10 mg 4 times a day, dicyclomine and simethicone. We review all of the labs and the results and since her liver functions are no rmal I think we can turn this over to her primary care provider for further monitoring from now on and she can return to our service if the transaminases rise greater than twice the normal upper limit. Keep 06/22 appt. TODAY'S VISIT BAHRAINI #Christopher She continues on Linzess 290 and bisacodyl 1 qhs with simethicone and omeprazole in the morning and famotidine at night, Reglan 10 mg 4 times a day, dicyclomine. She is now satisfied with her GI regimen. She asks about her liver monitoring, and I again inform her that I have handed this off to her PCP to monitor as her transaminases have been normal for an extended period of time. Return office visit in 6 months [facility] Medical History (Updated 04/04/24 @ 13:21 by SARAHY Yates) Physical exam Diabetes Androgenic alopecia Angiomyolipoma of kidney Urinary incontinence Hair loss Skin change Physical exam Disc degeneration, lumbar Knee osteoarthritis Spondylosis of lumbar spine Retention of urine Essential hypertension Headache Polyarthralgia Skin lesion Osteoarthritis Vomiting and diarrhea Normal colonoscopy Tachycardia Fibromyalgia Dyspepsia Surgical History Hx of colonoscopy (~2010) History of esophagogastroduodenoscopy (EGD) (~2017) History of breast biopsy (~2005) Tubal ligation status History of hysterectomy Family History Father No problems noted. Mother Pulmonary hypertension CVD (cardiovascular disease) HTN (hypertension) Maternal Aunt Breast cancer Maternal Aunt Breast cancer Paternal Aunt Lymphoma Paternal Uncle Gastric cancer Other Cancer Diabetes Urinary incontinence Social History Household Members: Family Housing: Apartment Alcohol intake: never Patient Tobacco Use Status: Never used Tobacco e-Cigarette/Vaping Use: Never Used Second Hand Smoke Exposure: No service: No Current occupational status: unemployed Cognitive needs: Yes Hearing needs: No Vision needs: Yes Review of Systems Const Denies fatigue, Denies fever(s), Denies night sweats, Denies poor appetite and Denies weight loss ENT Reports Normal hearing present, Denies dysphagia, Denies odynophagia, Denies throat swelling and Denies tongue swelling Card Reports no additional complaints Resp Reports no additional complaints GI Details: Denies abdominal pain, Denies melena, Reports bloating, Denies hematochezia, Reports constipation, Denies GI cramping, Denies dysphagia, Denies excessive flatus, Reports early satiety, Reports heartburn, Denies diarrhea, Denies nausea, Denies odynophagia, Denies vomiting and Denies hematemesis Skin/Breast Denies pruritus, Denies lesions, Denies rash and Denies jaundice Neuro Reports Normal hearing present and Denies Abnormal speech present Endo Denies fatigue Aller/Immun Denies throat swelling and Denies tongue swelling Physical Exam Vital Signs: Last Vital Signs Pulse 67 04/04/24 12:34 BP 126/65 04/04/24 12:34 BMI result Body Mass Index 29.9 Const General: cooperative, no acute distress, well developed and well groomed Nutritional Appearance: well nourished and overweight Orientation/consciousness: oriented to person, oriented to place and oriented to time Limitations: language barrier and ambulation with cane HEENT Head: Yes normocephalic and Yes atraumatic Eyes General: appearance normal, both eyes and all related structures Pupils: Equal, round and reactive pupils present Neck Neck: Yes normal visual inspection and Yes no lymphadenopathy Thyroid: Thyroid normal Resp Effort & Inspection: normal respiratory effort and able to speak in complete sentences Auscultation: clear to auscultation bilaterally Cardio Rate: regular rate Rhythm: regular rhythm Heart sounds: Normal, physiologic split S2 sound present Peripheral pulses: radial pulses present and posterior tibial pulses present GI Inspection: No distended, No Abdominal panniculus present and Yes obesity Palpation (GI): Soft to palpation, nontender, no guarding, not rigid and No hepatosplenomegaly present Percussion: Yes normal to percussion Auscultation: normal bowel sounds Rectal Exam - Female: deferred Skin General skin exam: no rashes or lesions noted, turgor normal, skin not dry, no jaundice, No spider nevi and no striae Rashes: no rashes Nails: normal Neuro General: oriented to person, oriented to place and oriented to time Cranial nerves: Yes Equal, round and reactive pupils present and Yes Normal hearing present Speech: No Abnormal speech present Extrem General: Yes normal to inspection, No clubbing, No cyanosis and No edema Psych Appearance: grossly normal and well kempt Mental Status: mental status grossly normal Speech and movement: Normal speech and movement present Affect: normal affect Attitude: cooperative Thought process: Normal thought process present and not confabulating Thought content: Normal thought content present Insight: Limited insight present (Psych) Judgement: Limited judgement present (Psych) Assessment & Plan Assessment & Plan (1) GERD (gastroesophageal reflux disease): Code(s): K21.9 - Gastro-esophageal reflux disease without esophagitis Category: Medical Qualifiers: Esophagitis presence: esophagitis presence not specified Qualified Code(s): K21.9 - Gastro-esophageal reflux disease without esophagitis (2) Gastroparesis: Code(s): K31.84 - Gastroparesis Category: Medical (3) Chronic idiopathic constipation: Code(s): K59.04 - Chronic idiopathic constipation Category: Medical (4) Tubular adenoma of colon: Comment: 2020 SCOPE REPEAT 5 YEARS. Code(s): D12.6 - Benign neoplasm of colon, unspecified Category: Medical (5) H pylori ulcer: Comment: Stool antigen negative 09/2020 performed at [facility] Code(s): K27.9 - Peptic ulcer, site unspecified, unspecified as acute or chronic, without hemorrhage or perforation; B96.81 - Helicobacter pylori [H. pylori] as the cause of diseases classified elsewhere Category: Medical Plan BAHRAINI #Mara and Magda She continues on Linzess 290 and bisacodyl 1 qhs with simethicone and omeprazole in the morning and famotidine at night, Reglan 10 mg 4 times a day, dicyclomine. She is now satisfied with her GI regimen. She asks about her liver monitoring, and I again inform her that I have handed this off to her PCP to monitor as her transaminases have been normal for an extended period of time. Return office visit in 6 month Coding Level of Care Code Est Pt Level 3 (79918) Diagnoses Gastroesophageal reflux disease, unspecified whether esophagitis present K21.9 Esophagitis presence: esophagitis presence not specified Gastroparesis K31.84 Chronic idiopathic constipation K59.04 Tubular adenoma of colon D12.6 H pylori ulcer K27.9; B96.81
== END 2024-04-04 13:42 | disposition home or self-care (01) ==
PROVIDERS: PCP Internal Medicine; Visit Provider Nurse Practitioner
DX: K21.9 Gastro-esophageal reflux disease without esophagitis (principal); K31.84 Gastroparesis; K59.04 Chronic idiopathic constipation; D12.6 Benign neoplasm of colon, unspecified; K27.9 Peptic ulcer, site unspecified, unspecified as acute or chronic, without hemorrhage or perforation; B96.81 Helicobacter pylori [H. pylori] as the cause of diseases classified elsewhere
CPT/HCPCS: 99213

== ENCOUNTER → 2024-04-04 12:33 | Outpatient (BNVA) | payer OTHER, SELFPAY | PROVIDERS: PCP Internal Medicine; Visit Provider Nurse Practitioner | DX: K59.04 Chronic idiopathic constipation (principal); K57.81 Diverticulitis of intestine, part unspecified, with perforation and abscess with bleeding; K21.9 Gastro-esophageal reflux disease without esophagitis; K31.84 Gastroparesis; R10.9 Unspecified abdominal pain; D12.6 Benign neoplasm of colon, unspecified; K27.9 Peptic ulcer, site unspecified, unspecified as acute or chronic, without hemorrhage or perforation; B96.81 Helicobacter pylori [H. pylori] as the cause of diseases classified elsewhere; Z79.899 Other long term (current) drug therapy | CPT/HCPCS: 99212 ==

== ENCOUNTER 2024-09-26 12:05 | Outpatient (AMB) | payer OTHER, SELFPAY ==
--- NOTE | 2024-09-26 12:16 | HO.NEPHOV ---
Vital Signs 09/26/24 12:17 Height 5 ft 6 in Weight 179 lb 2 oz BMI 28.9 BP 110/80 Blood Pressure Location Lt brachial Position Sitting Pulse 67 Pulse Source Pulse Oximeter Pulse Oximetry (%) 98 Oxygen Delivery Method Room Air Intake Visit Reasons: Essential hypertension-LVM Collector Of Aquarium Specimens Required: Yes Collector Of Aquarium Specimens Language: Cocktail Waitress Services: Collector Of Aquarium Specimens Present Collector Of Aquarium Specimens Name: Chelsy [id number] Information Interpreted: clinical only Accompanied by: Daughter Allergies No Known Allergies Allergy (Verified 09/26/24 12:17) HPI Comments Details: Melanie was seen in 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 She had an ultrasound done which did not show any significant increase in the size of angiolipoma. She does not have any flank pain or hematuria. Her blood pressure is well controlled on the current medications. She has no weight loss or night sweats. She denies any chest pain, shortness of breath, hemoptysis, paroxysmal nocturnal dyspnea, orthopnea or pedal edema but gets intermittent palpitations. Her renal functions have been stable [facility] Medical History (Updated 10/12/24 @ 16:35 by Rishabh Fernandez MD) Physical exam Diabetes Androgenic alopecia Angiomyolipoma of kidney Urinary incontinence Hair loss Skin change Physical exam Disc degeneration, lumbar Knee osteoarthritis Spondylosis of lumbar spine Retention of urine Essential hypertension Headache Polyarthralgia Skin lesion Osteoarthritis Vomiting and diarrhea Normal colonoscopy Tachycardia Fibromyalgia Dyspepsia Surgical History Hx of colonoscopy (~2010) History of esophagogastroduodenoscopy (EGD) (~2017) History of breast biopsy (~2005) Tubal ligation status History of hysterectomy Family History Father No problems noted. Mother Pulmonary hypertension CVD (cardiovascular disease) HTN (hypertension) Maternal Aunt Breast cancer Maternal Aunt Breast cancer Paternal Aunt Lymphoma Paternal Uncle Gastric cancer Other Cancer Diabetes Urinary incontinence Social History Household Members: Family Housing: Apartment Alcohol intake: never Patient Tobacco Use Status: Never used Tobacco e-Cigarette/Vaping Use: Never Used Second Hand Smoke Exposure: No service: No Current occupational status: unemployed Cognitive needs: Yes Hearing needs: No Vision needs: Yes Review of Systems Const All systems reviewed & are unremarkable except as noted in HPI and below Physical Exam Vital Signs: Last Vital Signs Pulse 67 09/26/24 12:17 BP 110/80 09/26/24 12:17 Pulse Ox 98 09/26/24 12:17 Oxygen Delivery Method Room Air 09/26/24 12:17 BMI result Body Mass Index 28.9 Const General: comfortable and no acute distress Orientation/consciousness: patient oriented x3 HEENT Head: Yes normocephalic Mouth: Normal oral and palatal mucosa present Eyes EOM: EOMs intact bilaterally Neck Neck: Yes supple Resp Auscultation: clear to auscultation bilaterally Cardio Jugular venous distension: no JVD Rate: regular rate GI Palpation (GI): Soft to palpation Auscultation: normal bowel sounds General: Yes no CVA tenderness Back/Spine/Pelvis Back: no CVA tenderness Skin General skin exam: no rashes or lesions noted Neuro General: patient oriented x3 and moves all extremities Extrem General: Yes no pedal edema Assessment & Plan Assessment & Plan (1) Angiomyolipoma of kidney: Code(s): D17.71 - Benign lipomatous neoplasm of kidney Category: Medical (2) Hypertension: Code(s): I10 - Essential (primary) hypertension Category: Medical Qualifiers: Hypertension type: primary hypertension Qualified Code(s): I10 - Essential (primary) hypertension Plan Melanie had an incidental finding of angiomyolipoma in the kidney when CT scan was done for abdominal pain and vomiting. She has no history of renal dysfunction, hematuria, flank pain, weight loss or night sweats. She had an ultrasound done which did not show any increase in size of the angiomyolipoma. If the angiomyolipoma is increasing in size, I plan to send her to Dr. Tni Espinoza in the future if it needs to be embolized. Her blood pressure is at goal ever since her medications were adjusted at the last visit. I did not make any medication changes today. All questions answered. Follow-up given Orders: Orders Electrolytes 09/26/24 I10 - Essential (primary) hypertension, D17.71 - Benign lipomatous neoplasm of kidney Protein Creatinine Ratio, Ur 09/26/24 I10 - Essential (primary) hypertension, D17.71 - Benign lipomatous neoplasm of kidney Creatinine 09/26/24 I10 - Essential (primary) hypertension, D17.71 - Benign lipomatous neoplasm of kidney Blood Urea Nitrogen 09/26/24 I10 - Essential (primary) hypertension, D1. - Benign lipomatous neoplasm of kidney UA and rflx microscopic 09/26/24 I10 - Essential (primary) hypertension, D1 - Benign lipomatous neoplasm of kidney US renal BI 1 Month I10 - Essential (primary) hypertension, D1 - Benign lipomatous neoplasm of kidney Coding Level of Care Code Est Pt Level 4 (70041) Diagnoses Angiomyolipoma of kidney D1 Primary hypertension I10 Hypertension type: primary hypertension
[2024-09-26 12:17] VITALS: BP 110/80; PULSE 67; O2SAT 98; BMI 28.9
--- OUTSIDE RECORDS SUMMARY | 2024-09-26 12:58 | XMS_ITS | Clinical Summary ---
Author Organization [facility] Address [address] [facility] [address] [place] [address] Phone Care Team Providers Care Sales And Service Officer Name Role Phone Mara Romero MD Primary Care Provider [phone] Allergies No known active allergies Medications bisacodyl (DULCOLAX) 5 MG EC tablet Take 1-2 tablets by mouth 1 (one) time each day Active cyclobenzaprine (FLEXERIL) 10 MG tablet Take 1 tablet by mouth 3 (three) times a day if needed Active dicyclomine (BENTYL) 10 MG capsule Take 1 capsule by mouth 3 (three) times a day Active DULoxetine (CYMBALTA) [address] capsule Take 1 capsule by mouth 1 (one) time each day Active gabapentin (NEURONTIN) 400 MG capsule Take 1 capsule by mouth 2 (two) times a day Active metoclopramide (REGLAN) 5 MG tablet Take 1-2 tablets by mouth 1 (one) time each day Active metoprolol succinate XL (TOPROL-XL) 25 MG 24 hr tablet Take 2 tablets by mouth 1 (one) time each day Active traMADol (ULTRAM) 50 MG tablet Take 1 tablet by mouth 1 (one) time each day Active traZODone (DESYREL) 50 MG tablet Take 1 tablet by mouth at night if needed 1 Active Linzess 145 MCG capsule Take 1 capsule by mouth 1 (one) time each day 1 Active docusate sodium (COLACE) 100 MG capsule Take 100 mg by mouth 2 (two) times a day Active simethicone (MYLICON,GAS-X) 180 MG capsule 1 Active hydroCHLOROthia zide 12.5 MG tablet Take 25 mg by mouth 1 (one) time each day Active meclizine (ANTIVERT) 12.5 MG tablet Take 12.5 mg by mouth if needed for dizziness Active Active Problems Problem Noted Date Diagnosed Date Fibromyalgia 12/03/2020 Main spoken language Swedish 12/03/2020 Angiolipoma 11/23/2020 Supraventricular tachycardia 11/23/2020 Hypertension 11/23/2020 Family History Medical History Relation Comments Diabetes Child type 1 Diabetes Mother type 2 Hypertension Mother Diabetes Sibling sister type 1 Relation Status Comments Child Father Mother Alive Sibling Social History Tobacco Use Types Packs/Day Years Used Date Smoking Tobacco: Never Smokeless Tobacco: Never Tobacco Cessation:Counseling Given: Not Answered Alcohol Use Standard Drinks/Week Comments No 0 (1 standard drink = 0.6 oz pur e alcohol) Comments Unknown Sex and Gender Information Value Date Recorded Sex Assigned at Not on file Legal Sex Female 4:55 PM EST Gender Identity Not on file Sexual Orientation Not on file Last Filed Vital Signs Vital Sign Reading Time Taken Comments Blood Pressure 120/80 01/22/2023 4:22 PM EDT Pulse 68 01/22/2023 4:22 PM EDT Temperature - - Respiratory Rate - - Oxygen Saturation 98% 05/19/2021 3:58 PM EST Inhaled Oxygen Concentration - - Weight 83.8 kg (184 lb 12.8 oz) 01/22/2023 4:22 PM EDT Height 167.6 cm (5' 6 ) 09/26/2019 12:0 0 PM EDT Body Mass Index 29.83 09/26/2019 12:00 PM EDT Plan of Treatment Health Maintenance Due Date Last Done Comments Breast Cancer Screening 1965 Pneumococcal Vaccine: 50+ Ye ars (1 of 2 - PCV) 1983 Colorectal Cancer Screening: Annual FOBT 2013 Colorectal Cancer Screening: Colonoscopy 2013 Colorectal Cancer Screening: Sigmoidoscopy 2013 Influenza Vaccine (Season Ended) 2025 Hepatitis B Vaccine Aged Out No longe r eligible based on patient's age to complete this topic Insurance [facility] Medicaid Ctr Medicaid Care Teams Sales And Service Officer Relationship Specialty Start Date End Date Mara Romero MD [address] [place], [place] PCP - General 06/21/20
--- OUTSIDE RECORDS SUMMARY | 2024-09-26 12:58 | XMS_ITS | Encounter Summary ---
Author Organization [facility] Address [address] [place] [address] Phone Care Team Providers Care Planning Advisor Name Role Phone Mara Romero MD Primary Care Provider [phone] Encounter Details Date Type Department Care Team (Late st Contact Info) Description 12/23/2020 Orders Only [facility] [address] [place] [id number] Rishabh Fernandez MD Angiolipoma; Hypertension Social History Tobacco Use Types Packs/Day Years Used Date Smoking Tobacco: Never Smokeless Tobacco: Never Alcohol Use Standard Drinks/Week Comments No 0 (1 standard drink = 0.6 oz pur e alcohol) Comments Unknown Sex and Gender Information Value Date Recorded Sex Assigned at Not on file Legal Sex Female 4:55 PM EST Gender Identity Not on file Sexual Orientation Not on file documented as of this encounter Plan of Treatment Not on file documented as of this encounter Procedures Procedure Name Priority Date/Time Associated Diagnosis Comments US RENAL COMPLETE Routine 01/11/2021 2:1 3 PM EDT Angiolipoma Hypertension documented in this encounter Results * Ultrasound renal complete (01/11/2021 2:13 PM EDT) Anatomical Region Laterality Modality Body Ultrasound us Rishabh Fernandez MD G US PROCEDURES Final Result documented in this encounter Visit Diagnoses Diagnosis Angiolipoma Hypertension documented in this encounter Care Teams Planning Advisor Relationship Specialty Start Date End Date Mara Romero MD [address] [place] [address] PCP - General 06/21/20 documented as of this encounter
--- OUTSIDE RECORDS SUMMARY | 2024-09-26 12:58 | XMS_ITS | Clinical Summary ---
Author Organization [facility] Address [address] [place] [address] Care Team Providers Care Map Drafter Name Role Phone Unavailable Primary Care Provider Unavailabl e Surgical History Surgery Date Site/Laterality Comments HYSTERECTOMY PROCEDURE: HISTORICAL HYSTERECTOMY COLONOSCOPY PROCEDURE: HISTORICAL COLONOSCOPY; COMMENT: + polyps, BREAST SURGERY Right PROCEDURE: [place] UNLISTED PROCEDURE BREAST; COMMENT: 2008 biopsies BREAST BIOPSY Bilateral PROCEDURE: BX BREAST; PERC NEEDLE CORE W/IMAG GUID; COMMENT: benign Medical History Medical History Date Comments HTN (hypertension) DX:HTN (hyper tension) Fibromyalgia DX:Fibromyalgia Fatty liver DX:Fatty liver Breast mass DX:Breast mass; COMMENT: right Family History Medical History Relation Name Comments Diabetes Mother Hypertension Mother Other: heart dx Mother Breast cancer Mother's side aunts Stomach cancer Mother's side Relation Name Status Comments Brother x2 Father Mother Alive Mother's side Alive Sister x5 Social History Tobacco Use Types Packs/Day Years Used Date Smoking Tobacco: Never Smokeless Tobacco: Never Alcohol Use Standard Drinks/Week Comments No 0 (1 standard drink = 0.6 oz pur e alcohol) Comments Unknown Sex and Gender Information Value Date Recorded Sex Assigned at Not on file Legal Sex Female 9:51 AM EST Gender Identity Not on file Sexual Orientation Not on file Obstetrics History Plan of Treatment Health Maintenance Due Date Last Done Comments DTaP,Tdap,and Td Vaccines (1 - Tdap) 1983 Cervical Cancer Screening: P ap Smear 1985 Pneumococcal Vaccine: 50+ Ye ars (1 of 1 - PCV) 2014 Zoster Vaccines (1 of 2) 2014 Cholesterol Screening (Lipid Panel) 05/09/2022 Colorectal Cancer Screening: Colonoscopy 05/09/2022 Depression Screening 05/09/2022 HIV Screening 05/09/2022 Hepatitis C Screening 05/09/2022 Social Influencers of Health Screening 05/09/2022 Hypertension/CHF/CAD Annual BMP Blood Test 05/27/2022 Breast Cancer Screening 12/29/2022 12/29/2020 COVID-19 Vaccine ( - 2023-2 5 season) 2024 Influenza Vaccine (Season Ended) 2025 RSV Immunization Adult Patie nts (1 - 1-dose 75+ series) 2039 HIB Vaccines Aged Out No longer eligi ble based on patient's age to complete this topic HPV Vaccines Aged Out No longer eligi ble based on patient's age to complete this topic Hepatitis A Vaccines Aged Out No long er eligible based on patient's age to complete this topic Hepatitis B Vaccines Aged Out No long er eligible based on patient's age to complete this topic IPV Vaccines Aged Out No longer eligi ble based on patient's age to complete this topic MMR Vaccines Aged Out No longer eligi ble based on patient's age to complete this topic Meningococcal ACWY Vaccine Aged Out N o longer eligible based on patient's age to complete this topic Meningococcal B Vaccine Aged Out No l onger eligible based on patient's age to complete this topic Pneumococcal Vaccine: Pediat rics (0 to 5 Years) and At-Risk Patients (6 to 64 Years) Aged Out No longer eligi ble based on patient's age to complete this topic RSV Immunization Patients Un guera 20 months Aged Out No longer eligible b ased on patient's age to complete this topic Varicella Vaccines Aged Out No longer eligible based on patient's age to complete this topic Procedures Procedure Name Priority Date/Time Associated Diagnosis Comments DIAGNOSTIC MAMMOGRAPHY INCLUDING CAD BILATERAL Routine 12/29/2020 3:40 PM EDT Encounter for gynecological examination (general) (routine) without abnormal findings Encounter for other screening for malignant neoplasm of breast Solitary cyst of right breast Solitary cyst of left breast Other specified health status from Last 3 Months or Most Recently Relevant to Health Maintenance Results * DIAGNOSTIC MAMMOGRAPHY INCLUDING CAD BILATERAL (12/29/2020 3:40 PM EDT) Anatomical Region Laterality Modality Mammography 12/03/2020 8:18 AM EDT Narrative 12/29/2020 3:42 PM EDT This is a summary report. The complete report is available in the patient's medical record. If you cannot access the medical record, please contact the sending organization for a detailed fax or copy. BILATERAL 2D and 3D DIGITAL DIAGNOSTIC MAMMOGRAM History: Evaluation for bilateral breast pain. ??No family history of breast cancer Comparison: Multiple priors dating back to 03/20/2016 Technique: Bilateral full-field digital 2D and 3D mammography was performed using standard CC and MLO projections CAD was used to evaluate this mammogram. Findings: Density: The breasts are heterogeneously dense which may obscure small masses-C RIGHT: No suspicious masses, groups of microcalcification or areas of architectural distortion identified. Stable typically benign parenchymal asymmetries LEFT: No suspicious masses, groups of microcalcifications or areas of architectural distortion identified. Stable typically benign parenchymal asymmetries Bilateral BREAST TARGETED ULTRASOUND EVALUATION HISTORY: Work-up for bilateral breast pain/palpable abnormality TECHNIQUE: Ultrasonographic examination is performed using a linear array transducer. ??Targeted right breast ultrasound was performed from 9:00 to 3:00 in area of clinical pain/palpable abnormality. ??Targeted left breast ultrasound was performed from 11:00 to 4:00 in area of clinical pain/palpable abnormality. ??Real-time sonographic scanning was also performed by the radiologist FINDINGS: Right: From 9:00 to 3:00, no sonographic evidence of malignancy or other focal abnormalities were identified at the right breast in area of palpable concern/pain. Left: From 11:00 to 4:00, no sonographic evidence of malignancy other focal abnormalities in area of palpable/clinical pain Impression: No sonographic or mammographic evidence of malignancy BI-RADS Category 2 benign findings Recommendation: Routine annual screening mammography is recommended Procedure Note Jamel Mayberry MD - 05/30/2022 This is a summary report. The complete report is available in thepatient's medical record. If you cannot access the medical record, pleasecontact the sending organization for a detailed fax or copy. BILATERAL 2D and 3D DIGITAL DIAGNOSTIC MAMMOGRAM History: Evaluation for bilateral breast pain. No family history ofbreast cancer Comparison: Multiple priors dating back to 03/20/2016 Technique: Bilateral full-field digital 2D and 3D mammography wasperformed using standard CC and MLO projections CAD was used to evaluate this mammogram. Findings: Density: The breasts are heterogeneously dense which may obscure smallmasses-C RIGHT: No suspicious masses, groups of microcalcification or areas ofarchitectural distortion identified. Stable typically benign parenchymalasymmetries LEFT: No suspicious masses, groups of microcalcifications or areas ofarchitectural distortion identified. Stable typically benign parenchymalasymmetries Bilateral BREAST TARGETED ULTRASOUND EVALUATION HISTORY: Work-up for bilateral breast pain/palpable abnormality TECHNIQUE: Ultrasonographic examination is performed using a linear arraytransducer. Targeted right breast ultrasound was performed from 9:00 to3:00 in area of clinical pain/palpable abnormality. Targeted left breastultrasound was performed from 11:00 to 4:00 in area of clinicalpain/palpable abnormality. Real-time sonographic scanning was alsoperformed by the radiologist FINDINGS: Right: From 9:00 to 3:00, no sonographic evidence of malignancy or other focalabnormalities were identified at the right breast in area of palpableconcern/pain. Left: From 11:00 to 4:00, no sonographic evidence of malignancy other focalabnormalities in area of palpable/clinical pain Impression: No sonographic or mammographic evidence of malignancy BI-RADS Category 2 benign findings Recommendation: Routine annual screening mammography is recommended Leslye Crane CNM IM BI PROCEDURES Final Resul t from Last 3 Months or Most Recently Relevant to Health Maintenance
== END 2024-09-26 12:40 | disposition home or self-care (01) ==
LOC: HO.HKA 12:06
PROVIDERS: PCP Internal Medicine; Visit Provider Internal Medicine Nephrology
DX: D17.71 Benign lipomatous neoplasm of kidney (principal); I10 Essential (primary) hypertension
CPT/HCPCS: 99214

== ENCOUNTER → 2024-09-26 12:05 | Outpatient (BNVA) | payer OTHER, SELFPAY | PROVIDERS: PCP Internal Medicine; Visit Provider Internal Medicine Nephrology | DX: I10 Essential (primary) hypertension (principal); D17.71 Benign lipomatous neoplasm of kidney | CPT/HCPCS: 99212 ==

== ENCOUNTER 2024-10-15 09:49 | Outpatient (REF) | payer OTHER, SELFPAY ==
--- OUTSIDE RECORDS SUMMARY | 2024-10-15 10:45 | XMS_ITS | Clinical Summary ---
Author Organization [facility] Address [address] [facility] [address] [place] [address] Phone Care Team Providers Care Entry Level Electrical Engineer Name Role Phone Mara Romero MD Primary Care Provider [phone] Allergies No known active allergies Medications bisacodyl [...] Diagnosed Date Fibromyalgia 12/03/2020 Main spoken language Yoruba 12/03/2020 Angiolipoma 11/23/2020 Supraventricular tachycardia 11/23/2020 Hypertension [...] patient's age to complete this topic Insurance [facility] Medicaid Ctr Medicaid Care Teams Entry Level Electrical Engineer Relationship Specialty Start Date End Date Mara Romero MD [address] [place], [place] PCP - General 06/21/20
--- OUTSIDE RECORDS SUMMARY | 2024-10-15 10:45 | XMS_ITS | Clinical Summary ---
Author Organization [facility] Address [address] [place] [address] Phone Care Team Providers Care Stenciler Name Role Phone Unavailable Primary Care Provider Unavailabl e Surgical History Surgery Date Site/Laterality Comments HYSTERECTOMY PROCEDURE: HISTORICAL HYSTERECTOMY COLONOSCOPY PROCEDURE: HISTORICAL COLONOSCOPY; COMMENT: + polyps, BREAST SURGERY Right PROCEDURE: [place] UNLISTED PROCEDURE BREAST; COMMENT: 2008 biopsies BREAST [...] screening mammography is recommended Leslye Crane CNM IMG BI PROCEDURES Final Resul t from Last 3 Months or Most Recently Relevant to Health Maintenance Insurance MEDICAID - [place]
--- OUTSIDE RECORDS SUMMARY | 2024-10-15 10:45 | XMS_ITS | Encounter Summary ---
Author Organization [facility] Address [address] [place] [address] Phone Care Team Providers Care Placer Miner Name Role Phone Mara Romero MD Primary Care Provider Encounter Details Date Type Department Care Team (Late st Contact Info) Description 12/23/2020 Orders Only [facility] [address] [place] [phone] Rishabh Fernandez MD Angiolipoma; Hypertension Social History [...] Hypertension documented in this encounter Care Teams Placer Miner Relationship Specialty Start Date End Date Mara Romero MD [address] [place] [address] PCP - General 06/21/20 documented as of this encounter
[2024-10-15 10:54] LABS: Anion Gap 13 (12-20); Blood Urea Nitrogen 14 mg/dL (9-16); Carbon Dioxide 28 mmol/L (22-29); Chloride 106 mmol/L (96-108); Estimated Glomerular Filt Rate > 60; Sodium 143 mmol/L (135-145)
[2024-10-15 12:07] LABS: Appearance Urine Clear; Color Urine Dark Yellow; Glucose Urine UA Negative (Negative); Leukocyte Esterase Urine Negative (Negative); Nitrite Urine Negative (Negative); Specific Gravity - Urine 1.025 (1.005-1.025); UMIC TRIGGER UA YES; Urine Blood Negative (Negative); Urine Ketones Negative (Negative); Urine Protein 30 (1+) mg/dL (Neg-Trace)
[2024-10-15 12:17] LABS: Bacteria Urine 4+ (None Seen); Hyaline Casts Urine 0-2 /LPF (0-2); RBC Urine 0-2 /HPF (0-2); WBC Urine 0-5 /HPF (0-5)
[2024-10-15 12:45] LABS: Creatinine Urine 247.24 mg/dL; Protein/Creatinine Ratio, Ur 0.14 (<0.2); Total Protein Urine Random 35 mg/dL (<12)
== END 2024-10-15 09:50 | disposition home or self-care (01) ==
LOC: HO.LAB 09:49
PROVIDERS: Absent Provider Internal Medicine; PCP Internal Medicine; Visit Provider Internal Medicine Nephrology
DX: I10 Essential (primary) hypertension (principal); D17.71 Benign lipomatous neoplasm of kidney
CPT/HCPCS: 36415; 80051; 81001; 81003; 82565; 82570; 84156; 84520

== ENCOUNTER 2024-10-20 16:01 | Outpatient (AMB) | payer OTHER, SELFPAY ==
--- OUTSIDE RECORDS SUMMARY | 2024-10-20 16:03 | XMS_ITS | Clinical Summary ---
Author Organization [facility] Address [address] [facility] [address] [place] [address] Phone Care Team Providers Care Application Administrator Name Role Phone Mara Romero MD Primary Care Provider [phone] Allergies No known active allergies Medications bisacodyl [...] Diagnosed Date Fibromyalgia 12/03/2020 Main spoken language Bengali 12/03/2020 Angiolipoma 11/23/2020 Supraventricular tachycardia 11/23/2020 Hypertension [...] patient's age to complete this topic Insurance [facility] Medicaid Ctr Medicaid Care Teams Application Administrator Relationship Specialty Start Date End Date Mara Romero MD [address] [place], [place] PCP - General 06/21/20
--- OUTSIDE RECORDS SUMMARY | 2024-10-20 16:03 | XMS_ITS | Clinical Summary ---
Author Organization [facility] Address [address] [place] [address] Phone Care Team Providers Care Checking Department Supervisor Name Role Phone Unavailable Primary Care Provider Unavailabl e Surgical History Surgery Date Site/Laterality Comments HYSTERECTOMY PROCEDURE: HISTORICAL HYSTERECTOMY COLONOSCOPY PROCEDURE: HISTORICAL COLONOSCOPY; COMMENT: + polyps, BREAST SURGERY Right PROCEDURE: [place] UNLISTED PROCEDURE BREAST; COMMENT: 2008 biopsies BREAST [...]
--- OUTSIDE RECORDS SUMMARY | 2024-10-20 16:03 | XMS_ITS | Encounter Summary ---
Author Organization [facility] Address [address] [place] [address] Phone Care Team Providers Care [employer] Social Studies Tutor Name Role Phone Mara Romero MD Primary Care Provider [phone] Encounter Details Date Type Department Care Team (Late st Contact Info) Description 12/23/2020 Orders Only [facility] [address] [place] [phone] Rishabh Fernandez MD Angiolipoma; Hypertension Social History [...] Hypertension documented in this encounter Care Teams High School Social Studies Tutor Relationship Specialty Start Date End Date Mara Romero MD [address] [place] [address] PCP - General 06/21/20 documented as of this encounter
--- NOTE | 2024-10-20 16:11 | MHC.PC.OV ---
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: No Accompanied by: Daughter Allergies No Known Allergies Allergy (Verified 10/20/24 16:24) Medication List - Last Reconciled 10/20/24 by Mara Lorenzo MD atorvastatin 40 mg PO BEDTIME 90 days bisacodyl (Dulcolax (bisacodyl)) 10 mg (2 x 5 mg) PO BEDTIME 30 days celecoxib (Celebrex) 200 mg PO BID 30 days cyclobenzaprine 10 mg PO BID PRN 30 days diclofenac sodium 1% 2 grams topical BID PRN dicyclomine 20 mg PO QID PRN disposable gloves (Biobrane Gloves Medium) Use 1 pair of gloves as needed docusate sodium (Colace) 100 mg PO .DAILY WITH FOOD PRN famotidine (Pepcid) 40 mg PO BEDTIME gabapentin 400 mg PO BID 90 days hydrochlorothiazide 25 mg PO DAILY 90 days hydrocortisone 2.5% (Proctosol HC) 1 appl MI BID incontinence pad, liner, disp As directed [lift chair As directed] linaclotide (Linzess) 290 mcg PO QAM 30 days metoclopramide HCl (Reglan) 10 mg PO QIDACHS metoprolol succinate ER 50 mg PO DAILY mirtazapine 15 mg PO BEDTIME 30 days omeprazole 40 mg PO DAILY Shower Chair As directed simethicone 180 mg PO QID 30 days tramadol 50 mg PO DAILY PRN 30 days underpads (Certainty Underpads) Use 1 underpad once a day walker As directed [wipes As directed] Tobacco use date assessed: 10/20/24 Dental Screening Dental Screen Date: 10/20/24 Did you have a dental visit in the last 12 months?: Yes Did you have a dental problem in the last 6 months where you did not have access to dental care?: No Was dental information given to patient?: Patient has dentist HPI HPI Comments History of Present Illness Details The patient is a 59-year-old female presenting for a comprehensive physical examination and wellness visit. During the conversation, she reported chronic pain associated with fibromyalgia, which she describes as significant enough to cause crises of pain, especially during periods of rest in bed. She noted that she cannot tolerate high doses of gabapentin and that previous trials of Lyrica resulted in adverse effects, including dry mouth and increased heart rate, leading to its discontinuation. Amitriptyline has been mentioned as a part of her past treatment regimen in [place]. The patient has a history of elevated blood pressure and hyperlipidemia. She currently takes atorvastatin for cholesterol management and hydrocholorothiazide for hypertension. She confirmed that the recent bone densitometry and mammography results were normal. Regarding colonoscopy, she had a procedure in 2019, with findings of a polyp that was determined to be normal. Other medical concerns include insomnia and depressive episodes, for which she was taking medications like Myrtazapine at night, offering benefits for depression and sleep. She mentioned a previous psychiatric history and a cessation of psychiatric services due to missed appointments. Her medication regimen also includes metoprolol for blood pressure, dicylomine for gastrointestinal discomfort, and Reglan for gastric motility. She is taking tramadol sporadically for pain relief and uses omeprazole for GERD. - Tetanus vaccination status is unclear; a booster dose was not administered during this visit. - Recent bone densitometry was normal. - Recent mammography was normal, with follow-up scheduled. - Colonoscopy in 2020, polyp removed, no malignant findings. - Routine laboratories completed in the past week; specific results not reviewed. [facility] Medical History Physical exam Diabetes Androgenic alopecia Angiomyolipoma of kidney Urinary incontinence Hair loss Skin change Physical exam Disc degeneration, lumbar Knee osteoarthritis Spondylosis of lumbar spine Retention of urine Essential hypertension Headache Polyarthralgia Skin lesion Osteoarthritis Vomiting and diarrhea Normal colonoscopy Tachycardia Fibromyalgia Dyspepsia Surgical History Hx of colonoscopy (~2010) History of esophagogastroduodenoscopy (EGD) (~2017) History of breast biopsy (~2005) Tubal ligation status History of hysterectomy Family History Father No problems noted. Mother Pulmonary hypertension CVD (cardiovascular disease) HTN (hypertension) Maternal Aunt Breast cancer Maternal Aunt Breast cancer Paternal Aunt Lymphoma Paternal Uncle Gastric cancer Other Cancer Diabetes Urinary incontinence Social History Household Members: Family Housing: Apartment Alcohol intake: never Patient Tobacco Use Status: Never used Tobacco e-Cigarette/Vaping Use: Never Used Second Hand Smoke Exposure: No service: No Current occupational status: unemployed Cognitive needs: Yes Hearing needs: No Vision needs: Yes Questionnaire PHQ-9 Over the last 2 weeks, how often have you been bothered by any of the following problems? 1. Little interest or pleasure in doing things: more than half the days 2. Feeling down, depressed, or hopeless: more than half the days 3. Trouble falling or staying asleep, or sleeping too much: nearly every day 4. Feeling tired or having little energy: nearly every day 5. Poor appetite or overeating: more than half the days 6. Feeling bad about yourself - or that you are a failure or have let yourself or your family down: more than half the days 7. Trouble concentrating on things, such as reading the newspaper or watching television: more than half the days 8. Moving or speaking so slowly that other people could have noticed. Or the opposite - being so fidgety or restless that you have been moving around a lot more than usual: nearly every day 9. Thoughts that you would be better off or of hurting yourself in some way: not at all Total score: 19 Depression Screening Interpretation: Positive (no suicidal thoughts) Depression Screening Follow-up: Existing condition, In treatment and Follow-up Visit Requested Depression Screening Done: Yes 57428 - PHQ-9 Billing: Yes Source: Developed by Drs. Peter Moreno, Yanna Madrigal, Christopher Lee and colleagues, with an educational ruslan from [employer]. Thrive Questionnaire Date Thrive assessed: 10/20/24 I am a: Patient What is your living situation today?: I have a steady place to live Within the past 12 months, did the food you bought not last and you didn't have the money to get more?: Sometimes True Within the past 12 months, did you worry whether your food would run out before you got money to buy more?: I choose not to answer this question Do you have trouble paying for medicines?: No Do you have trouble getting transportation to medical appointments?: No Do you have trouble paying your heating and electricity bill?: No Do you have trouble taking care of your child, family member or friend?: No Do you have trouble with day-to-day activities such as bathing, preparing meals, shopping, managing finances, etc.?: Yes Are you currently unemployed and looking for a job?: No Are you interested in more education?: No Please select the resources that you would like help with: Daily support Currently or been in a relationship where the following occur: No concerns reported THRIVE Score: 1 AUDIT C Alcohol Use Questionnaire (AUDIT-C) 1. How often do you have a drink containing alcohol?: Never Total Score: 0 Score Reviewed/Action Taken: No KAYLA-7 AMB Questionnaire KAYLA-7 Date KAYLA - 7 assessed: 10/20/24 Feeling nervous, anxious, or on edge: 2 = More than half the days Not being able to stop or control worryin = More than half the days Worrying too much about different things: 2 = More than half the days Trouble relaxin = Several days Being so restless that it is hard to sit still: 1 = Several days Becoming easily annoyed or irritable: 1 = Several days Feeling afraid as if something awful might happen: 2 = More than half the days Total KAYLA-7 score (0-4 normal; 5-9 mild; 10-14 moderate; 15-21 severe): 11 Source: Developed by Drs. Peter Moreno, Yanna Madrigal, Christopher Lee and colleagues, with an educational ruslan from [employer]. KAYLA-7 Assessment Billing KAYLA-7 Assessment Tool: KAYLA-7 Assessment 31238 Review of Systems Const All systems reviewed & are unremarkable except as noted in HPI and below Card Denies chest pain at rest, Denies chest pain with activity, Denies edema, Denies irregular heart rhythm, Denies claudication, Denies dyspnea, Denies dyspnea on exertion, Denies orthopnea, Denies paroxysmal nocturnal dyspnea and Denies slow heart rate Resp Denies cough, Denies dyspnea and Denies dyspnea on exertion GI Denies abdominal pain, Denies change in bowel habits, Denies excessive flatus, Denies nausea and Denies vomiting Denies urinary incontinence, Denies urinary hesitancy and Denies urinary urgency Musc Denies abnormal gait, Denies atrophy, Denies deformity and Denies limited range of motion Neuro Denies abnormal gait, Denies behavioral changes and Denies lack of coordination Psych Denies behavioral changes Physical exam (Primary Care) Vital Signs: Last Vital Signs BP 118/86 10/20/24 16:13 BMI result Body Mass Index 28.7 Tobacco/Smoking Status: Tobacco use Status Tobacco use date assessed 10/20/24 10/20/24 16:17 Patient Tobacco Use Status Never used Tobacco 10/20/24 16:17 e-Cigarette/Vaping Use Never Used 10/20/24 16:17 PHQ-9: PHQ-9 Score PHQ-9: Total score 19 10/20/24 16:35 Depression Screening Interpretation: Positive (no suicidal thoughts) Depression Screening Follow-up: Existing condition, In treatment and Follow-up Visit Requested Thrive Assessment: Date of Thrive Assessment Date Thrive assessed 10/20/24 10/20/24 16:17 Currently or been in a relationship where the following occur: No concerns reported HENMT Head: Yes normal to inspection, Yes normocephalic and Yes atraumatic Ears: external ears normal Eyes General: appearance normal, both eyes and all related structures Eyelids: Yes eyelids normal Conjunctivae: conjunctivae normal Neck Neck: Yes normal visual inspection and Yes supple Resp Effort & Inspection: normal respiratory effort Auscultation: clear to auscultation bilaterally Cardio Jugular venous distension: no JVD Rate: regular rate Rhythm: regular rhythm Heart sounds: S1 normal heart sound present and S2 normal heart sound present GI Inspection: Yes normal to inspection Palpation (GI): Soft to palpation and nontender Auscultation: normal bowel sounds Skin General skin exam: no rashes or lesions noted Neuro General: no focal motor deficits Extrem General: Yes full ROM Psych Appearance: grossly normal Coding Level of Care Code Est Pt Level 3 (41892) Est Pt Prev Care 40-64y(41951) Diagnoses Physical exam Z00.00 Moderate recurrent major depression F33.1 Fibromyalgia M79.7 Additional Codes KAYLA-7 Assessment Billing - KAYLA-7 Assessment Tool: KAYLA-7 Assessment 35995 ([id number]) PHQ-9 - 63357 - PHQ-9 Billing: Yes ([id number]) Time Spent (min) 34 Assessment & Plan Assessment & Plan (1) Physical exam: Code(s): Z00.00 - Encounter for general adult medical examination without abnormal findings Category: Medical (2) Moderate recurrent major depression: Code(s): F33.1 - Major depressive disorder, recurrent, moderate Category: Medical (3) Fibromyalgia: Code(s): M79.7 - Fibromyalgia Category: Medical Plan In this consultation, I addressed the patient's fibromyalgia-associated chronic pain by considering a trial of pregabalin while discontinuing gabapentin. Flexeril is to be continued for muscle relaxation. Current management of hypertension, hyperlipidemia, GERD, and insomnia through metoprolol, atorvastatin, omeprazole, and Myrtazapine should be sustained. The importance of monitoring cholesterol and glucose levels was highlighted, with plans for imminent laboratory testing. The patient agreed to follow up on the unclear tetanus vaccination status. Resuming psychiatric care is necessary for comprehensive management. Patient was informed and verbally consented to the use of an ambient scribe for clinic note documentation during this visit. I engaged the patient in a thorough discussion regarding the management of her fibromyalgia, particularly the introduction of pregabalin as an alternative to gabapentin. We contemplated the need for medication adjustments in light of her adverse response to certain treatments and emphasized the continuation of her effective current medications. The patient was informed about the importance of checking her lab results regarding glucose and cholesterol levels. I clarified the potential implications of not updating her tetanus booster and recommended lab work this week. We reviewed the need to restart psychiatric services and discussed possible future steps for preventive care and health maintenance. Orders: Orders Vitamin D 25-OH Total Today E55.9 - Vitamin D deficiency, unspecified Comprehensive [place]. Panel Fast Today I10 - Essential (primary) hypertension Vitamin B12 and Folate Today E53.8 - Deficiency of other specified B group vitamins Complete Blood Count Auto Diff Today D64.9 - Anemia, unspecified Lipid Panel Today E78.5 - Hyperlipidemia, unspecified Medications: New pregabalin 75 mg PO BID 60 caps 0RF 30 days Refilled cyclobenzaprine 10 mg PO BID PRN 30 tabs 1RF muscle spasm 30 days Discontinued gabapentin Discontinued Reason: Patient Completed Course 400 mg PO BID 90 days 180 caps 0RF Patient Instructions: - Follow the new pregabalin prescription and avoid gabapentin during this period. - Continue using Flexeril at the current dosage, aware of potential drowsiness. - Adhere to current medications: atorvastatin, metoprolol, Myrtazapine, and omeprazole. - Complete the lab work for cholesterol and glucose levels this week. - Consider discussing the status of tetanus booster in the next visit. - Explore options to reconnect with psychiatric services for ongoing mental health support.
[2024-10-20 16:13] VITALS: BP 118/86; BMI 28.7
== END 2024-10-20 16:45 | disposition home or self-care (01) ==
LOC: HO.HMCH 16:02
PROVIDERS: PCP Internal Medicine; Visit Provider Internal Medicine
DX: Z00.00 Encounter for general adult medical examination without abnormal findings (principal); F33.1 Major depressive disorder, recurrent, moderate; M79.7 Fibromyalgia

== ENCOUNTER → 2024-10-20 16:01 | Outpatient (BNVA) | payer OTHER, SELFPAY | PROVIDERS: PCP Internal Medicine; Visit Provider Internal Medicine | DX: Z00.00 Encounter for general adult medical examination without abnormal findings (principal); M79.7 Fibromyalgia; I10 Essential (primary) hypertension; G47.00 Insomnia, unspecified; K21.9 Gastro-esophageal reflux disease without esophagitis; F33.1 Major depressive disorder, recurrent, moderate; E55.9 Vitamin D deficiency, unspecified; E53.8 Deficiency of other specified B group vitamins; D64.9 Anemia, unspecified; E78.5 Hyperlipidemia, unspecified; Z79.899 Other long term (current) drug therapy | CPT/HCPCS: 96127; 99212; 99396 ==

== ENCOUNTER 2024-10-21 12:02 | Outpatient (AMB) | payer OTHER, SELFPAY ==
[2024-10-21 12:06] VITALS: BP 127/76; PULSE 75; O2SAT 100; BMI 29.0
--- NOTE | 2024-10-21 12:06 | A.OFFVIS_ITS ---
Vital Signs 10/21/24 12:06 Height 5 ft 6 in Weight 179 lb 7.3 oz BMI 29.0 BP 127/76 Blood Pressure Location Lt brachial Position Sitting Pulse 75 Pulse Source Pulse Oximeter Pulse Oximetry (%) 100 Oxygen Delivery Method Room Air Intake Visit Reasons: 6 mo f/u GERD< CIC paresis Intake Note: Pt presents to the office today for a 6 month follow up for GERD,CIC Paresis. Allergies No Known Allergies Allergy (Verified 10/21/24 12:09) HPI HPI 6 mo f/u GERD< CIC paresis: Details: Assessment & Plan (1) GERD (gastroesophageal reflux disease): Code(s): K21.9 - Gastro-esophageal reflux disease without esophagitis Category: Medical Qualifiers: Esophagitis presence: esophagitis presence not specified Qualified Code(s): K21.9 - Gastro-esophageal reflux disease without esophagitis (2) Gastroparesis: Code(s): K31.84 - Gastroparesis Category: Medical (3) Chronic idiopathic constipation: Code(s): K59.04 - Chronic idiopathic constipation Category: Medical (4) Tubular adenoma of colon: Comment: 2020 SCOPE REPEAT 5 YEARS. Code(s): D12.6 - Benign neoplasm of colon, unspecified Category: Medical (5) H pylori ulcer: Comment: Stool antigen negative 09/2020 performed at [facility] Code(s): K27.9 - Peptic ulcer, site unspecified, unspecified as acute or chronic, without hemorrhage or perforation; B96.81 - Helicobacter pylori [H. pylori] as the cause of diseases classified elsewhere Category: Medical Plan SONIA #Christopher She continues on Linzess 290 and bisacodyl 1 qhs with simethicone and omeprazole in the morning and famotidine at night, Reglan 10 mg 4 times a day, dicyclomine. She is now satisfied with her GI regimen. She asks about her liver monitoring, and I again inform her that I have handed this off to her PCP to monitor as her transaminases have been normal for an extended period of time. Return office visit in 6 month TODAYV VISIT Cymraes #Natasha Arnie She continues on Linzess 290 and bisacodyl 1 qhs with simethicone and omeprazole in the morning and famotidine at night, Reglan 10 mg 4 times a day, dicyclomine. She is now satisfied with her GI regimen. she has been having more trouble with roids recently even though she feels her CIC regimen is okay. Sending proctosol. She is due for labs and ultrasound for her HILTON monitoring and we will get these ordered. She is due for repeat screening colonoscopy. She has occasional troubles with palpitations but has medication to control it and she denies any respiratory problems. There are no prior problems with anesthesia or sedation. There are no infectious disease problems. She had a TA in 2019 and is due for we scope. ROV 6 mos. 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 Mother Pulmonary hypertension CVD (cardiovascular disease) HTN (hypertension) Maternal Aunt Breast cancer Maternal Aunt Breast cancer Paternal Aunt Lymphoma Paternal Uncle Gastric cancer Other Cancer Diabetes Urinary incontinence Social History Household Members: Family Housing: Apartment Alcohol intake: never Patient Tobacco Use Status: Never used Tobacco e-Cigarette/Vaping Use: Never Used Second Hand Smoke Exposure: No service: No Current occupational status: unemployed Cognitive needs: Yes Hearing needs: No Vision needs: Yes Review of Systems Const Denies fatigue, Denies fever(s), Denies night sweats, Denies poor appetite and Denies weight loss ENT Reports Normal hearing present, Denies dental pain, Denies dysphagia, Denies hearing loss, Denies mouth pain, Denies odynophagia, Denies throat swelling, Denies tongue swelling and Reports other (Dentition adequate) Card Reports palpitations Resp Reports no additional complaints GI Details: Denies abdominal pain, Denies melena, Denies bloating, Denies hematochezia, Reports constipation, Denies GI cramping, Denies dysphagia, Denies excessive flatus, Reports early satiety, Reports heartburn, Denies diarrhea, Denies nausea, Denies odynophagia, Denies vomiting and Denies hematemesis Reports urinary incontinence and Reports urinary urgency Musc Reports abnormal gait, Reports back pain and Reports arthralgias Skin/Breast Denies pruritus, Denies lesions, Denies rash and Denies jaundice Neuro Reports Normal hearing present, Denies Abnormal speech present and Reports abnormal gait Endo Denies fatigue and Reports palpitations Aller/Immun Denies throat swelling and Denies tongue swelling Physical Exam Vital Signs: Last Vital Signs Pulse 75 10/21/24 12:06 BP 127/76 10/21/24 12:06 Pulse Ox 100 10/21/24 12:06 Oxygen Delivery Method Room Air 10/21/24 12:06 BMI result Body Mass Index 29.0 Const General: cooperative, no acute distress, well developed and well groomed Nutritional Appearance: well nourished and overweight Orientation/consciousness: oriented to person, oriented to place and oriented to time Limitations: language barrier and ambulation with cane HEENT Head: Yes normocephalic and Yes atraumatic Eyes General: appearance normal, both eyes and all related structures Pupils: Equal, round and reactive pupils present Neck Neck: Yes normal visual inspection and Yes no lymphadenopathy Thyroid: Thyroid normal Resp Effort & Inspection: normal respiratory effort and able to speak in complete sentences Auscultation: clear to auscultation bilaterally Cardio Rate: regular rate Rhythm: regular rhythm Heart sounds: Normal, physiologic split S2 sound present Peripheral pulses: radial pulses present and posterior tibial pulses present GI Inspection: No distended, No Abdominal panniculus present and Yes obesity Palpation (GI): Soft to palpation, nontender, no guarding, not rigid and No hepatosplenomegaly present Percussion: Yes normal to percussion Auscultation: normal bowel sounds Rectal Exam - Female: deferred Skin General skin exam: no rashes or lesions noted, turgor normal, skin not dry, no jaundice, No spider nevi and no striae Rashes: no rashes Nails: normal Neuro General: oriented to person, oriented to place and oriented to time Cranial nerves: Yes Equal, round and reactive pupils present and Yes Normal hearing present Speech: No Abnormal speech present Extrem General: Yes normal to inspection, No clubbing, No cyanosis and No edema Psych Appearance: grossly normal and well kempt Mental Status: mental status grossly normal Speech and movement: Normal speech and movement present Affect: normal affect Attitude: cooperative Thought process: Normal thought process present and not confabulating Thought content: Normal thought content present Insight: Fair insight present (Psych) Judgement: Fair judgement present (Psych) Assessment & Plan Assessment & Plan (1) HIL[place] (nonalcoholic steatohepatitis): Comment: BASELINE LABS; 12/2018 alpha fetoprotein 2.5, ultrasound shows fatty replacement with no tumor, negative hepatitis a B and C screen, AST/ALT 17/43 with the rest the liver panel normal, TSH normal, negative autoimmune workup, ferritin 403. CURRENT LABS 04/16/23 the WBC 8.0 Hgb 14.0 Hct 42.7 Plt Count 372 Estimated GFR > 60 Hgb A1c (Clinic) 6.5 H Total Bilirubin 0.3 AST 10 ALT 19 Alkaline Phosphatase [address] ABD AND PELVIS 07/27/22 FINDINGS: LUNG BASES: Normal? LIVER, GALLBLADDER, BILIARY TREE: Enlarged fatty liver with fatty infiltration. Normal gallbladder. No biliary duct dilatation.? PANCREAS: Normal? SPLEEN: Normal? ADRENAL GLANDS AND KIDNEYS: Normal adrenal glands. Stable 2 cm fatty lesion exophytic to the lower pole of the left kidney suggestive angiomyolipoma.? BOWEL LOOPS: Normal. Small umbilical hernia containing fat. LYMPH NODES: Normal. VASCULAR: Unremarkable. BONES: Degenerative changes of the spine.? CT/CT abdomen wo IV con IMPRESSION: Stable 2 cm fatty lesion exophytic to the lower pole of the left kidney suggestive of a benign angiomyolipoma. Enlarged fatty liver. Code(s): K75.81 - Nonalcoholic steatohepatitis (HIL[place]) Category: Medical (2) GERD (gastroesophageal reflux disease): Code(s): K21.9 - Gastro-esophageal reflux disease without esophagitis Category: Medical Qualifiers: Esophagitis presence: esophagitis presence not specified Qualified Code(s): K21.9 - Gastro-esophageal reflux disease without esophagitis (3) Chronic idiopathic constipation: Code(s): K59.04 - Chronic idiopathic constipation Category: Medical (4) Pre-op examination: Code(s): Z01.818 - Encounter for other preprocedural examination Category: Medical (5) Gastroparesis: Code(s): K31.84 - Gastroparesis Category: Medical (6) Bleeding hemorrhoids: Code(s): K64.9 - Unspecified hemorrhoids Category: Medical Plan Cymraes #Natasha Live She continues on Linzess 290 and bisacodyl 1 qhs with simethicone and omeprazole in the morning and famotidine at night, Reglan 10 mg 4 times a day, dicyclomine. She is now satisfied with her GI regimen. she has been having more trouble with roids recently even though she feels her CIC regimen is okay. Sending proctosol. She is due for labs and ultrasound for her HIL[place] monitoring and we will get these ordered. She is due for repeat screening colonoscopy. She has occasional troubles with palpitations but has medication to control it and she denies any respiratory problems. There are no prior problems with anesthesia or sedation. There are no infectious disease problems. She had a TA in 2019 and is due for we scope. ROV 6 mos. Orders: Orders Complete Blood Count Auto Diff Today Z01.818 - Encounter for other preprocedural examination US abdomen complete Today K31.84 - Gastroparesis, K64.9 - Unspecified hemorrhoids, K75.81 - Nonalcoholic steatohepatitis ([place]IL[place]) Comprehensive Met. Panel Today Z01.818 - Encounter for other preprocedural examination Colonoscopy - GI Use Only Today Z01.818 - Encounter for other preprocedural examination Medications: New dicyclomine 20 mg (2 x 10 mg) PO QID PRN 120 caps 6RF abdominal pain R10.9 - Unspecified abdominal pain Refilled hydrocortisone 2.5% (Proctosol HC) 1 appl UT BID 30 grams 6RF hemorrhoids K64.9 - Unspecified hemorrhoids famotidine (Pepcid) 40 mg PO BEDTIME 30 tabs 6RF linaclotide (Linzess) 290 mcg PO QAM 30 days 30 caps 6RF K59.04 - Chronic idiopathic constipation metoclopramide HCl (Reglan) 10 mg PO QIDACHS 120 tabs 6RF K31.84 - Gastroparesis omeprazole 40 mg PO DAILY 90 caps 2RF simethicone after meals 180 mg PO QID 30 days 120 caps 3RF docusate sodium (Colace) 100 mg PO .DAILY WITH FOOD PRN 90 caps 0RF constipation K59.04 - Chronic idiopathic constipation bisacodyl (Dulcolax (bisacodyl)) 10 mg (2 x 5 mg) PO BEDTIME 30 days 60 tabs 6RF K59.04 - Chronic idiopathic constipation Coding Level of Care Code Est Pt Level 4 (90973) Diagnoses HIL[place] (nonalcoholic steatohepatitis) K75.81 Gastroesophageal reflux disease, unspecified whether esophagitis present K21.9 Esophagitis presence: esophagitis presence not specified Chronic idiopathic constipation K59.04 Pre-op examination Z01.818 Gastroparesis K31.84 Bleeding hemorrhoids K64.9 Time Spent (min) 34
--- OUTSIDE RECORDS SUMMARY | 2024-10-21 13:23 | XMS_ITS | Encounter Summary ---
Author Organization [facility] Address [address] [place] [address] Phone Care Team Providers Care Increment Manager Name Role Phone Mara Romero MD Primary Care Provider [phone] Encounter Details Date Type Department Care Team (Late st Contact Info) Description 12/23/2020 Orders Only [facility] [address] [place] [id number] Rishabh Fernandez MD Angiolipoma; Hypertension Social History [...] Hypertension documented in this encounter Care Teams Increment Manager Relationship Specialty Start Date End Date Mara Romero MD [address] [place] [address] PCP - General 06/21/20 documented as of this encounter
--- OUTSIDE RECORDS SUMMARY | 2024-10-21 13:23 | XMS_ITS | Clinical Summary ---
Author Organization [facility] Address [address] [facility] [address] [place] [address] Phone Care Team Providers Care Mac Developer Name Role Phone Mara Romero MD Primary Care Provider Allergies No known active allergies Medications bisacodyl [...] Diagnosed Date Fibromyalgia 12/03/2020 Main spoken language Chinese 12/03/2020 Angiolipoma 11/23/2020 Supraventricular tachycardia 11/23/2020 Hypertension [...] patient's age to complete this topic Insurance [facility] Medicaid Ctr Medicaid Care Teams Mac Developer Relationship Specialty Start Date End Date Mara Romero MD [address] [place], [place] PCP - General 06/21/20
--- OUTSIDE RECORDS SUMMARY | 2024-10-21 13:23 | XMS_ITS | Clinical Summary ---
Author Organization [facility] [employer] Address [address] [place] [address] Phone Care Team Providers Care Line Construction Supervisor Name Role Phone Unavailable Primary Care Provider Unavailabl e Surgical History Surgery Date Site/Laterality Comments HYSTERECTOMY PROCEDURE: HISTORICAL HYSTERECTOMY COLONOSCOPY PROCEDURE: HISTORICAL COLONOSCOPY; COMMENT: + polyps, BREAST SURGERY Right PROCEDURE: [place] UNLISTED PROCEDURE BREAST; COMMENT: 2008 biopsies BREAST [...]
== END 2024-10-21 12:57 | disposition home or self-care (01) ==
LOC: HO.HGI 12:03
PROVIDERS: PCP Internal Medicine; Visit Provider Nurse Practitioner
DX: K75.81 Nonalcoholic steatohepatitis (NASH) (principal); K21.9 Gastro-esophageal reflux disease without esophagitis; K59.04 Chronic idiopathic constipation; K31.84 Gastroparesis
CPT/HCPCS: 99214

== ENCOUNTER → 2024-10-21 12:02 | Outpatient (BNVA) | payer OTHER, SELFPAY | PROVIDERS: PCP Internal Medicine; Visit Provider Nurse Practitioner | DX: Z01.818 Encounter for other preprocedural examination (principal); K21.9 Gastro-esophageal reflux disease without esophagitis; K59.04 Chronic idiopathic constipation; K75.81 Nonalcoholic steatohepatitis (NASH); K31.84 Gastroparesis; K64.9 Unspecified hemorrhoids | CPT/HCPCS: 99212 ==

== ENCOUNTER 2024-10-28 14:01 | Outpatient (REF) | payer OTHER, SELFPAY ==
--- NOTE | ~2024-10-28 | US_ITS ---
EXAMINATION: US KIDNEY BILATERAL HISTORY: I10 - Essential (primary) hypertension TECHNIQUE: Real-time grayscale ultrasound imaging of the kidneys was performed and images were reviewed. COMPARISON: Comparison is made with the prior examination dated 06/12/2023. Correlation is also made with a CT of the abdomen without contrast dated 07/24/2022. FINDINGS: Right kidney: The right kidney measures 10.5 x 3.9 x 4.7 cm. Renal parenchymal echotexture and thickness are normal. There are no masses. There is no hydronephrosis or renal calculi. Left Kidney: The left kidney measures 11.0 x 4.4 x 4.2 cm. Renal parenchymal echotexture and thickness are normal. Again seen is an exophytic echogenic mass at the lower pole measuring 1.6 x 1.9 x 2.3 cm consistent with an angiomyolipoma, as seen on prior imaging. There is no hydronephrosis or renal calculi. US/US renal BI IMPRESSION: Stable 1.6 x 1.9 x 2.3 cm left lower pole renal angiomyolipoma. Otherwise unremarkable renal ultrasound. Electronically signed by: Peter Robles MD 10/28/2024 03:22 PM EDT
--- OUTSIDE RECORDS SUMMARY | 2024-10-28 15:23 | XMS_ITS | Clinical Summary ---
Author Organization [facility] Address [address] [facility] [address] [place] [address] Phone Care Team Providers Care Ground Worker Name Role Phone Mara Romero MD Primary Care Provider [phone] Allergies No known active allergies Medications bisacodyl [...] Diagnosed Date Fibromyalgia 12/03/2020 Main spoken language Portuguese 12/03/2020 Angiolipoma 11/23/2020 Supraventricular tachycardia 11/23/2020 Hypertension [...] patient's age to complete this topic Insurance [facility] Medicaid Ctr Medicaid Care Teams Ground Worker Relationship Specialty Start Date End Date Mara Romero MD [address] [place], [place] PCP - General 06/21/20
--- OUTSIDE RECORDS SUMMARY | 2024-10-28 15:23 | XMS_ITS | Clinical Summary ---
Author Organization [facility] [employer] Address [address] [facility] [place] [address] Phone Care Team Providers Care Backup Operator Name Role Phone Unavailable Primary Care Provider Unavailabl e Surgical History Surgery Date Site/Laterality Comments HYSTERECTOMY PROCEDURE: HISTORICAL HYSTERECTOMY COLONOSCOPY PROCEDURE: HISTORICAL COLONOSCOPY; COMMENT: + polyps, BREAST SURGERY Right PROCEDURE: [place] UNLISTED PROCEDURE BREAST; COMMENT: 2008 biopsies BREAST [...]
--- OUTSIDE RECORDS SUMMARY | 2024-10-28 15:23 | XMS_ITS | Encounter Summary ---
Author Organization [facility] Address [address] [place] [address] Phone Care Team Providers Care Men'S Locker Room Attendant Name Role Phone Mara Romero MD Primary Care Provider [phone] Encounter Details Date Type Department Care Team (Late st Contact Info) Description 12/23/2020 Orders Only [facility] [address] [place] [phone] Rishabh Fernandez MD Angiolipoma; Hypertension Social History [...] Hypertension documented in this encounter Care Teams Men'S Locker Room Attendant Relationship Specialty Start Date End Date Mara Romero MD [address] [place] [address] PCP - General 06/21/20 documented as of this encounter
== END 2024-10-28 14:02 | disposition home or self-care (01) ==
LOC: HO.US 14:01
PROVIDERS: PCP Internal Medicine; Visit Provider Internal Medicine Nephrology
DX: I10 Essential (primary) hypertension (principal); D17.71 Benign lipomatous neoplasm of kidney
CPT/HCPCS: 76775

== ENCOUNTER → 2024-10-28 14:03 | Outpatient (BNV) | payer OTHER, SELFPAY | PROVIDERS: PCP Internal Medicine; Visit Provider Radiology Diagnostic Radiology | DX: D17.71 Benign lipomatous neoplasm of kidney (principal) | CPT/HCPCS: 76775 ==

== ENCOUNTER 2024-11-07 06:33 | Outpatient (REF) | payer OTHER, SELFPAY ==
--- OUTSIDE RECORDS SUMMARY | 2024-11-07 06:36 | XMS_ITS | Clinical Summary ---
Author Organization [facility] [employer] Address [address] [facility] [address] Phone Care Team Providers Care Water Reclamation Systems Operator Name Role Phone Unavailable Primary Care Provider Unavailabl e Surgical History Surgery Date Site/Laterality Comments HYSTERECTOMY PROCEDURE: HISTORICAL HYSTERECTOMY COLONOSCOPY PROCEDURE: HISTORICAL COLONOSCOPY; COMMENT: + polyps, BREAST SURGERY Right PROCEDURE: [place] UNLISTED PROCEDURE BREAST; COMMENT: 2008 biopsies BREAST [...]
[2024-11-07 06:53] LABS: MANUAL DIFF FLAG NO
[2024-11-07 07:08] LABS: Basophils Absolute Auto 0.1 X10*3/uL (0.0-0.2); Basophils Percent Auto 0.8 % (0-2); Eosinophils Absolute Auto 0.1 X10*3/uL (0.0-0.4); Eosinophils Percent Auto 1.5 % (0-4); Hematocrit 40.1 % (37.0-47.0); Hemoglobin 13.2 g/dl (12.0-16.0); Imm Gran Abs Auto 0.02 X10*3/uL (0.00-0.03); Imm Gran Pct Auto 0.3 % (0.0-0.4); Lymphocytes Absolute Auto 3.7 X10*3/uL (1.2-4.9); Lymphocytes Percent Auto 47.4 % (20-40); Mean Corpuscular HGB Conc 32.9 g/dl (31.0-35.0); Mean Corpuscular Hemoglobin 27.2 pg (27.0-33.0); Mean Corpuscular Volume 82.7 fL (80.0-98.0); Mean Platelet Volume 10.6 fL (9.4-12.3); Monocytes Absolute Auto 0.6 X10*3/uL (0.1-1.2); Neutrophils Absolute Auto 3.3 x10*3/uL (2.0-8.3); Platelet Count 304 X10*3/uL (160-400); Red Blood Count 4.85 X10*6/uL (4.20-5.50); Red Cell Distribution Width 14.5 % (11.0-16.0); White Blood Count 7.8 X10*3/uL (4.8-10.8)
[2024-11-07 07:41] LABS: Alanine Aminotransferase 23 U/L (0-31); Albumin Level 4.4 g/dL (3.5-5.0); Alkaline Phosphatase 61 U/L (39-117); Anion Gap 16 (12-20); Aspartate Amino Transferase 16 U/L (5-31); Bilirubin Total 0.2 mg/dL (0.0-1.0); Blood Urea Nitrogen 19 mg/dL (9-16); Calcium 9.7 mg/dL (8.4-10.2); Carbon Dioxide 23 mmol/L (22-29); Chloride 106 mmol/L (96-108); Cholesterol 264 mg/dL (<200); Estimated Glomerular Filt Rate > 60; Glucose Fasting 128 mg/dL (60-99); Glucose Random 128 mg/dL (60-115); HDL Cholesterol 46 mg/dL (>40); LDL Cholesterol Calculated 187 mg/dL (<100); Potassium 3.6 mmol/L (3.3-5.1); Sodium 141 mmol/L (135-145); Total Protein 7.5 g/dL (6.5-8.0); Triglycerides 155 mg/dL (<150)
[2024-11-07 07:54] LABS: Vitamin D 25-OH Total 37.1 ng/mL (>30)
[2024-11-07 08:07] LABS: Folate 6.4 ng/mL (> or = 4.0); Vitamin B12 467 pg/mL (200-900)
== END 2024-11-07 06:34 | disposition home or self-care (01) ==
LOC: HO.LAB 06:33
PROVIDERS: Absent Provider Internal Medicine; PCP Internal Medicine; Visit Provider Nurse Practitioner
DX: Z01.818 Encounter for other preprocedural examination (principal); M17.12 Unilateral primary osteoarthritis, left knee; E55.9 Vitamin D deficiency, unspecified; E78.5 Hyperlipidemia, unspecified; E53.8 Deficiency of other specified B group vitamins
CPT/HCPCS: 36415; 80053; 80061; 82306; 82607; 82746; 85025

== ENCOUNTER 2024-11-28 13:46 | Outpatient (REF) | payer OTHER, SELFPAY ==
--- NOTE | ~2024-11-28 | MM_ITS ---
EXAMINATION: MM SCREENING DIGITAL BREAST TOMOSYNTHESIS, BILATERAL CLINICAL INFORMATION: Screening. Asymptomatic. COMPARISON: Mammography: Comparison is made with available priors TECHNIQUE: Digital breast mammography with tomosynthesis is performed in both the craniocaudal and mediolateral oblique views along with computer-aided detection (CAD). FINDINGS: There are scattered areas of fibroglandular density (ACR BI-RADS breast composition Category b). Left marker clips. There are no significant masses, abnormal calcifications, or other abnormalities. MM/MM tomosynthesis screening BI IMPRESSION: No mammographic evidence of malignancy. ASSESSMENT: BI-RADS BI-RADS 2 - Benign Findings RECOMMENDATION: Routine annual mammography screening. 1 year F/U This examination should not preclude the clinical evaluation of a suspicious palpable abnormality. This patient's information was entered into a reminder system with a target due date for their next mammogram. Electronically signed by: Mariangel Prieto DO 12/04/2024 02:11 PM EDT
--- OUTSIDE RECORDS SUMMARY | 2024-11-28 13:48 | XMS_ITS | Clinical Summary ---
Author Organization [facility] [employer] Address [address] [facility] [place] [address] Phone Care Team Providers Care Channel Development Director Name Role Phone Unavailable Primary Care Provider Unavailabl e Surgical History Surgery Date Site/Laterality Comments HYSTERECTOMY PROCEDURE: HISTORICAL HYSTERECTOMY COLONOSCOPY PROCEDURE: HISTORICAL COLONOSCOPY; COMMENT: + polyps, BREAST SURGERY Right PROCEDURE: CT UNLISTED PROCEDURE BREAST; COMMENT: 2008 biopsies BREAST [...] for bilateral breast pain. No family history of breast cancer Comparison: Multiple [...] is performed using a linear array transducer. Targeted right breast ultrasound was performed from 9:00 to 3:00 in area of clinical pain/palpable abnormality. Targeted left breast ultrasound was performed from 11:00 to 4:00 in area of clinical pain/palpable abnormality. Real-time sonographic scanning was also performed by the [...]
== END 2024-11-28 13:47 | disposition home or self-care (01) ==
LOC: HO.MAMMO 13:46
PROVIDERS: PCP Internal Medicine; Visit Provider Internal Medicine
DX: Z12.31 Encounter for screening mammogram for malignant neoplasm of breast (principal)
CPT/HCPCS: 77063; 77067

== ENCOUNTER → 2024-11-28 14:00 | Outpatient (BNV) | payer OTHER, SELFPAY | PROVIDERS: PCP Internal Medicine; Visit Provider Internal Medicine | DX: Z12.31 Encounter for screening mammogram for malignant neoplasm of breast (principal) | CPT/HCPCS: 77063; 77067 ==

== ENCOUNTER 2024-12-05 07:41 | Outpatient (REF) | payer OTHER, SELFPAY ==
--- NOTE | ~2024-12-05 | US_ITS ---
CLINICAL HISTORY: K75.81 - Nonalcoholic steatohepatitis ([place]IL[place]) US abdomen complete Comparison: None provided Findings: The visualized pancreas is normal. The aorta and inferior vena cava are normal caliber. Increased hepatic echogenicity. There is no intrahepatic bile duct dilatation. The common duct is 6 mm in diameter. The gallbladder is normal. There is no sonographic Macias sign. The main portal vein is antegrade. The right kidney is 10.5 cm in length. The left kidney is 10.8 cm in length. The dry heat cabinet attendant measures a homogeneously hyperechoic mass arising from the lower pole of the left kidney possibly representing an AML measuring 2.3 x 2.3 x 2.3 cm. The spleen is normal. No ascites. IMPRESSION: 1. Hepatic steatosis. 2. 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 Confirmation with MRI or CT is recommended. This document has been electronically signed by: Nereida Womack MD on 12/06/2024 08:18:23
--- OUTSIDE RECORDS SUMMARY | 2024-12-05 07:42 | XMS_ITS | Clinical Summary ---
Author Organization [facility] [email or web address] Address [address] [facility] [place] [address] Phone Care Team Providers Care Newborn Hearing Screener Name Role Phone Unavailable Primary Care Provider Unavailabl e Surgical History Surgery Date Site/Laterality Comments HYSTERECTOMY PROCEDURE: HISTORICAL HYSTERECTOMY COLONOSCOPY PROCEDURE: HISTORICAL COLONOSCOPY; COMMENT: + polyps, BREAST SURGERY Right PROCEDURE: [place] UNLISTED PROCEDURE BREAST; COMMENT: 2008 biopsies BREAST [...]
== END 2024-12-05 07:42 | disposition home or self-care (01) ==
LOC: HO.US 07:41
PROVIDERS: PCP Internal Medicine; Visit Provider Nurse Practitioner
DX: K75.81 Nonalcoholic steatohepatitis (NASH) (principal); K64.9 Unspecified hemorrhoids; K31.84 Gastroparesis
CPT/HCPCS: 76700

== ENCOUNTER → 2024-12-05 07:44 | Outpatient (BNV) | payer OTHER, SELFPAY | PROVIDERS: PCP Internal Medicine; Visit Provider Radiology Diagnostic Radiology | DX: D17.71 Benign lipomatous neoplasm of kidney (principal) | CPT/HCPCS: 76700 ==

== ENCOUNTER 2025-03-25 13:05 | Outpatient (AMB) | payer OTHER, SELFPAY ==
--- NOTE | 2025-03-25 13:32 | HO.NEPHOV ---
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 Her last ultrasound did not show any significant increase in the size of angiolipoma. She does not have any flank pain or hematuria. Her blood pressure is well controlled on the current medications. She has no weight loss or night sweats. She denies any chest pain, shortness of breath, hemoptysis, paroxysmal nocturnal dyspnea, orthopnea or pedal edema . Her renal functions have been stable [facility] Medical History (Updated 10/21/24 @ 13:03 by SARAHY Yates) Essential hypertension Osteoarthritis Patellofemoral arthritis of left knee Osteoarthritis of left knee Left knee pain Left leg pain Angiolipoma Nausea and vomiting Abdominal pain Retention of urine Left renal mass Disc degeneration, lumbar Knee osteoarthritis Urinary incontinence Diverticulitis Hemorrhoids Skin lesion Abdominal cramping Urinary urgency Low back pain Diarrhea Skin change Physical exam Diabetes Androgenic alopecia Angiomyolipoma of kidney Urinary incontinence Hair loss Spondylosis of lumbar spine Headache Polyarthralgia Vomiting and diarrhea Normal colonoscopy Tachycardia Fibromyalgia Dyspepsia Surgical History Hx of colonoscopy (~2010) History of esophagogastroduodenoscopy (EGD) (~2017) History of breast biopsy (~2005) Tubal ligation status History of hysterectomy Family History Father No problems noted. Mother Pulmonary hypertension CVD (cardiovascular disease) HTN (hypertension) Maternal Aunt Breast cancer Maternal Aunt Breast cancer Paternal Aunt Lymphoma Paternal Uncle Gastric cancer Other Cancer Diabetes Urinary incontinence Social History Household Members: Family Housing: Apartment Alcohol intake: never Patient Tobacco Use Status: Never used Tobacco e-Cigarette/Vaping Use: Never Used Second Hand Smoke Exposure: No service: No Current occupational status: unemployed Cognitive needs: Yes Hearing needs: No Vision needs: Yes Review of Systems Const All systems reviewed & are unremarkable except as noted in HPI and below Physical Exam Const General: comfortable and no acute distress Orientation/consciousness: patient oriented x3 HEENT Head: Yes normocephalic Mouth: Normal oral and palatal mucosa present Eyes EOM: EOMs intact bilaterally Neck Neck: Yes supple Resp Auscultation: clear to auscultation bilaterally Cardio Jugular venous distension: no JVD Rate: regular rate GI Palpation (GI): Soft to palpation Auscultation: normal bowel sounds General: Yes no CVA tenderness Back/Spine/Pelvis Back: no CVA tenderness Skin General skin exam: no rashes or lesions noted Neuro General: patient oriented x3 and moves all extremities Extrem General: Yes no pedal edema Results Reviewed Nephrology Results: Hgb, (12.0-16.0) 13.2 g/dl 11/07/24 WBC, (4.8-10.8) 7.8 X10*3/uL 11/07/24 Plt Count, (160-400) 304 X10*3/uL 11/07/24 Sodium, (135-145) 141 mmol/L 11/07/24 Potassium, (3.3-5.1) 3.6 mmol/L 11/07/24 Chloride, (96-108) 106 mmol/L 11/07/24 Carbon Dioxide, (22-29) 23 mmol/L 11/07/24 BUN, (9-16) 19 mg/dL H 11/07/24 Creatinine, (0.5-1.4) 0.76 mg/dL 11/07/24 Calcium, (8.4-10.2) 9.7 mg/dL 11/07/24 Urine Protein, (Neg-Trace) 30 (1+) mg/dL H 10/15/24 Urine Creatinine 247.24 mg/dL 10/15/24 Protein/Creatinin Ratio, (<0.2) 0.14 10/15/24 Renal US 10/28/24 Assessment & Plan Assessment & Plan (1) Angiomyolipoma of kidney: Code(s): D17.71 - Benign lipomatous neoplasm of kidney Category: Medical Plan Melanie had an incidental finding of angiomyolipoma in the kidney. I ordered a F/U CT . She has no history of renal dysfunction, hematuria, flank pain, weight loss or night sweats. Her last ultrasound did not show any increase in size of the angiomyolipoma. If the angiomyolipoma is increasing in size, I plan to send her to Dr. Tin Espinoza in the future if it needs to be embolized. Her blood pressure is at goal ever since her medications were adjusted at the last visit. I did not make any medication changes today. All questions answered. Follow-up given Orders: Orders Creatinine 6 Months D17. - Benign lipomatous neoplasm of kidney Blood Urea Nitrogen 6 Months D17. - Benign lipomatous neoplasm of kidney Electrolytes 6 Months D17. - Benign lipomatous neoplasm of kidney Protein Creatinine Ratio, Ur 6 Months D17. - Benign lipomatous neoplasm of kidney CT abdomen w IV con Today - Benign lipomatous neoplasm of kidney Coding Level of Care Code Est Pt Level 4 (37396) Diagnoses Angiomyolipoma of kidney
[2025-03-25 13:38] VITALS: BP 110/80; PULSE 87; O2SAT 99; BMI 28.0
== END 2025-03-25 13:52 | disposition home or self-care (01) ==
LOC: HO.HKA 13:06
PROVIDERS: PCP Internal Medicine; Visit Provider Internal Medicine Nephrology
DX: D17.71 Benign lipomatous neoplasm of kidney (principal)
CPT/HCPCS: 99214

== ENCOUNTER → 2025-03-25 13:05 | Outpatient (BNVA) | payer OTHER, SELFPAY | PROVIDERS: PCP Internal Medicine; Visit Provider Internal Medicine Nephrology | DX: D17.71 Benign lipomatous neoplasm of kidney (principal) | CPT/HCPCS: 99212 ==

== ENCOUNTER 2025-04-21 12:44 | Outpatient (AMB) | payer OTHER, SELFPAY ==
--- NOTE | 2025-04-21 12:48 | MHC.OFFVIS ---
Vital Signs 04/21/25 12:57 Height 5 ft 6 in Weight 172 lb BMI 27.8 BP 130/82 Blood Pressure Location Rt brachial Position Sitting Pulse 74 Pulse Source Pulse Oximeter Pulse Oximetry (%) 100 Oxygen Delivery Method Room Air Intake Visit Reasons: Recall colo/HILTON, CIC, GERD Intake Note: Est pt for mgmt of GERD, CIC, and HILTON. Discuss recall colo/egd. Last colo in 2019 w/ Dr. Mejia. CC; C.O. epigastric pain, nausea, and GERD persistence despite current therapy. Pt states that she does still notice some improvement with the PPI, but that it is not as helpful as it once was. Anvil Seating Press Operator Required: Yes Anvil Seating Press Operator Services: Anvil Seating Press Operator Present Anvil Seating Press Operator Name: [id number] Mayte Information Interpreted: clinical only Accompanied by: Self / Same As Patient Allergies No Known Allergies Allergy (Verified 04/21/25 13:02) HPI HPI Recall colo/HILTON, CIC, GERD: Details: Assessment & Plan (1) HILTON (nonalcoholic steatohepatitis): Comment: BASELINE LABS; 12/2018 alpha fetoprotein 2.5, ultrasound shows fatty replacement with no tumor, negative hepatitis a B and C screen, AST/ALT 17/43 with the rest the liver panel normal, TSH normal, negative autoimmune workup, ferritin 403. CURRENT LABS 04/16/23 the WBC 8.0 Hgb 14.0 Hct 42.7 Plt Count 372 Estimated GFR > 60 Hgb A1c (Clinic) 6.5 H Total Bilirubin 0.3 AST 10 ALT 19 Alkaline Phosphatase [address] ABD AND PELVIS 07/27/22 FINDINGS: LUNG BASES: Normal? LIVER, GALLBLADDER, BILIARY TREE: Enlarged fatty liver with fatty infiltration. Normal gallbladder. No biliary duct dilatation.? PANCREAS: Normal? SPLEEN: Normal? ADRENAL GLANDS AND KIDNEYS: Normal adrenal glands. Stable 2 cm fatty lesion exophytic to the lower pole of the left kidney suggestive angiomyolipoma.? BOWEL LOOPS: Normal. Small umbilical hernia containing fat. LYMPH NODES: Normal. VASCULAR: Unremarkable. BONES: Degenerative changes of the spine.? CT/CT abdomen wo IV con IMPRESSION: Stable 2 cm fatty lesion exophytic to the lower pole of the left kidney suggestive of a benign angiomyolipoma. Enlarged fatty liver. Code(s): K75.81 - Nonalcoholic steatohepatitis (HILTON) Category: Medical (2) GERD (gastroesophageal reflux disease): Code(s): K21.9 - Gastro-esophageal reflux disease without esophagitis Category: Medical Qualifiers: Esophagitis presence: esophagitis presence not specified Qualified Code(s): K21.9 - Gastro-esophageal reflux disease without esophagitis (3) Chronic idiopathic constipation: Code(s): K59.04 - Chronic idiopathic constipation Category: Medical (4) Pre-op examination: Code(s): Z01.818 - Encounter for other preprocedural examination Category: Medical (5) Gastroparesis: Code(s): K31.84 - Gastroparesis Category: Medical (6) Bleeding hemorrhoids: Code(s): K64.9 - Unspecified hemorrhoids Category: Medical Plan English #Natasha Live She continues on Linzess 290 and bisacodyl 1 qhs with simethicone and omeprazole in the morning and famotidine at night, Reglan 10 mg 4 times a day, dicyclomine. She is now satisfied with her GI regimen. she has been having more trouble with roids recently even though she feels her CIC regimen is okay. Sending proctosol. She is due for labs and ultrasound for her HILTON monitoring and we will get these ordered. She is due for repeat screening colonoscopy. She has occasional troubles with palpitations but has medication to control it and she denies any respiratory problems. There are no prior problems with anesthesia or sedation. There are no infectious disease problems. She had a TA in 2019 and is due for we scope. ROV 6 mos. Orders: Orders Complete Blood Count Auto Diff Today Z818 - Encounter for other preprocedural examination US abdomen complete Today K31.84 - Gastroparesis, K64.9 - Unspecified hemorrhoids, K75.81 - Nonalcoholic steatohepatitis (HILTON) Comprehensive Met. Panel Today Z818 - Encounter for other preprocedural examination Colonoscopy - GI Use Only Today [id number] - Encounter for other preprocedural examination Medications: New dicyclomine 20 mg (2 x 10 mg) PO QID PRN 120 caps 6RF abdominal pain R10.9 - Unspecified abdominal pain Refilled hydrocortisone 2.5% (Proctosol HC) 1 appl IA BID 30 grams 6RF hemorrhoids K64.9 - Unspecified hemorrhoids famotidine (Pepcid) 40 mg PO BEDTIME 30 tabs 6RF linaclotide (Linzess) 290 mcg PO QAM 30 days 30 caps 6RF K59.04 - Chronic idiopathic constipation metoclopramide HCl (Reglan) 10 mg PO QIDACHS 120 tabs 6RF K31.84 - Gastroparesis omeprazole 40 mg PO DAILY 90 caps 2RF simethicone after meals 180 mg PO QID 30 days 120 caps 3RF docusate sodium (Colace) 100 mg PO .DAILY WITH FOOD PRN 90 caps 0RF constipation K59.04 - Chronic idiopathic constipation bisacodyl (Dulcolax (bisacodyl)) 10 mg (2 x 5 mg) PO BEDTIME 30 days 60 tabs 6RF K59.04 - Chronic idiopathic constipation Laboratory Tests 11/07/24 06:51 WBC 7.8 Hgb 13.2 Hct 40.1 Plt Count 304 Estimated GFR > 60 Total Bilirubin 0.2 AST 16 ALT 23 Alkaline Phosphatase 61 US ABD 12/06/24 Findings: The visualized pancreas is normal. The aorta and inferior vena cava are normal caliber. Increased hepatic echogenicity. There is no intrahepatic bile duct dilatation. The common duct is 6 mm in diameter. The gallbladder is normal. There is no sonographic Macias sign. The main portal vein is antegrade. The right kidney is 10.5 cm in length. The left kidney is 10.8 cm in length. The marriage and family therapist measures a homogeneously hyperechoic mass arising from the lower pole of the left kidney possibly representing an AML measuring 2.3 x 2.3 x 2.3 cm. The spleen is normal. No ascites. IMPRESSION: 1. Hepatic steatosis. 2. 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 Confirmation with MRI or CT is recommended. TODAYS VISIT English # REPLACED BY [facility] Medical History Essential hypertension Osteoarthritis Patellofemoral arthritis of left knee Osteoarthritis of left knee Left knee pain Left leg pain Angiolipoma Nausea and vomiting Abdominal pain Retention of urine Left renal mass Disc degeneration, lumbar Knee osteoarthritis Urinary incontinence Diverticulitis Hemorrhoids Skin lesion Abdominal cramping Urinary urgency Low back pain Diarrhea Skin change Physical exam Diabetes Androgenic alopecia Angiomyolipoma of kidney Urinary incontinence Hair loss Spondylosis of lumbar spine Headache Polyarthralgia Vomiting and diarrhea Normal colonoscopy Tachycardia Fibromyalgia Dyspepsia Surgical History Hx of colonoscopy (~2010) History of esophagogastroduodenoscopy (EGD) (~2017) History of breast biopsy (~2005) Tubal ligation status History of hysterectomy Family History Father No problems noted. Mother Pulmonary hypertension CVD (cardiovascular disease) HTN (hypertension) Maternal Aunt Breast cancer Maternal Aunt Breast cancer Paternal Aunt Lymphoma Paternal Uncle Gastric cancer Other Cancer Diabetes Urinary incontinence Social History Household Members: Family Housing: Apartment Alcohol intake: never Patient Tobacco Use Status: Never used Tobacco e-Cigarette/Vaping Use: Never Used Second Hand Smoke Exposure: No service: No Current occupational status: unemployed Cognitive needs: Yes Hearing needs: No Vision needs: Yes Review of Systems Const Denies fatigue, Denies fever(s), Denies night sweats, Reports poor appetite and Denies weight loss ENT Reports Normal hearing present, Denies dental pain, Denies dysphagia, Reports dizziness, Denies hearing loss, Denies mouth pain, Denies odynophagia, Denies throat swelling, Denies tongue swelling and Reports other (Dentition adequate) Card Reports no additional complaints Resp Reports no additional complaints GI Details: Reports abdominal pain, Denies melena, Denies bloating, Denies hematochezia, Reports constipation, Denies GI cramping, Denies dysphagia, Denies excessive flatus, Denies early satiety, Reports heartburn, Denies diarrhea, Reports loose stools, Reports nausea, Denies odynophagia, Denies vomiting and Denies hematemesis Skin/Breast Denies pruritus, Denies lesions, Denies rash and Denies jaundice Neuro Reports Normal hearing present, Denies Abnormal speech present and Reports dizziness Endo Denies fatigue Aller/Immun Denies throat swelling and Denies tongue swelling Physical Exam Vital Signs: Last Vital Signs Pulse 74 04/21/25 12:57 BP 130/82 04/21/25 12:57 Pulse Ox 100 04/21/25 12:57 Oxygen Delivery Method Room Air 04/21/25 12:57 BMI result Body Mass Index 27.8 Const General: cooperative, no acute distress, well developed and well groomed Nutritional Appearance: average body habitus and well nourished Orientation/consciousness: oriented to person, oriented to place and oriented to time Limitations: language barrier and ambulation with cane HEENT Head: Yes normocephalic and Yes atraumatic Eyes General: appearance normal, both eyes and all related structures Pupils: Equal, round and reactive pupils present Neck Neck: Yes normal visual inspection and Yes no lymphadenopathy Thyroid: Thyroid normal Resp Effort & Inspection: normal respiratory effort and able to speak in complete sentences Auscultation: clear to auscultation bilaterally Cardio Rate: regular rate Rhythm: regular rhythm Heart sounds: Normal, physiologic split S2 sound present Peripheral pulses: radial pulses present and posterior tibial pulses present GI Inspection: No distended and No Abdominal panniculus present Palpation (GI): Soft to palpation, nontender, no guarding, not rigid, No hepatosplenomegaly present and Hepatosplenomegaly present Percussion: Yes normal to percussion Auscultation: normal bowel sounds Rectal Exam - Female: deferred Skin General skin exam: no rashes or lesions noted, turgor normal, skin not dry, no jaundice, No spider nevi and no striae Rashes: no rashes Nails: normal Neuro General: oriented to person, oriented to place and oriented to time Cranial nerves: Yes Equal, round and reactive pupils present and Yes Normal hearing present Speech: No Abnormal speech present Extrem General: Yes normal to inspection, No clubbing, No cyanosis and No edema Psych Appearance: grossly normal and well kempt Mental Status: mental status grossly normal Speech and movement: Normal speech and movement present Affect: normal affect Attitude: cooperative Thought process: Normal thought process present and not confabulating Thought content: Normal thought content present Insight: Fair insight present (Psych) and Limited insight present (Psych) Judgement: Fair judgement present (Psych) and Limited judgement present (Psych) Results Reviewed Results Reviewed: Laboratory Tests 11/07/24 06:51 WBC 7.8 Hgb 13.2 Hct 40.1 Plt Count 304 Estimated GFR > 60 Total Bilirubin 0.2 AST 16 ALT 23 Alkaline Phosphatase 61 US ABD 12/06/24 Findings: The visualized pancreas is normal. The aorta and inferior vena cava are normal caliber. Increased hepatic echogenicity. There is no intrahepatic bile duct dilatation. The common duct is 6 mm in diameter. The gallbladder is normal. There is no sonographic Macias sign. The main portal vein is antegrade. The right kidney is 10.5 cm in length. The left kidney is 10.8 cm in length. The marriage and family therapist measures a homogeneously hyperechoic mass arising from the lower pole of the left kidney possibly representing an AML measuring 2.3 x 2.3 x 2.3 cm. The spleen is normal. No ascites. IMPRESSION: 1. Hepatic steatosis. 2. 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 Confirmation with MRI or CT is recommended. Assessment & Plan Assessment & Plan (1) Nausea: Code(s): R11.0 - Nausea Category: Medical (2) Gastroparesis: Code(s): K31.84 - Gastroparesis Category: Medical (3) Chronic idiopathic constipation: Code(s): K59.04 - Chronic idiopathic constipation Category: Medical (4) GERD (gastroesophageal reflux disease): Code(s): K21.9 - Gastro-esophageal reflux disease without esophagitis Category: Medical Qualifiers: Esophagitis presence: esophagitis presence not specified Qualified Code(s): K21.9 - Gastro-esophageal reflux disease without esophagitis Plan English #Tracy Live She continues on Linzess 290 and bisacodyl 1 qhs with simethicone and omeprazole in the morning and famotidine at night, Reglan 10 mg 4 times a day, dicyclomine. She tells me that 4 weeks ago she began having return of her nausea. She had severe nausea and vomiting prior to her gastroparesis diagnosis that was well controlled on her Reglan. She has also been having a change in her stooling with constipation alternating with looser stools. She can not identify any illness or diet changes but she did start taking 500 mg of metformin early in February. She was also complaining of generalized dizziness and weakness. She does feel that the Reglan in the dicyclomine help with the symptoms however she is not taking the Reglan 4 times a day because she finds it makes her sleepy. She does tolerate the dicyclomine better throughout the day. She tried stopping her metformin and she found that it did seem to help with her dizziness but not with her nausea. I am really not sure what to say about this as metformin can cause these symptoms but I do not condone her stopping it without speaking to the provider. She will be seeing her primary care provider who is the prescriber next week and I encouraged her to report these symptoms. It is possible they could be alleviated by cutting a 500 mg pill in half and titrating her dose up more slowly or considering changing to a long-acting formulation. Otherwise they would need to make a different plan for her diabetes, and I fear that a GLP 1 or Trulicity would exacerbate her gastroparesis. However we will try hard to work around whatever she needs an order to protect her health. For now we are going to watch and wait. I review her ultrasound and there is an angio myelolipoma of her renal system but she is seeing a sustainable agriculture faculty who is keeping an eye on it for her. Otherwise the ultrasound is fairly unremarkable as are her labs. Return office visit in 6 weeks, ask her she has a colonoscopy scheduled at the next visit since it was ordered in October of 2024 and she was due for repeat in the year 2024. Medications: Refilled docusate sodium (Colace) 100 mg PO .DAILY WITH FOOD PRN 90 caps 0RF constipation K59.04 - Chronic idiopathic constipation metoclopramide HCl (Reglan) 10 mg PO QIDACHS 120 tabs 6RF K31.84 - Gastroparesis famotidine (Pepcid) 40 mg PO BEDTIME 30 tabs 6RF hydrocortisone 2.5% (Proctosol HC) 1 appl IA BID 30 grams 6RF hemorrhoids K64.9 - Unspecified hemorrhoids linaclotide (Linzess) 290 mcg PO QAM 30 caps 6RF 30 days K59.04 - Chronic idiopathic constipation simethicone after meals 180 mg PO QID 120 caps 3RF 30 days omeprazole 40 mg PO DAILY 90 caps 2RF dicyclomine 20 mg (2 x 10 mg) PO QID PRN 120 caps 6RF abdominal pain R10.9 - Unspecified abdominal pain Coding Level of Care Code Est Pt Level 3 (51298) Diagnoses Nausea R11.0 Gastroparesis K31.84 Chronic idiopathic constipation K59.04 Gastroesophageal reflux disease, unspecified whether esophagitis present K21.9 Esophagitis presence: esophagitis presence not specified
[2025-04-21 12:57] VITALS: BP 130/82; PULSE 74; O2SAT 100; BMI 27.8
--- OUTSIDE RECORDS SUMMARY | 2025-04-21 14:28 | XMS_ITS | Clinical Summary ---
Author Organization [facility] Address [address] [place] [address] Phone Care Team Providers Care Reciprocating Drill Operator Name Role Phone Unavailable Primary Care Provider Unavailabl e Surgical History Surgery Date Site/Laterality Comments HYSTERECTOMY PROCEDURE: HISTORICAL HYSTERECTOMY COLONOSCOPY PROCEDURE: HISTORICAL COLONOSCOPY; COMMENT: + polyps, BREAST SURGERY Right PROCEDURE: MA UNLISTED PROCEDURE BREAST; COMMENT: 2008 biopsies BREAST [...] Health Maintenance Due Date Last Done Comments Colorectal Cancer Screening: Colonoscopy 1964 DTaP,Tdap,and Td Vaccines (1 - Tdap) 1983 Cervical Cancer Screening: P ap Smear 1985 Pneumococcal Vaccine: 50+ Ye ars (1 of 1 - PCV) 2014 Zoster Vaccines (1 of 2) 2014 Cholesterol Screening (Lipid Panel) 05/09/2022 HIV Screening 05/09/2022 Hepatitis C Screening 05/09/2022 Social Influencers of Health Screening 05/09/2022 Hypertension/CHF/CAD Annual BMP Blood Test 05/27/2022 Breast Cancer Screening 12/29/2022 12/29/2020 Depression Screening 06/11/2024 COVID-19 Vaccine ( - 2024-2 6 season) 2025 Influenza Vaccine (#1) 2025 RSV Immunization Adult Patie nts (1 [...]
== END 2025-04-21 14:02 | disposition home or self-care (01) ==
LOC: HO.HGI 12:45
PROVIDERS: PCP Internal Medicine; Visit Provider Nurse Practitioner
DX: R11.0 Nausea (principal); K31.84 Gastroparesis; K59.04 Chronic idiopathic constipation; K21.9 Gastro-esophageal reflux disease without esophagitis
CPT/HCPCS: 99213

== ENCOUNTER → 2025-04-21 12:44 | Outpatient (BNVA) | payer OTHER, SELFPAY | PROVIDERS: PCP Internal Medicine; Visit Provider Nurse Practitioner | DX: R11.0 Nausea (principal); K31.89 Other diseases of stomach and duodenum; K59.04 Chronic idiopathic constipation; K21.9 Gastro-esophageal reflux disease without esophagitis | CPT/HCPCS: 99212 ==

== ENCOUNTER 2025-04-28 10:49 | Outpatient (AMB) | payer OTHER, SELFPAY ==
--- NOTE | 2025-04-28 11:21 | A.OFFPC_ITS ---
Vital Signs 04/28/25 11:22 Height 5 ft 6 in Weight 169 lb BMI 27.3 BP 122/80 Blood Pressure Location Rt brachial Position Sitting Pulse 72 Pulse Source Pulse Oximeter Temp Source Temporal Artery Scan Pulse Oximetry (%) 98 Oxygen Delivery Method Room Air Intake Visit Reasons: depression Intake Note: Patient is here to follow up on Depression. Pricing Clerk Required: No Climbing Guide: Not Required per policy Accompanied by: Self / Same As Patient Allergies No Known Allergies Allergy (Verified 04/28/25 12:01) Medication List - Last Reconciled 04/28/25 by Mara Lorenzo MD atorvastatin 40 mg PO BEDTIME 90 days bisacodyl (Dulcolax (bisacodyl)) 10 mg (2 x 5 mg) PO BEDTIME 30 days celecoxib (Celebrex) 200 mg PO BID 30 days cyclobenzaprine 10 mg PO BID PRN 30 days diclofenac sodium 1% 2 grams topical BID PRN dicyclomine 20 mg (2 x 10 mg) PO QID PRN disposable gloves (Biobrane Gloves Medium) Use 1 pair of gloves as needed docusate sodium (Colace) 100 mg PO .DAILY WITH FOOD PRN famotidine (Pepcid) 40 mg PO BEDTIME hydrochlorothiazide 25 mg PO DAILY 90 days hydrocortisone 2.5% (Proctosol HC) 1 appl AR BID incontinence pad, liner, disp As directed [lift chair As directed] linaclotide (Linzess) 290 mcg PO QAM 30 days metformin 500 mg PO DAILY 90 days metoclopramide HCl (Reglan) 10 mg PO QIDACHS metoprolol succinate ER 50 mg PO DAILY mirtazapine 15 mg PO BEDTIME 30 days omeprazole 40 mg PO DAILY pregabalin 75 mg PO BID 30 days Shower Chair As directed simethicone 180 mg PO QID 30 days tramadol 50 mg PO DAILY PRN 30 days underpads (Certainty Underpads) Use 1 underpad once a day walker As directed [wipes As directed] Tobacco use date assessed: 04/28/25 Dental Screening Dental Screen Date: 10/20/24 Did you have a dental visit in the last 12 months?: Yes Did you have a dental problem in the last 6 months where you did not have access to dental care?: No Was dental information given to patient?: Patient has dentist HPI HPI Comments History of Present Illness Details The patient is a 60-year-old female presenting for management of multiple chronic medical conditions. The patient has a history of fibromyalgia and uses a cane for gait stability. Her current medications include atorvastatin 40 mg, Celebrex, Flexeril, Colace, Pepcid, hydrochlorothiazide, Reglan, metoprolol, mirtazapine, omeprazole, pregabalin, simethicone, and tramadol. 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 Regarding her history of depression, the patient reports feeling so-so. She denies experiencing diarrhea from her medications. Her last A1c was 5.9% today and she is on metformin. Complains of nausea most likely secondary to metformin and I told her to hold metformin for about a month and do blood work in a month. [facility] Medical History Diabetes Essential hypertension Osteoarthritis Patellofemoral arthritis of left knee Osteoarthritis of left knee Left knee pain Left leg pain Angiolipoma Nausea and vomiting Abdominal pain Retention of urine Left renal mass Disc degeneration, lumbar Knee osteoarthritis Urinary incontinence Diverticulitis Hemorrhoids Skin lesion Abdominal cramping Urinary urgency Low back pain Diarrhea Skin change Physical exam Androgenic alopecia Angiomyolipoma of kidney Urinary incontinence Hair loss Spondylosis of lumbar spine Headache Polyarthralgia Vomiting and diarrhea Normal colonoscopy Tachycardia Fibromyalgia Dyspepsia Surgical History Hx of colonoscopy (~2010) History of esophagogastroduodenoscopy (EGD) (~2017) History of breast biopsy (~2005) Tubal ligation status History of hysterectomy Family History Father No problems noted. Mother Pulmonary hypertension CVD (cardiovascular disease) HTN (hypertension) Maternal Aunt Breast cancer Maternal Aunt Breast cancer Paternal Aunt Lymphoma Paternal Uncle Gastric cancer Other Cancer Diabetes Urinary incontinence Social History Household Members: Family Housing: Apartment Alcohol intake: never Patient Tobacco Use Status: Never used Tobacco e-Cigarette/Vaping Use: Never Used Second Hand Smoke Exposure: No service: No Current occupational status: unemployed Cognitive needs: Yes Hearing needs: No Vision needs: Yes Questionnaire Thrive Questionnaire Date Thrive assessed: 10/20/24 I am a: Patient What is your living situation today?: I have a steady place to live Within the past 12 months, did the food you bought not last and you didn't have the money to get more?: Sometimes True Within the past 12 months, did you worry whether your food would run out before you got money to buy more?: I choose not to answer this question Do you have trouble paying for medicines?: No Do you have trouble getting transportation to medical appointments?: No Do you have trouble paying your heating and electricity bill?: No Do you have trouble taking care of your child, family member or friend?: No Do you have trouble with day-to-day activities such as bathing, preparing meals, shopping, managing finances, etc.?: Yes Are you currently unemployed and looking for a job?: No Are you interested in more education?: No Please select the resources that you would like help with: Daily support Currently or been in a relationship where the following occur: No concerns reported THRIVE Score: 1 AUDIT C Alcohol Use Questionnaire (AUDIT-C) 3. How often do you have six or more drinks on one occasion?: Never Total Score: 0 KAYLA-7 AMB Questionnaire KAYLA-7 Date KAYLA - 7 assessed: 10/20/24 Source: Developed by Drs. Peter Moreno, Yanna Madrigal, Christopher Lee and colleagues, with an educational ruslan from [employer]. Review of Systems Const All systems reviewed & are unremarkable except as noted in HPI and below Card Denies chest pain at rest, Denies chest pain with activity, Denies edema, Denies irregular heart rhythm, Denies claudication, Denies dyspnea, Denies dyspnea on exertion, Denies orthopnea, Denies paroxysmal nocturnal dyspnea and Denies slow heart rate Resp Denies cough, Denies dyspnea and Denies dyspnea on exertion GI Denies abdominal pain, Denies change in bowel habits, Denies excessive flatus, Denies nausea and Denies vomiting Physical exam (Primary Care) Vital Signs: Last Vital Signs Pulse 72 04/28/25 11:22 BP 122/80 04/28/25 11:22 Pulse Ox 98 04/28/25 11:22 Oxygen Delivery Method Room Air 11/18/25 11:22 BMI result Body Mass Index 27.3 Tobacco/Smoking Status: Tobacco use Status Tobacco use date assessed 04/28/25 04/28/25 11:22 Patient Tobacco Use Status Never used Tobacco 04/28/25 11:22 e-Cigarette/Vaping Use Never Used 04/28/25 11:22 Thrive Assessment: Date of Thrive Assessment Date Thrive assessed 10/20/24 04/28/25 11:22 Currently or been in a relationship where the following occur: No concerns reported Neck Neck: Yes normal visual inspection and Yes supple Resp Effort & Inspection: normal respiratory effort Auscultation: clear to auscultation bilaterally Cardio Jugular venous distension: no JVD Rate: regular rate Rhythm: regular rhythm Heart sounds: S1 normal heart sound present and S2 normal heart sound present Extrem General: Yes full ROM Coding Level of Care Code Est Pt Level 4 (08902) Diagnoses Diabetes E11.9 Primary hypertension I10 Hypertension type: primary hypertension Moderate recurrent major depression F33.1 Fibromyalgia M79.7 Time Spent (min) 21 Assessment & Plan Assessment & Plan (1) Diabetes: Comment: DX via abnormal 3 hour glucose tolerance test Code(s): E11.9 - Type 2 diabetes mellitus without complications Category: Medical (2) Hypertension: Code(s): I10 - Essential (primary) hypertension Category: Medical Qualifiers: Hypertension type: primary hypertension Qualified Code(s): I10 - Essential (primary) hypertension (3) Moderate recurrent major depression: Code(s): F33.1 - Major depressive disorder, recurrent, moderate Category: Medical (4) Fibromyalgia: Code(s): M79.7 - Fibromyalgia Category: Medical Plan Plan 1. Fibromyalgia The patient will continue current management for fibromyalgia. She utilizes a cane for gait stability. 2. Angiomyolipoma Of Kidney The patient will follow up with her police lieutenant patrol and is scheduled to have an abdominal CT scan for the angiomyolipoma. 3. Depression Given the patient reports feeling so-so, the plan is to continue current management. 4. Hyperglycemia The last glucose level was 128. The plan is to repeat labs. A trial of metformin will be considered. Orders: Orders AMB Hemoglobin A1c Today R73.01 - Impaired fasting glucose Lipid Panel Today E78.5 - Hyperlipidemia, unspecified Microalbumin, Random (w Creat) Today R80.9 - Proteinuria, unspecified Comprehensive [place]. Panel Fast Today E11.9 - Type 2 diabetes mellitus without complications
[2025-04-28 11:22] VITALS: BP 122/80; PULSE 72; O2SAT 98; BMI 27.3
== END 2025-04-28 12:12 | disposition home or self-care (01) ==
LOC: HO.HMCH 10:50
PROVIDERS: PCP Internal Medicine; Visit Provider Internal Medicine
DX: E11.9 Type 2 diabetes mellitus without complications (principal); I10 Essential (primary) hypertension; F33.1 Major depressive disorder, recurrent, moderate; M79.7 Fibromyalgia

== ENCOUNTER → 2025-04-28 10:49 | Outpatient (BNVA) | payer OTHER, SELFPAY | PROVIDERS: PCP Internal Medicine; Visit Provider Internal Medicine | DX: M79.7 Fibromyalgia (principal); D17.71 Benign lipomatous neoplasm of kidney; E11.9 Type 2 diabetes mellitus without complications; I10 Essential (primary) hypertension; F33.1 Major depressive disorder, recurrent, moderate; R80.9 Proteinuria, unspecified; Z79.84 Long term (current) use of oral hypoglycemic drugs; Z99.89 Dependence on other enabling machines and devices; Z79.899 Other long term (current) drug therapy | CPT/HCPCS: 99212 ==

== ENCOUNTER 2025-05-18 14:19 | Outpatient (REF) | payer OTHER, SELFPAY ==
--- NOTE | ~2025-05-18 | CT_ITS ---
EXAMINATION: CT ABDOMEN WITH CONTRAST CLINICAL INFORMATION: D17.71 - Benign lipomatous neoplasm of kidney COMPARISON: July 24, 2022 and 03/16/2020 TECHNIQUE: Contiguous axial thin section helical images of the abdomen were performed following the administration of 85 mL of Omnipaque 350 intravenous contrast. The data set was reformatted in the coronal and sagittal planes and reviewed on an independent workstation. This CT examination was performed using dose optimization techniques as appropriate, variously including the following: *Automated exposure control *Adjustment of mA and/or kV according to patient size (this includes techniques or standardized protocols for targeted exams where dose is matched to indication/reason for exam; i.e. extremities or head) *Use of iterative reconstruction technique FINDINGS: LUNG BASES: Clear LIVER, GALLBLADDER, AND BILIARY TREE: The liver is homogeneous. The gallbladder demonstrates no calcified stones or wall thickening. There is no bile duct dilation. PANCREAS: Unremarkable. SPLEEN: Unremarkable. ADRENAL GLANDS: Unremarkable KIDNEYS: Again seen is an exophytic mass extending inferiorly from the lower pole the left kidney that is mostly fat density with peripheral and central areas of enhancement. It measures 2.1 x 1.6 x 1.8 cm, and previously measured 2.1 x 1.8 x 2.1 cm (CC by transverse by AP). The kidneys are otherwise unremarkable. BOWEL LOOPS: Visualized bowel loops in the abdomen are unremarkable. LYMPH NODES: No adenopathy VASCULAR: Minimal atherosclerotic desiccation is present BONES: Mild to moderate degenerative changes are evident in the lower thoracic spine. CT/CT abdomen w IV con IMPRESSION: Stable exophytic mass involving inferior pole left kidney likely representing an angiomyolipoma. . Similar on CT performed March 2020. Fleischner guidelines were followed. Electronically signed by: Tenzin Arriaga MD 05/18/2025 05:53 PM EST
[2025-05-18 16:11] LABS: Alanine Aminotransferase 15 U/L (0-31); Albumin Level 5.0 g/dL (3.5-5.0); Alkaline Phosphatase 69 U/L (39-117); Anion Gap 14 (12-20); Aspartate Amino Transferase 17 U/L (5-31); Blood Urea Nitrogen 16 mg/dL (9-16); Calcium 10.2 mg/dL (8.4-10.2); Carbon Dioxide 28 mmol/L (22-29); Chloride 100 mmol/L (96-108); Cholesterol 312 mg/dL (<200); Estimated Glomerular Filt Rate > 60; HDL Cholesterol 42 mg/dL (>40); Potassium 3.4 mmol/L (3.3-5.1); Sodium 139 mmol/L (135-145); Total Protein 8.2 g/dL (6.5-8.0); Triglycerides 177 mg/dL (<150)
[2025-05-18] MEDS: iohexoL 350 MG/ML 100 ML INFUS..BTL IV (17:02)
--- OUTSIDE RECORDS SUMMARY | 2025-05-18 23:16 | XMS_ITS | Clinical Summary ---
Author Organization [facility] [employer] Address [address] [facility] [place] [place] [address] Phone Care Team Providers Care Refrigeration Insulator Name Role Phone Unavailable Primary Care Provider Unavailabl e Surgical History Surgery Date Site/Laterality Comments HYSTERECTOMY PROCEDURE: HISTORICAL HYSTERECTOMY COLONOSCOPY PROCEDURE: HISTORICAL COLONOSCOPY; COMMENT: + polyps, BREAST SURGERY Right PROCEDURE: [place] UNLISTED PROCEDURE BREAST; COMMENT: 2008 biopsies BREAST [...] on file Sexual Orientation Not on file Plan of Treatment Health Maintenance Due Date [...] Recommendation: Routine annual screening mammography is recommended us Leslye KRAUS IMG BI PROCEDURES Final Resul t from Last 3 Months or Most Recently Relevant to Health Maintenance Insurance [place] - [place]
== END 2025-05-18 14:20 | disposition home or self-care (01) ==
LOC: HO.CT 14:19
PROVIDERS: PCP Internal Medicine; Visit Provider Internal Medicine Nephrology
DX: D17.71 Benign lipomatous neoplasm of kidney (principal); E78.5 Hyperlipidemia, unspecified; R80.9 Proteinuria, unspecified; E11.9 Type 2 diabetes mellitus without complications
CPT/HCPCS: 36415; 74160; 80053; 80061; 82570; Q9967

== ENCOUNTER → 2025-05-18 14:32 | Outpatient (BNV) | payer OTHER, SELFPAY | PROVIDERS: PCP Internal Medicine; Visit Provider Radiology Diagnostic Radiology | DX: N28.89 Other specified disorders of kidney and ureter (principal) | CPT/HCPCS: 74160 ==